=== PATIENT | male | born 1975 | race Hispanic/Latino ===

== ENCOUNTER 2017-05-29 08:41 | Inpatient (IN) | payer OTHER ==
[2017-05-29 08:52] VITALS: BMI 42.5
[2017-05-29 11:23] LABS: BASO # 0.1 K/uL (0.0-0.2); EOS # 0.1 K/uL (0.0-0.7); EOS % 1.5 % (0.0-4.0); HEMOGLOBIN 15.1 g/dL (12.0-18.0); LYMPH # 1.7 K/uL (1.0-4.3); LYMPH % 16.8 % (20.0-40.0); MEAN CELL VOLUME 88.8 fL (80.0-94.0); MEAN CORPUSCULAR HEMOGLOBIN 29.7 pg (27.0-31.0); MEAN CORPUSCULAR HGB CONC 33.5 g/dL (33.0-37.0); MEAN PLATELET VOLUME 8.3 fL (7.2-11.7); MONO # 0.6 K/uL (0.0-0.8); MONO % 6.2 % (0.0-10.0); NEUT # 7.5 K/uL (1.8-7.0); NEUT % 74.5 % (50.0-75.0); NRBC % 0.1 % (0.0-2.0); RBC 5.07 Mil/uL (4.40-5.90); RED CELL DISTRIBUTION WIDTH 14.4 % (11.5-14.5)
[2017-05-29 11:31] LABS: ALB/GLOB RATIO 0.8 (1.0-2.1); ALBUMIN 3.9 g/dL (3.5-5.0); ALT/SGPT 31 U/L (21-72); AST/SGOT 31 U/L (17-59); BLOOD UREA NITROGEN 14 mg/dL (9-20); CALCIUM 9.6 mg/dl (8.6-10.4); GFR AFRICAN-AMERICAN > 60; GFR NON-AFRICAN AMERICAN > 60
[2017-05-29 11:38] LABS: INR 1.2
[2017-05-29 11:40] LABS: PROTHROMBIN TIME 14.1 SECONDS (9.7-12.2)
[2017-05-29 11:41] LABS: SQUAMOUS EPITHIAL 3 /hpf (0-5); URINE BACTERIA OCC (<OCC); URINE BILIRUBIN NEGATIVE (NEGATIVE); URINE BLOOD 3+ (NEGATIVE); URINE CLARITY Hazy (Clear); URINE COLOR Yellow (YELLOW); URINE GLUCOSE (UA) NORMAL (Normal); URINE LEUKOCYTE ESTERASE 3+ Leu/uL (Negative); URINE PROTEIN 2+ mg/dL (NEGATIVE); URINE UROBILINOGEN NORMAL mg/dL (0.2-1.0)
--- NOTE | 2017-05-29 11:53 | C.PDOC ---
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 Rhett Sanchez for further evaluation on multiple kidney stones. Patient has has stone for more than 1 year with occasional hematuria. Patient is bedbound and denies fever, nausea, vomiting or any other physical complaints at this time. Chief Complaint (Nursing): Medical Clearance History Per: Patient History/Exam Limitations: no limitations Onset/Duration Of Symptoms: Days Current Symptoms Are (Timing): Still Present Past Medical History Reviewed: Historical Data, Nursing Documentation, Vital Signs Vital Signs: Last Vital Signs Temp 97.2 F L 05/29/17 14:30 Pulse 89 05/29/17 14:30 Resp 20 05/29/17 14:30 BP 130/84 05/29/17 14:30 Pulse Ox 99 05/29/17 14:30 - Medical History PMH: Back Problems, Gastritis, Kidney Stones Surgical History: Back Surgery Family History: States: No Known Family Hx - Social History Hx Alcohol Use: No Hx Substance Use: No - Immunization History Hx Tetanus Toxoid Vaccination: No Hx Influenza Vaccination: No Hx Pneumococcal Vaccination: No Review Of Systems Constitutional: Negative for: Fever, Chills Gastrointestinal: Negative for: Nausea, Vomiting Genitourinary: Positive for: Hematuria. Negative for: Dysuria Physical Exam - Physical Exam Appears: Non-toxic, Other (Morbidly obese) Skin: Warm, Dry, No Rash Head: Atraumatic, Normacephalic Eye(s): bilateral: Normal Inspection Oral Mucosa: Moist Neck: Normal ROM, Supple Cardiovascular: Rhythm Regular Respiratory: Normal Breath Sounds, No Rales, No Rhonchi, No Wheezing Gastrointestinal/Abdominal: Soft, No Tenderness, No Guarding, No Rebound Extremity: Normal ROM, Other (Right upper extremity Atrophy noted) Neurological/Psych: Oriented x3, Normal Speech, Normal Cognition ED Course And Treatment - Laboratory Results Result Diagrams: 05/29/17 11:15 05/29/17 11:15 ECG: Interpreted By Me, Viewed By Me ECG Rhythm: Sinus Rhythm Rate From EC (BPM) O2 Sat by Pulse Oximetry: 98 (RA) Pulse Ox Interpretation: Normal Progress Note: Spoke with Dr. Sanchez requested pre op labs and admission to medicine for procedure in hospital Disposition - Disposition Disposition: HOSPITALIZED Disposition Time: 11:00 Condition: STABLE - Clinical Impression Clinical Impression: Kidney stones, UTI (urinary tract infection) - Scribe Statement The provider has reviewed the documentation as recorded by the Andreibrhett Stephen All medical record entries made by the Andreibrhett were at my direction and personally dictated by me. I have reviewed the chart and agree that the record accurately reflects my personal performance of the history, physical exam, medical decision making, and the department course for this patient. I have also personally directed, reviewed, and agree with the discharge instructions and disposition.
--- NOTE | 2017-05-29 12:06 | CT ---
PROCEDURE: CT Abdomen and Pelvis without intravenous contrast HISTORY: flank pain h/o multiple kidney stones COMPARISON: None. TECHNIQUE: Helical CT of the abdomen and pelvis was performed without oral or intravenous contrast as per referring physician request. Contrast Dose: None Radiation dose: Total exam DLP = 1335.79 mGy-cm. This CT exam was performed using one or more of the following dose reduction techniques: Automated exposure control, adjustment of the mA and/or kV according to patient size, and/or use of iterative reconstruction technique. FINDINGS: LOWER THORAX: Mild cardiomegaly noted. There is a mild hiatal hernia. Limited bilateral basilar dependent atelectasis. No pleural or pericardial effusion. LIVER: Liver is diminished in attenuation diffusely compatible with hepatic steatosis. Hepatomegaly is also identified artifact from body habitus limits evaluation of hepatic detail as well as lack of intravenous contrast. No gross mass appreciable. GALLBLADDER AND BILE DUCTS: Unremarkable. PANCREAS: Unremarkable. No gross lesion or ductal dilatation. SPLEEN: Splenomegaly is identified to 15.5 cm also without definitive mass appreciable. ADRENALS: Unremarkable. No mass. KIDNEYS AND URETERS: Bilateral [id number] hydronephrosis is identified with numerous intrarenal calculi including at the bilateral renal pelves. Calculi are greater number at the left and right kidney. Mild proximal bilateral ureteral dilatation is identified with the mid and distal ureters normal in caliber. No radiodense urolithiasis identified in either ureter and the urinary bladder is unremarkable. Etiology bilateral hydronephrosis may be from bilateral renal pelvic calcifications including 1.7 cm calculus at the right and a 2.0 cm calculus at the left renal pelvis. A borderline left renal staghorn calcification appears to be developing. No definite perinephric fluid collection although limited parity nephric reaction seen bilaterally but greater the left than on the right. VASCULATURE: The abdominal aorta appears normal in caliber throughout. An infrarenal inferior vena cava filter identified in position. BOWEL: Unremarkable. No obstruction. No gross mural thickening. APPENDIX: Unremarkable. Normal appendix. PERITONEUM: Unremarkable. No free fluid. No free air. LYMPH NODES: Unremarkable. No enlarged lymph nodes. BLADDER: Unremarkable. REPRODUCTIVE: Unremarkable. BONES: Gross deformity of the right hip is appreciated with the greater and lesser trochanter exhibiting exostoses fusing with the inferomedial and superolateral acetabular margins. OTHER FINDINGS: None. IMPRESSION: Extensive intrarenal calculi identified bilaterally with [id number] bilateral hydronephrosis likely as a function of large intrapelvic calculi as described above. There is a near staghorn calculus in the left kidney with intrarenal calculi more numerous on the left and right pelvocaliceal systems. Limited perinephric changes seen the left greater than right kidney. Proximal ureters are mildly prominent with the mid and distal segments normal caliber overall. Etiology uncertain though loosing calculi or strictures are a possibility. No radiodense calculi are seen in either ureter. Urinary bladder appears unremarkable. Additional lesser findings as discussed above including hepatic splenomegaly an hepatic steatosis and others.
--- NOTE | 2017-05-29 13:18 | RAD ---
Chest x-ray single frontal view History: Infiltrate. Comparison: None available. Findings: Mild venous congestion. Mild patchy increased markings at the left lung base. Tortuous ectatic aorta. Mild cardiomegaly. Filter device projecting over the medial right felton thorax. Clinical correlation. Degenerative changes spine. Impression: Mild venous congestion. Mild patchy increased markings at the left lung base. Tortuous ectatic aorta. Mild cardiomegaly. Filter device projecting over the medial right felton thorax. Clinical correlation.
--- NOTE | 2017-05-29 15:11 | CP.PCM.PN ---
Subjective - Date & Time of Evaluation Date of Evaluation: 05/29/17 Time of Evaluation: 08:25 - Subjective Subjective: CC "Back pain, kidney stone" HPI - 42 year old male with a past medical history of Wilsons (diagnosed 4 years ago at [facility]), renal stones, gastritis presents today for renal colic secondary to renal stones occurring for the last year and a half. Pain is in the middle of his back sometimes radiating to the left about 5/10. Comes and goes and is worse with movement. Nothing helps the pain. He urinates about every 3 hours, denied hematuria or dysuria. Denies fever/chills. Dr. Sanchez was consulted and plans to do a cysto procedure this evening. Patient is bedbound and has a sacral ulcer. PMHX - Wilsons (diagnosied 4 years ago at [facility]), renal stones, gastritis Meds - Penicillamine 250mg PO Q6, Tramadol 50mg PO TID Allergies - NKDA Surg - L4/L5 back surgery, groin surgery Famhx - uncle at 42 of lung cancer Social - denies drugs/tobacco/alcohol. Lives with his stepfather in and apartment in [place] PMD - Dr. Russ Irwin ([place]) Objective - Vital Signs/Intake and Output Vital Signs (last 24 hours): Temp Pulse Resp BP Pulse Ox 97.9 F 90 18 131/77 96 05/29/17 12:54 05/29/17 12:54 05/29/17 12:54 05/29/17 12:54 05/29/17 12:54 - Medications Medications: Current Medications Ceftriaxone Sodium 1 gm/ (Sodium Chloride) 100 mls @ 100 mls/hr IVPB DAILY CAROL PRN Reason: Protocol Last Admin: 05/29/17 12:50 Dose: 100 mls/hr - Labs Labs: 05/29/17 11:15 05/29/17 11:15 PT 14.1 SECONDS (9.7-12.2) H 05/29/17 11:15 INR 1.2 05/29/17 11:15 APTT 28 SECONDS (21-34) 05/29/17 11:15 - Constitutional Appears: Non-toxic, No Acute Distress, Chronically Ill, Other (malodorus ) - Head Exam Head Exam: ATRAUMATIC, NORMAL INSPECTION - Eye Exam Eye Exam: Normal appearance Pupil Exam: NORMAL ACCOMODATION - ENT Exam ENT Exam: Mucous Membranes Moist - Respiratory Exam Respiratory Exam: Clear to Ausculation Bilateral, NORMAL BREATHING PATTERN. absent: Respiratory Distress - Cardiovascular Exam Cardiovascular Exam: REGULAR RHYTHM, +S1, +S2 Additional comments: surg scar - GI/Abdominal Exam GI & Abdominal Exam: Soft, Normal Bowel Sounds. absent: Distended, Firm, Guarding, Tenderness - Extremities Exam Extremities Exam: Normal Inspection - Back Exam Back Exam: NORMAL INSPECTION Additional comments: sacral ulcer - Neurological Exam Neurological Exam: Alert, Awake, Oriented x3 - Psychiatric Exam Psychiatric exam: Normal Affect, Normal Mood - Skin Skin Exam: Dry, Intact, Normal Color, Warm Assessment and Plan - Assessment and Plan (Free Text) Assessment: Nephrolithias Npo for cysto this evening Dr. Rhett Sanchez consulted, help appreciated 1 dose ceftriaxone given in the ED f/u Urine culture Tramadol prn pain Wilsons disease Penicillamine 250mg PO Q6 Back pain Tramadol prn Prophylaxis SCDs NO chemical anticoagulation due to prep op Pepcid 20mg PO bid Sacral Ulcer Wound care on board All management per Dr. Akbar.
[2017-05-29] MEDS ORDERED: Propofol 10 mg/ml Inj (20 ML) ONE (17:02)
[2017-05-29] MEDS ORDERED: Midazolam 2 MG/2 ML VIAL ONE (17:02)
--- NOTE | 2017-05-29 17:03 | PCM.URO ---
Urology Progress Note - Objective Lab Studies: Reviewed (full note dictated, operating room immediately and then further plans to follow) Lab Results Last 24 Hours: Laboratory Results - last 24 hr 05/29/17 05/29/17 05/29/17 11:15 11:15 11:15 WBC 10.0 RBC 5.07 Hgb 15.1 Hct 45.0 MCV 88.8 MCH 29.7 MCHC 33.5 RDW 14.4 Plt Count 272 MPV 8.3 Neut % (Auto) 74.5 Lymph % (Auto) 16.8 L [place] % (Auto) 6.2 Eos % (Auto) 1.5 Baso % (Auto) 1.0 Neut # (Auto) 7.5 H Lymph # (Auto) 1.7 [place] # (Auto) 0.6 Eos # (Auto) 0.1 Baso # (Auto) 0.1 PT 14.1 H INR 1.2 APTT 28 Sodium 141 Potassium 3.9 Chloride 102 Carbon Dioxide 24 Anion Gap 19 BUN 14 Creatinine 0.9 Est GFR ( Amer) > 60 Est GFR (Non-Af Amer) > 60 Random Glucose 127 H Calcium 9.6 Total Bilirubin 1.0 AST 31 ALT 31 Alkaline Phosphatase 58 Total Protein 9.1 H Albumin 3.9 Globulin 5.2 H Albumin/Globulin Ratio 0.8 L Urine Color Urine Clarity Urine pH Ur Specific [place] Urine Protein Urine Glucose (UA) Urine Ketones Urine Blood Urine Nitrate Urine Bilirubin Urine Urobilinogen Ur Leukocyte Esterase Urine WBC (Auto) Urine RBC (Auto) Ur Squamous Epith Cells Urine Bacteria 05/29/17 11:31 WBC RBC Hgb Hct MCV MCH MCHC RDW Plt Count MPV Neut % (Auto) Lymph % (Auto) [place] % (Auto) Eos % (Auto) Baso % (Auto) Neut # (Auto) Lymph # (Auto) [place] # (Auto) Eos # (Auto) Baso # (Auto) PT INR APTT Sodium Potassium Chloride Carbon Dioxide Anion Gap BUN Creatinine Est GFR ( Amer) Est GFR (Non-Af Amer) Random Glucose Calcium Total Bilirubin AST ALT Alkaline Phosphatase Total Protein Albumin Globulin Albumin/Globulin Ratio Urine Color Yellow Urine Clarity Hazy Urine pH 5.0 Ur Specific [place] 1.016 Urine Protein 2+ H Urine Glucose (UA) Normal Urine Ketones Negative Urine Blood 3+ H Urine Nitrate Positive H Urine Bilirubin Negative Urine Urobilinogen Normal Ur Leukocyte Esterase 3+ H Urine WBC (Auto) 1553 H Urine RBC (Auto) 567 H Ur Squamous Epith Cells 3 Urine Bacteria Occ H Intake & Output: Intake & Output 05/28/17 05/29/17 05/29/17 18:59 06:59 18:59 Weight 350 lb Vital Signs: Vital Signs - 24 hr 05/29/17 05/29/17 05/29/17 08:45 11:56 12:54 Temperature 98.8 F 97.9 F Pulse Rate 84 90 Respiratory 20 18 Rate Blood Pressure 128/74 131/77 O2 Sat by Pulse 98 98 96 Oximetry 05/29/17 14:30 Temperature 97.2 F L Pulse Rate 89 Respiratory 20 Rate Blood Pressure 130/84 O2 Sat by Pulse 99 Oximetry
[2017-05-29] MEDS ORDERED: Iohexol 240 (50 ml) ONE (17:08)
[2017-05-29] MEDS: Gentamicin 160 MG in Sodium Chloride 0.9% 100 ML IVPB ONE ×2 (17:20→17:37)
[2017-05-29] MEDS ORDERED: Bacitracin Ointment 30 GM TUBE ONE (17:23)
[2017-05-29] MEDS: PENICILLAMINE 250 MG PO SCH ×2 (19:53→23:48)
[2017-05-30] MEDS: PENICILLAMINE 250 MG PO SCH ×3 (06:18→18:21)
--- NOTE | 2017-05-30 06:47 | CON ---
DATE: 05/29/2017UROLOGY CONSULT REASON FOR CONSULTATION: Stone disease. HISTORY OF PRESENT ILLNESS: Mr. Boss, I am just meeting him. I spoke to him on the phone. He has been calling me and his mother has been calling almost nonstop with request to take care of his stone disease. By phone, I had gotten the sense of the patient's general medical condition. He actually lives in [place], [place]. He is in some kind of assisted program. I discussed and recommended that he go to an academic center. After discussing options, it seems like the patient is having a lot of difficulty finding a doctor. I offered that we can help him, but we have been trying to figure of out a way that really do this. In the mean time now, the patient actually came today to the emergency room and came in with just worsening pain, blood in the urine perhaps, and he is known to have stone disease. After discussing the options with the ER physician, the patient is being admitted now to Dr. Akbar's service. Putting me on consultation, I am going to take care of the stones as best possible, see below. . Past medical and surgical history as listed on the chart. There is significant finding as the patient has underlying Jabier's disease. 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 He is interested but he has not been able to get any assistance the way he describes. His mother lives in [place]. The parents are . He describes that he is looking for some assistance (he will leave this to the social workers who are in the hospital and perhaps also opted any other suggestions). From the Urology standpoint, we are going to focus on stone disease. PAST MEDICAL AND SURGICAL HISTORY: As listed in the chart, otherwise, unremarkable. REVIEW OF SYSTEMS: As listed. PHYSICAL EXAMINATION: GENERAL/VITAL SIGNS: A well-developed, well-nourished male, currently resting comfortably, in no obvious distress. Apparently, before he had some grimacing and pain. Of note, the patient is about 6 feet 4 inches, about 250 plus pounds. The exact weight is to be determined. His respiratory status, is in no apparent distress. LUNGS: Clear. HEART: Normal. ABDOMEN: Overall soft. : Otherwise unremarkable. LABORATORY DATA: See chart. Also CT scan, see chart. The patient has a tremendous amount of stone burden; on the left side, he has a definite staghorn; the right side is not clear, but he has got a lot of stone . DIAGNOSES: Urolithiasis hematuria, voiding dysfunction, nocturia, urgency, frequency. PLAN: As follows. We are going to take care of the stones as best as possible. We will do as much as we can safely and may be even do cystourethroscopy today. We will see how the patient does. The patient has bilateral stone disease. We will work on the left side and right side. We will make that determination. After discussion of all these, we will plan to proceed. We discussed options for care. Further plans will follow. In summary, the plan is as follows. 1. The patient to OR for treatments. 2. Medical assistance consultation. Mohamud Sanchez MD
--- NOTE | 2017-05-30 08:56 | RAD ---
HISTORY: JORGE KIDNEY STONES COMPARISON: CT abdomen and pelvis from 05/29/2017 FINDINGS: There are 3 large round calcifications overlying the right renal silhouette, the largest likely in the renal pelvis measures 1.6 cm. There are multiple large calcifications overlying the left renal silhouette, the largest in the interpolar region measures 1.8 cm. BOWEL: Normal. No obstruction. No free air. BONES: Normal. OTHER FINDINGS: An IVC filter overlies the right paravertebral region at L3. IMPRESSION: Bilateral large renal stones, the largest on the right measures 1.6 cm and the largest on the left measures 1.8 cm.
--- NOTE | 2017-05-30 10:26 | PCM.URO ---
Urology Progress Note - General General: No Complaints, Tolerating Diet - Subjective Abdominal Pain: No Flank Pain: No Nausea: No Vomiting: No Voiding Well: No (catheter in place) Hematuria: No Dsypnea: No Chest Pain: No Fever & Chills: No - Objective Lab Results Last 24 Hours: Laboratory Results - last 24 hr 05/29/17 05/29/17 05/29/17 11:15 11:15 11:15 WBC 10.0 RBC 5.07 Hgb 15.1 Hct 45.0 MCV 88.8 MCH 29.7 MCHC 33.5 RDW 14.4 Plt Count 272 MPV 8.3 Neut % (Auto) 74.5 Lymph % (Auto) 16.8 L [place] % (Auto) 6.2 Eos % (Auto) 1.5 Baso % (Auto) 1.0 Neut # (Auto) 7.5 H Lymph # (Auto) 1.7 [place] # (Auto) 0.6 Eos # (Auto) 0.1 Baso # (Auto) 0.1 PT 14.1 H INR 1.2 APTT 28 Sodium 141 Potassium 3.9 Chloride 102 Carbon Dioxide 24 Anion Gap 19 BUN 14 Creatinine 0.9 Est GFR ( Amer) > 60 Est GFR (Non-Af Amer) > 60 Random Glucose 127 H Calcium 9.6 Total Bilirubin 1.0 AST 31 ALT 31 Alkaline Phosphatase 58 Total Protein 9.1 H Albumin 3.9 Globulin 5.2 H Albumin/Globulin Ratio 0.8 L Urine Color Urine Clarity Urine pH Ur Specific [place] Urine Protein Urine Glucose (UA) Urine Ketones Urine Blood Urine Nitrate Urine Bilirubin Urine Urobilinogen Ur Leukocyte Esterase Urine WBC (Auto) Urine RBC (Auto) Ur Squamous Epith Cells Urine Bacteria 05/29/17 11:31 WBC RBC Hgb Hct MCV MCH MCHC RDW Plt Count MPV Neut % (Auto) Lymph % (Auto) [place] % (Auto) Eos % (Auto) Baso % (Auto) Neut # (Auto) Lymph # (Auto) [place] # (Auto) Eos # (Auto) Baso # (Auto) PT INR APTT Sodium Potassium Chloride Carbon Dioxide Anion Gap BUN Creatinine Est GFR ( Amer) Est GFR (Non-Af Amer) Random Glucose Calcium Total Bilirubin AST ALT Alkaline Phosphatase Total Protein Albumin Globulin Albumin/Globulin Ratio Urine Color Yellow Urine Clarity Hazy Urine pH 5.0 Ur Specific [place] 1.016 Urine Protein 2+ H Urine Glucose (UA) Normal Urine Ketones Negative Urine Blood 3+ H Urine Nitrate Positive H Urine Bilirubin Negative Urine Urobilinogen Normal Ur Leukocyte Esterase 3+ H Urine WBC (Auto) 1553 H Urine RBC (Auto) 567 H Ur Squamous Epith Cells 3 Urine Bacteria Occ H Intake & Output: Intake & Output 05/29/17 05/30/17 05/30/17 18:59 06:59 18:59 Intake Total 354 800 240 Output Total 750 Balance 354 50 240 Weight 350 lb Intake: IV 354 Intake, IV Amount 300 Left Hand 300 Oral 500 240 Output: Urine 750 Urethral (Sanchez) 750 Vital Signs: Vital Signs - 24 hr 05/29/17 05/29/17 05/29/17 12:54 14:30 17:56 Temperature 97.9 F 97.2 F L 99.6 F Pulse Rate 90 89 88 Respiratory 18 20 20 Rate Blood Pressure 131/77 130/84 140/77 O2 Sat by Pulse 96 99 97 Oximetry 05/29/17 05/29/17 05/29/17 18:15 18:19 18:30 Temperature Pulse Rate 86 84 Respiratory 20 18 Rate Blood Pressure 144/74 152/80 H O2 Sat by Pulse 98 98 99 Oximetry 05/29/17 05/29/17 05/29/17 18:45 19:00 19:30 Temperature 99.5 F 97.3 F L Pulse Rate 80 78 84 Respiratory 20 18 20 Rate Blood Pressure 142/69 142/69 113/71 O2 Sat by Pulse 97 97 97 Oximetry 05/29/17 05/30/17 05/30/17 23:55 06:39 08:10 Temperature 97.6 F 98.6 F 98.0 F Pulse Rate 95 H 86 82 Respiratory 20 20 Rate Blood Pressure 148/67 119/65 107/61 O2 Sat by Pulse 95 95 Oximetry - Physical Exam Abdominal Exam: Soft, Non-Tender, Non-Distended (obese) Back: No CVA Tenderness Genitalia: Without Inflammation Urinary Catheter Draining Well: Yes (folloower catheter taped in place) Urine Color: Clear, Yellow - Male Phallus: Normal - Plan Catheter Care: Yes Intake & Output: Yes Additional Information: Imp: urethral stricture. urolithiasis. stable p dialtion and catheterization, and attempted cysto - Date & Time of Note Date: 05/30/17 Time: 10:26
--- NOTE | 2017-05-30 17:43 | RAD ---
PROCEDURE: Intraoperative fluoroscopy HISTORY: JORGE KIDNEY STONE COMPARISON: Not available TECHNIQUE: Intraoperative fluoroscopy was provided for a retrograde cystogram. Total time of fluoroscopy was 19.7 seconds. FINDINGS: Multiple fluoroscopic spot films are submitted. Films are on file for review. IMPRESSION: Fluoroscopy provided.
--- NOTE | 2017-05-30 20:13 | CP.PCM.PN ---
Subjective - Date & Time of Evaluation Date of Evaluation: 05/30/17 Time of Evaluation: 12:00 - Subjective Subjective: PGY 2 Medicine Note- Dr. Akbar's service Patient seen and examined in no apparent acute distress. Patient s/p cysto procedure. Patient states that he has a history of having had kidney stones in the past. He states that family members have had as well. Patient denies acute complaints at this time. Objective - Vital Signs/Intake and Output Vital Signs (last 24 hours): Temp Pulse Resp BP Pulse Ox 97.8 F 80 20 129/69 95 05/30/17 15:20 05/30/17 15:20 05/30/17 15:20 05/30/17 15:20 05/30/17 15:20 Intake and Output: 05/30/17 05/31/17 18:59 06:59 Intake Total 690 Output Total 300 Balance 390 - Medications Medications: Current Medications Famotidine (Pepcid) 20 mg PO BID [facility] Last Admin: 05/30/17 18:22 Dose: 20 mg Home Med (Patient's Own Medication) 1 tab PO Q6H [facility] Last Admin: 05/30/17 18:21 Dose: 1 tab Ceftriaxone Sodium 1 gm/ (Sodium Chloride) 100 mls @ 100 mls/hr IVPB DAILY CAROL PRN Reason: Protocol Last Admin: 05/30/17 10:37 Dose: 100 mls/hr Tramadol HCl (Ultram) 50 mg PO TID PRN PRN Reason: Pain, severe (8-10) Last Admin: 05/30/17 19:19 Dose: 50 mg - Labs Labs: 05/29/17 11:15 05/29/17 11:15 PT 14.1 SECONDS (9.7-12.2) H 05/29/17 11:15 INR 1.2 05/29/17 11:15 APTT 28 SECONDS (21-34) 05/29/17 11:15 - Constitutional Appears: Non-toxic, No Acute Distress, Other (large body habitus) - Head Exam Head Exam: ATRAUMATIC - Eye Exam Eye Exam: EOMI Pupil Exam: NORMAL ACCOMODATION - ENT Exam ENT Exam: Mucous Membranes Moist - Respiratory Exam Respiratory Exam: NORMAL BREATHING PATTERN - Cardiovascular Exam Cardiovascular Exam: +S1, +S2 - GI/Abdominal Exam GI & Abdominal Exam: Soft, Normal Bowel Sounds - Neurological Exam Neurological Exam: Alert, Awake, Oriented x3 - Psychiatric Exam Psychiatric exam: Normal Affect, Normal Mood - Skin Skin Exam: Abrasion (left upper extremity), Dry, Normal Color, Warm Assessment and Plan - Assessment and Plan (Free Text) Assessment: Nephrolithiasis S/P Cystoscopy Dr. Rhett Sanchez consulted- F/U recommendations Ceftriaxone and Florastor on board Initial UC -multiple species noted. Could be contaminant. F/U repeat culture Tramadol prn pain Wilsons disease Penicillamine 250mg PO Q6 Back pain Tramadol prn Sacral Ulcer Wound care nursing on board F/U recommentations Prophylaxis SCDs Lovenox SC Pepcid 20mg PO bid All management per Dr. Akbar.
[2017-05-31] MEDS: PENICILLAMINE 250 MG PO SCH ×4 (00:28→18:01)
[2017-06-01] MEDS: PENICILLAMINE 250 MG PO SCH ×4 (00:12→17:47)
[2017-06-01] MEDS: Enoxaparin 40 mg Syringe SC SCH (10:29)
[2017-06-01] MEDS: Saccharomyces Boulardi 250 mg Cap PO SCH ×2 (10:29→17:47)
[2017-06-01] MEDS: cefTRIAXone IV 1 gm in Dextros 50 ML IVPB SCH (10:33)
--- NOTE | 2017-06-01 11:12 | CARD ---
APPROVED REPORT EKG Measurement Heart [id number] <Conclusion> Normal sinus rhythm Poor R wave progression may be normal variant. Borderline EKG
[2017-06-02] MEDS: PENICILLAMINE 250 MG PO SCH ×5 (00:54→23:55)
[2017-06-02 06:49] LABS: BASO # 0.1 K/uL (0.0-0.2); BASO % 1.1 % (0.0-2.0); EOS # 0.4 K/uL (0.0-0.7); EOS % 4.2 % (0.0-4.0); HEMOGLOBIN 13.2 g/dL (12.0-18.0); LYMPH # 1.9 K/uL (1.0-4.3); LYMPH % 18.9 % (20.0-40.0); MEAN CELL VOLUME 88.4 fL (80.0-94.0); MEAN CORPUSCULAR HEMOGLOBIN 30.2 pg (27.0-31.0); MEAN CORPUSCULAR HGB CONC 34.1 g/dL (33.0-37.0); MEAN PLATELET VOLUME 8.5 fL (7.2-11.7); MONO # 0.8 K/uL (0.0-0.8); MONO % 8.2 % (0.0-10.0); NEUT # 6.9 K/uL (1.8-7.0); NEUT % 67.6 % (50.0-75.0); RBC 4.38 Mil/uL (4.40-5.90); RED CELL DISTRIBUTION WIDTH 13.9 % (11.5-14.5); WHITE BLOOD COUNT 10.3 K/uL (4.8-10.8)
[2017-06-02 07:49] LABS: ALB/GLOB RATIO 0.8 (1.0-2.1); ALBUMIN 3.3 g/dL (3.5-5.0); ALT/SGPT 15 U/L (21-72); AST/SGOT 23 U/L (17-59); BLOOD UREA NITROGEN 11 mg/dL (9-20); CALCIUM 7.8 mg/dl (8.6-10.4); GFR AFRICAN-AMERICAN > 60; GFR NON-AFRICAN AMERICAN > 60
--- NOTE | 2017-06-02 08:19 | CP.PCM.PN ---
Subjective - Date & Time of Evaluation Date of Evaluation: 06/02/17 Time of Evaluation: 08:49 - Subjective Subjective: PGY 2 Medicine Note- Dr. Akbar's service Patient seen and examined in no apparent acute distress. 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 Patient would not elaborate more when questioned. Patient denies chest pain, urinary discomfort, abdominal pain, subjective fevers or chills at this time. Objective - Vital Signs/Intake and Output Vital Signs (last 24 hours): Temp Pulse Resp BP Pulse Ox 97.8 F 64 20 111/76 94 L 06/02/17 07:05 06/02/17 07:05 06/02/17 07:05 06/02/17 07:05 06/02/17 07:05 Intake and Output: 06/02/17 06/02/17 06:59 18:59 Output Total 1200 Balance -1200 - Medications Medications: Current Medications Enoxaparin Sodium (Lovenox) 40 mg SC DAILY [facility] Last Admin: 06/01/17 10:29 Dose: 40 mg Famotidine (Pepcid) 20 mg PO BID [facility] Last Admin: 06/01/17 17:46 Dose: 20 mg Home Med (Patient's Own Medication) 1 tab PO Q6H [facility] Last Admin: 06/02/17 06:14 Dose: 1 tab Ceftriaxone Sodium (Rocephin Iv 1 Gm Duplex) 50 mls @ 100 mls/hr IVPB DAILY [facility] PRN Reason: Protocol Last Admin: 06/01/17 10:33 Dose: 100 mls/hr Saccharomyces Boulardii (Florastor) 250 mg PO BID [facility] Last Admin: 06/01/17 17:47 Dose: 250 mg Tramadol HCl (Ultram) 50 mg PO TID PRN PRN Reason: Pain, severe (8-10) Last Admin: 05/30/17 19:19 Dose: 50 mg - Labs Labs: 06/02/17 06:38 06/02/17 06:38 PT 14.1 SECONDS (9.7-12.2) H 05/29/17 11:15 INR 1.2 05/29/17 11:15 APTT 28 SECONDS (21-34) 05/29/17 11:15 - Constitutional Appears: Non-toxic, No Acute Distress, Other (large body habitus) - Head Exam Head Exam: ATRAUMATIC - Eye Exam Eye Exam: EOMI, PERRL Pupil Exam: NORMAL ACCOMODATION - ENT Exam ENT Exam: Mucous Membranes Moist - Neck Exam Neck Exam: Full ROM - Respiratory Exam Respiratory Exam: NORMAL BREATHING PATTERN - Cardiovascular Exam Cardiovascular Exam: +S1, +S2 - GI/Abdominal Exam GI & Abdominal Exam: Soft - Extremities Exam Extremities Exam: Full ROM - Neurological Exam Neurological Exam: Alert, Awake - Psychiatric Exam Psychiatric exam: Normal Affect, Normal Mood - Skin Skin Exam: Dry, Rash (left upper extremity), Warm Assessment and Plan - Assessment and Plan (Free Text) Assessment: Nephrolithiasis S/P Cystoscopy Dr. Rhett Sanchez consulted. Patient for procedure tomorrow. Earlier procedure attempts halted 05/29. F/U recommendations Ceftriaxone and Florastor on board Initial UC -multiple species noted. Could be contaminant. F/U repeat culture. Original order was cancelled. Unclear reason. Reordered. 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 All management per Dr. Akbar.
[2017-06-02] MEDS ORDERED: Magnesium Sulfate 1 gm in D5W 1 GM/100 ML BAG IVPB ONE (08:30)
[2017-06-02] MEDS ORDERED: Potassium Phosphate 15 MMOLE in Sodium Chloride 0.9% 250 ML IVPB ONE (09:00)
[2017-06-02] MEDS: cefTRIAXone IV 1 gm in Dextros 50 ML IVPB SCH (09:20)
--- NOTE | 2017-06-02 09:37 | PN ---
DATE: 06/01/2017 The patient is on IV antibiotics, supportive care. Maria R Akbar MD
--- NOTE | 2017-06-02 09:37 | HP ---
HISTORY OF PRESENT ILLNESS: Mr. Boss is a 42-year-old male with history of chronic kidney disease, history of kidney stone, admitted to the hospital with chief complaint of flank pain and kidney stone. The patient was seen here on admission. PHYSICAL EXAMINATION GENERAL: The patient is awake, alert, and obese. VITAL SIGNS: Temperature 98, pulse 92. HEENT: Within normal limits. NECK: Supple. CHEST: Symmetrical. HEART: Regular. ABDOMEN: Soft. EXTREMITIES: No edema. IMPRESSION: Kidney stones, urinary tract infection. The patient needs bed rest. IV antibiotics. Urology consult. Maria R Akbar MD
[2017-06-02] MEDS: Saccharomyces Boulardi 250 mg Cap PO SCH ×2 (10:44→18:27)
[2017-06-02] MEDS: Enoxaparin 40 mg Syringe SC SCH (10:44)
--- NOTE | 2017-06-02 13:39 | PCM.URO ---
Urology Progress Note - Objective Lab Studies: Reviewed (dx: strictures, hematuria, urolithiasis, plans : cystoscopy 06/03) Lab Results Last 24 Hours: Laboratory Results - last 24 hr 06/02/17 06/02/17 06:38 06:38 WBC 10.3 RBC 4.38 L Hgb 13.2 Hct 38.7 MCV 88.4 MCH 30.2 MCHC 34.1 RDW 13.9 Plt Count 276 MPV 8.5 Neut % (Auto) 67.6 Lymph % (Auto) 18.9 L Charles % (Auto) 8.2 Eos % (Auto) 4.2 H Baso % (Auto) 1.1 Neut # (Auto) 6.9 Lymph # (Auto) 1.9 Charles # (Auto) 0.8 Eos # (Auto) 0.4 Baso # (Auto) 0.1 Sodium 140 Potassium 3.4 L Chloride 105 Carbon Dioxide 23 Anion Gap 15 BUN 11 Creatinine 1.2 Est GFR ( Amer) > 60 Est GFR (Non-Af Amer) > 60 Random Glucose 150 H Calcium 7.8 L Phosphorus 2.3 L Magnesium 1.4 L Total Bilirubin 0.7 AST 23 ALT 15 L D Alkaline Phosphatase 50 Total Protein 7.4 Albumin 3.3 L Globulin 4.1 H Albumin/Globulin Ratio 0.8 L Intake & Output: Intake & Output 06/01/17 06/02/17 06/02/17 18:59 06:59 18:59 Intake Total 350 Output Total 200 1200 Balance 150 -1200 Weight 365 lb Intake: Intake, IV Amount 50 Left Hand 50 Oral 300 Output: Urine 200 1200 Urethral (Sanchez) 200 1200 Vital Signs: Vital Signs - 24 hr 06/01/17 06/01/17 06/02/17 17:05 23:55 07:05 Temperature 98.2 F 97.6 F 97.8 F Pulse Rate 77 91 H 64 Respiratory 20 20 20 Rate Blood Pressure 125/82 126/69 111/76 O2 Sat by Pulse 98 97 94 L Oximetry
[2017-06-02] MEDS: Nystatin 100,000 Units/gm Topical Pow(15 gm) TOP SCH (21:34)
[2017-06-03] MEDS: PENICILLAMINE 250 MG PO SCH ×3 (06:19→18:46)
[2017-06-03] MEDS: Saccharomyces Boulardi 250 mg Cap PO SCH ×3 (08:27→18:45)
[2017-06-03 08:40] LABS: BASO # 0.1 K/uL (0.0-0.2); BASO % 0.8 % (0.0-2.0); EOS # 0.4 K/uL (0.0-0.7); EOS % 5.3 % (0.0-4.0); HEMOGLOBIN 13.8 g/dL (12.0-18.0); LYMPH # 1.8 K/uL (1.0-4.3); LYMPH % 21.9 % (20.0-40.0); MEAN CELL VOLUME 89.4 fL (80.0-94.0); MEAN CORPUSCULAR HEMOGLOBIN 29.8 pg (27.0-31.0); MEAN CORPUSCULAR HGB CONC 33.3 g/dL (33.0-37.0); MEAN PLATELET VOLUME 8.9 fL (7.2-11.7); MONO # 0.6 K/uL (0.0-0.8); MONO % 7.4 % (0.0-10.0); NEUT # 5.4 K/uL (1.8-7.0); NEUT % 64.6 % (50.0-75.0); NRBC % 0.1 % (0.0-2.0); RBC 4.65 Mil/uL (4.40-5.90); WHITE BLOOD COUNT 8.3 K/uL (4.8-10.8)
[2017-06-03 08:47] LABS: INR 1.3; PROTHROMBIN TIME 14.7 SECONDS (9.7-12.2)
[2017-06-03 08:54] LABS: ALB/GLOB RATIO 0.8 (1.0-2.1); ALBUMIN 3.4 g/dL (3.5-5.0); ALT/SGPT 19 U/L (21-72); AST/SGOT 24 U/L (17-59); BLOOD UREA NITROGEN 10 mg/dL (9-20); CALCIUM 7.9 mg/dl (8.6-10.4); GFR AFRICAN-AMERICAN > 60; GFR NON-AFRICAN AMERICAN > 60
--- NOTE | 2017-06-03 10:11 | CP.PCM.PN ---
Subjective - Date & Time of Evaluation Date of Evaluation: 06/03/17 Time of Evaluation: 07:45 - Subjective Subjective: PGY 2 Med Note- Dr. Akbar's service Patient seen and examined bedside. No acute events overnight per nursing. Patient denies complaints. Patient to OR today for cysto procedure. Objective - Vital Signs/Intake and Output Vital Signs (last 24 hours): Temp Pulse Resp BP Pulse Ox 97.8 F 71 20 121/77 95 06/03/17 08:00 06/03/17 08:00 06/03/17 08:00 06/03/17 08:00 06/03/17 08:00 Intake and Output: 06/03/17 06/03/17 06:59 18:59 Output Total 1100 Balance -1100 - Medications Medications: Current Medications Enoxaparin Sodium (Lovenox) 40 mg SC DAILY [facility] Last Admin: 06/02/17 10:44 Dose: 40 mg Famotidine (Pepcid) 20 mg PO BID [facility] Last Admin: 06/03/17 08:27 Dose: 20 mg Home Med (Patient's Own Medication) 1 tab PO Q6H [facility] Last Admin: 06/03/17 06:19 Dose: 1 tab Ceftriaxone Sodium (Rocephin Iv 1 Gm Duplex) 50 mls @ 100 mls/hr IVPB DAILY [facility] PRN Reason: Protocol Last Admin: 06/02/17 09:20 Dose: 100 mls/hr Nystatin (Nystop Topical Powder) 0 gm TOP TID [facility] Last Admin: 06/02/17 21:34 Dose: 1 applic Saccharomyces Boulardii (Florastor) 250 mg PO BID [facility] Last Admin: 06/03/17 08:27 Dose: 250 mg Tramadol HCl (Ultram) 50 mg PO TID PRN PRN Reason: Pain, severe (8-10) Last Admin: 06/03/17 03:05 Dose: 50 mg - Labs Labs: 06/03/17 08:27 06/03/17 08:27 PT 14.7 SECONDS (9.7-12.2) H 06/03/17 08:27 INR 1.3 06/03/17 08:27 APTT 29 SECONDS (21-34) 06/03/17 08:27 - Constitutional Appears: Non-toxic, No Acute Distress, Other (large body habitus) - Head Exam Head Exam: ATRAUMATIC, NORMAL INSPECTION - Eye Exam Eye Exam: EOMI, Normal appearance Pupil Exam: NORMAL ACCOMODATION - ENT Exam ENT Exam: Mucous Membranes Moist - Neck Exam Neck Exam: Full ROM - Respiratory Exam Respiratory Exam: NORMAL BREATHING PATTERN. absent: Wheezes - Cardiovascular Exam Cardiovascular Exam: +S1, +S2 - GI/Abdominal Exam GI & Abdominal Exam: Soft, Normal Bowel Sounds - Extremities Exam Extremities Exam: Full ROM - Back Exam Back Exam: Full ROM - Neurological Exam Neurological Exam: Alert, Awake, Oriented x3 - Psychiatric Exam Psychiatric exam: Normal Affect, Normal Mood - Skin Skin Exam: Dry, Normal Color, Warm Assessment and Plan - Assessment and Plan (Free Text) Assessment: Nephrolithiasis S/P Cystoscopy Dr. Rhett Sanchez consulted. Patient for procedure 06/03. Earlier procedure attempts halted 05/29. F/U recommendations Ceftriaxone and Florastor on board Initial UC -multiple species noted. Could be contaminant. F/U repeat culture. Original order was cancelled twice. Unclear reason. Reordered. Tramadol prn pain Jabier's disease Penicillamine 250mg PO Q6 Back pain Tramadol prn F/U PT recommendations Sacral Ulcer Wound care nursing on board F/U recommendations Prophylaxis SCDs Lovenox SC Pepcid 20mg PO bid Discussed with attending . All management per Dr. Akbar.
[2017-06-03] MEDS: Nystatin 100,000 Units/gm Topical Pow(15 gm) TOP SCH ×3 (10:29→18:45)
[2017-06-03] MEDS: cefTRIAXone IV 1 gm in Dextros 50 ML IVPB SCH (10:30)
[2017-06-03] MEDS ORDERED: Propofol 10 mg/ml Inj (20 ML) ONE (15:31)
[2017-06-03] MEDS ORDERED: Midazolam 2 MG/2 ML VIAL ONE (15:31)
[2017-06-03] MEDS ORDERED: Lidocaine 2% Jelly (Uro-Jet) ONE (15:42)
[2017-06-03] MEDS ORDERED: Iohexol 240 (50 ml) ONE (15:42)
--- NOTE | 2017-06-03 18:43 | RAD ---
HISTORY: JORGE KIDNEY STONES COMPARISON: 05/29/2017. FINDINGS: BOWEL: Normal. No obstruction. No free air. BONES: No significant interval change compared to the prior examination(s). OTHER FINDINGS: Staghorn calculi and calcific fragments on the right. Fewer and smaller calculi identified overlying the expected location of the left kidney. Sanchez catheter in the urinary bladder. IMPRESSION: No significant interval change compared to the prior examination(s).
--- NOTE | 2017-06-03 18:50 | RAD ---
PROCEDURE: Intraoperative Fluoroscopy. HISTORY: JORGE KIDNEY STONES FINDINGS: Fluoroscopic assistance was provided for cystogram. Please refer to the operative report from FREDA Uribe , MD [facility]. Total fluoroscopic time (continuous mode) utilized during the procedure 7.5 (seconds). Total exam DLP: (mGy) per meter squared 1.19
[2017-06-03 19:30] VITALS: RESP 20
[2017-06-04] MEDS: PENICILLAMINE 250 MG PO SCH ×4 (00:09→17:45)
--- NOTE | 2017-06-04 07:48 | CP.PCM.PN ---
Subjective - Date & Time of Evaluation Date of Evaluation: 06/04/17 Time of Evaluation: 08:00 - Subjective Subjective: PGY 2 Medicine Note- Dr. Akbar's service Patient seen and examined in no apparent acute distress. 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 Patient only admitted to some mild back pain where his ulcer is located. Patient denies chest pain, urinary discomfort, abdominal pain, subjective fevers or chills at this time. Objective - Vital Signs/Intake and Output Vital Signs (last 24 hours): Temp Pulse Resp BP Pulse Ox 98.2 F 75 20 114/68 95 06/04/17 04:35 06/04/17 04:35 06/04/17 04:35 06/04/17 04:35 06/04/17 04:35 Intake and Output: 06/04/17 06/04/17 06:59 18:59 Intake Total 110 Output Total 850 Balance -740 - Medications Medications: Current Medications Enoxaparin Sodium (Lovenox) 40 mg SC DAILY [facility] Last Admin: 06/02/17 10:44 Dose: 40 mg Famotidine (Pepcid) 20 mg PO BID [facility] Last Admin: 06/03/17 18:46 Dose: 20 mg Home Med (Patient's Own Medication) 1 tab PO Q6H [facility] Last Admin: 06/04/17 05:33 Dose: 1 tab Ceftriaxone Sodium (Rocephin Iv 1 Gm Duplex) 50 mls @ 100 mls/hr IVPB DAILY [facility] PRN Reason: Protocol Last Admin: 06/03/17 10:30 Dose: 100 mls/hr Gentamicin Sulfate 80 mg/ (Sodium Chloride) 102 mls @ 100 mls/hr IVPB Q24H [facility] PRN Reason: Protocol Last Admin: 06/03/17 17:15 Dose: 50 mls Nystatin (Nystop Topical Powder) 0 gm TOP TID [facility] Last Admin: 06/03/17 18:45 Dose: 1 applic Saccharomyces Boulardii (Florastor) 250 mg PO BID [facility] Last Admin: 06/03/17 18:45 Dose: 250 mg Tramadol HCl (Ultram) 50 mg PO TID PRN PRN Reason: Pain, severe (8-10) Last Admin: 06/04/17 00:09 Dose: 50 mg - Labs Labs: 06/03/17 08:27 06/03/17 08:27 PT 14.7 SECONDS (9.7-12.2) H 06/03/17 08:27 INR 1.3 06/03/17 08:27 APTT 29 SECONDS (21-34) 06/03/17 08:27 - Constitutional Appears: Non-toxic, No Acute Distress, Chronically Ill - Head Exam Head Exam: ATRAUMATIC, NORMAL INSPECTION - Eye Exam Eye Exam: EOMI - ENT Exam ENT Exam: Mucous Membranes Moist - Respiratory Exam Respiratory Exam: Clear to Ausculation Bilateral, NORMAL BREATHING PATTERN. absent: Respiratory Distress - Cardiovascular Exam Cardiovascular Exam: REGULAR RHYTHM, +S1, +S2 - GI/Abdominal Exam GI & Abdominal Exam: Soft, Normal Bowel Sounds. absent: Distended, Firm, Guarding, Tenderness - Extremities Exam Extremities Exam: Normal Inspection - Back Exam Additional comments: sacral ulcer - Neurological Exam Neurological Exam: Alert, Awake, Oriented x3 - Skin Additional comments: Rash (left upper extremity) Assessment and Plan - Assessment and Plan (Free Text) Assessment: Nephrolithiasis S/P Cystoscopy Dr. Rhett Sanchez consulted. Patient for procedure tomorrow. Earlier procedure attempts halted 05/29. Ceftriaxone and Florastor on board Initial UC -multiple species noted. Could be contaminant. F/U repeat culture. Original order was cancelled. Unclear reason. Reordered. Patient is stable for DC per Dr. 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 All management per Dr. Akbar. Patient is stable for discharge home. Patient is to follow up with his primary care doctor within one week of discharge. He is also to call Dr. Rhett Sanchez to discuss discharge instructions and to arrange follow up. Patient will be discharged with the collins catheter in place. He is to resume his home medications. Patient is to return to the emergency room if symptoms return. All instructions explained to the patient and he agrees.
[2017-06-04 08:09] LABS: BASO # 0.2 K/uL (0.0-0.2); BASO % 2.1 % (0.0-2.0); EOS # 0.4 K/uL (0.0-0.7); EOS % 4.6 % (0.0-4.0); HEMOGLOBIN 13.3 g/dL (12.0-18.0); LYMPH # 1.5 K/uL (1.0-4.3); LYMPH % 19.6 % (20.0-40.0); MEAN CELL VOLUME 89.2 fL (80.0-94.0); MEAN CORPUSCULAR HEMOGLOBIN 29.6 pg (27.0-31.0); MEAN CORPUSCULAR HGB CONC 33.2 g/dL (33.0-37.0); MEAN PLATELET VOLUME 8.7 fL (7.2-11.7); MONO # 0.6 K/uL (0.0-0.8); MONO % 7.6 % (0.0-10.0); NEUT # 5.2 K/uL (1.8-7.0); NEUT % 66.1 % (50.0-75.0); NRBC % 0.1 % (0.0-2.0); RBC 4.51 Mil/uL (4.40-5.90); RED CELL DISTRIBUTION WIDTH 14.1 % (11.5-14.5); WHITE BLOOD COUNT 7.9 K/uL (4.8-10.8)
[2017-06-04 08:22] LABS: ALB/GLOB RATIO 0.8 (1.0-2.1); ALBUMIN 3.2 g/dL (3.5-5.0); ALT/SGPT 18 U/L (21-72); AST/SGOT 25 U/L (17-59); BLOOD UREA NITROGEN 13 mg/dL (9-20); CALCIUM 7.9 mg/dl (8.6-10.4); GFR AFRICAN-AMERICAN > 60; GFR NON-AFRICAN AMERICAN > 60
[2017-06-04] MEDS: Saccharomyces Boulardi 250 mg Cap PO SCH ×2 (10:15→17:44)
[2017-06-04] MEDS: Nystatin 100,000 Units/gm Topical Pow(15 gm) TOP SCH ×2 (10:15→13:31)
[2017-06-04] MEDS: Enoxaparin 40 mg Syringe SC SCH (10:15)
[2017-06-04] MEDS: cefTRIAXone IV 1 gm in Dextros 50 ML IVPB SCH (10:16)
[2017-06-04 16:06] VITALS: BP 138/75; PULSE 76; TEMP 98; O2SAT 97
--- NOTE | 2017-07-09 06:46 | OP ---
PROCEDURE DATE: 05/29/2017 PREOPERATIVE DIAGNOSES: Gross hematuria, voiding dysfunction, bilateral stone disease. POSTOPERATIVE DIAGNOSES: Gross hematuria, voiding dysfunction, bilateral stone disease and urethral stricture disease. PROCEDURE: A 10-Indonesian cystoscope, the procedure has been attempted, IOU, but in the end it is a draining clear yellow urine, but there was no other further dilators and I just wanted to drain the bladder. FINDINGS: Basically are that of urinary retention with greater than 500 mL in the bladder. INDICATIONS: See history and physical for details. A very pleasant gentleman with urethral stricture, voiding dysfunction, bilateral stone disease, which may also be related with underlying and multiple medical issues, seeing other doctors besides me, is admitted now as an emergency and is getting worked up. DESCRIPTION OF PROCEDURE: The procedure is as follows. Procedure is a 10-Indonesian cystoscope, the patient was brought to the operating table. Routine monitor was placed. Time-out was called to confirm the patient and positioning. The patient was prepped and draped in sterile fashion. We tried to introduce the cystoscope by urethra, unsuccessfully. There was a tremendous amount of stricture. We now tried the urethra but we were unable to. The cystoscope . We used what is the best and available to opt. and we started with 8-Indonesian and then went up to a 12 to 14 Indonesian, getting that much higher cysto we attempted, but we were limited by what was available. So I left the ureteral catheter in place and secured it very tightly with tape and . Overall, the patient tolerated the procedure well without complications. ADDENDUM: We are going to ask the emergence care to observe the patient closely and to keep a drainage bag so we can monitor the Is and Os, in few days we will bring the patient back for further plan. I will bring him back to the OR and dilate further so will get a Sanchez catheter. Mohamud Sanchez MD
--- NOTE | 2017-07-09 07:14 | HP ---
Urology emergency admission. REASON FOR ADMISSION: Hematuria, voiding dysfunction, urolithiasis, stone disease, intermittent pain. HISTORY: Brett is a very pleasant gentleman who has a history of Jabier disease. I had previously just briefly spoken with the patient and his mother who was looking for requesting medical help for his stone disease. He has been treated for multiple medical issues. Apparently, he is not able to get any doctor's offer locally. He lives up in [place] or [facility] but reached out to me and discussed options with me. We have been trying to figure out emergency room with difficulty going both to the bathroom and also to manage with stones and will bring the patient as an emergency admission. See the history and physical, consultations, medical notes, etc. PAST MEDICAL AND SURGICAL: As mentioned. Socially, his mother lives in [place], she actually called from the [employer]. I have had multiple conversations with his mother as well and the treating physician as well. MEDICATIONS: See the chart. ALLERGIES: SEE THE CHART. REVIEW OF SYSTEMS: Listed above. He has not really been seen by urologist of late. He knows he has stone disease of fairly heavy burden bilaterally, see the plan as listed above. PHYSICAL EXAMINATION: GENERAL: A well-nourished male in no apparent distress. VITAL SIGNS: Noted. He above 300 pounds, above 6 feet tall. DIAGNOSES: Hematuria, voiding dysfunction, urolithiasis, heavy stone burden bilateral disease. PLAN: We will bring the patient as an emergency. I discussed with them the various options, I am thinking of plan for a cysto, stenting, work one side at a time, percutaneous treatments would be appropriate, we actually had decide this. Again, risks, benefits, and treatments were discussed, long-term plans were discussed. My real truest recommendation is to go after an [facility]. For whatever reasons, the patient is not enthusiastic for multiple reasons and he is hoping that we are going to do as much as we can. I discussed the breakdown of plan is initially to have surgical stent and then will do ureteroscopy, laser, all would be percutaneous treatment, more likely based on this report, will do percutaneous report. Mohamud Sanchez MD
--- NOTE | 2017-07-09 07:34 | PN ---
DATE: 06/02/2017 See the previously dictated operative note for history and physical. The catheter without any obvious report to , but the catheter is no longer in place. We look carefully the I's and O's. The patient has been voiding well for the last couple of days. The catheter is not in place. Check the I's and O's before. Just an interesting note. No other changes in the past medical and surgical as well as no change in medical and review of systems, etc. DIAGNOSIS: A dislodged urethral catheter. ASSESSMENT AND PLAN: In summary, explained to the patient at length there is no real sometimes they get dislodged. Refer the original plan. The plan is to return the patient to the OR. We are initially going to get some drainage but need much more than that require more work. The plan is as follows. We will bring the patient back to the OR. We are going to do an IOU. Now, we will make arrangement for it. We also mentioned to the patient eventually either with distal stents, percutaneous treatment, as needed. , we will bring back the patient to OR. Mohamud Sanchez MD
--- NOTE | 2017-07-10 06:45 | OP ---
PROCEDURE DATE: 06/03/2017 UROLOGY NOTE PREOPERATIVE DIAGNOSES: Voiding dysfunction, urinary retention, bilateral stone disease, gross hematuria, heavy stone burden, and urethral stricture disease. POSTOPERATIVE DIAGNOSES: Voiding dysfunction, urinary retention, bilateral stone disease, gross hematuria, heavy stone burden, and urethral stricture disease. PROCEDURE: Just a cystoscopy, an internal optical urethrotomy, and insertion of Sanchez catheter, and a cystogram. COMPLICATIONS: There were no complications. We were not able to even address the stone. 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 to follow and that is why we were able to get in. Please see my progress note well based on the patient's body habitus and the general care. The patient is ready for the above procedure. He still requires personal care regarding his stone disease that we were not even addressing as to how Sanchez to drain the bladder, stabilize the patient, and then treat the in the future. I have explained this and outlined this to the patient in great detail as well. PROCEDURE: Cystoscopy, internal optical urethrotomy, cystogram, insertion of Sanchez catheter. COMPLICATIONS: There were no complications. BLOOD LOSS: Less than 10 mL. DESCRIPTION OF PROCEDURE: After obtaining informed consent, the patient was placed on the table. Routine monitor was placed. Time-out was called to confirm the patient and positioning. We went straight to the internal optical urethrotomy set up with a cold knife. We put a wire into the kidney under extensive fluoroscopic imaging. We got it over the wire, we felt anteriorly at the 12 o'clock, it is about , relatively thick. We were able to cut down well. Then, we were able to do this with away down the urethra. Once we did this, we put a Sanchez [place]-tip catheter over the wire, once we did this we confirmed our positioning in the bladder. No clear abnormalities within the bladder. We left the Manchester-tip. We did a cystogram, it confirmed our positioning. The patient tolerated the procedure well without complications. ADDENDUM: We will discuss the timing for a retrograde treatment of the stone, whether retrograde stents, whether percutaneous treatment but either way for now, the goal is to keep the Sanchez catheter as the patient has a very tight, tight stricture. The other day, we were not able to get a all the way through. See that dictated note. That is a separately dictated note. The patient tolerated the procedure well without complications. Mohamud Sanchez MD
== END 2017-06-04 22:07 | disposition home or self-care (01) | DRG 569 ==
LOC: C.ER 08:41 → C.9E 12:29 → C.6T 13:31
PROVIDERS: ADMIT Internal Medicine Pulmonary Disease; ATTEND Internal Medicine Pulmonary Disease
PROC: 0TJB8ZZ Inspection of Bladder, Via Natural or Artificial Opening Endoscopic (ICD-10-PCS; 2017-05-29)
PROC: 0T7D8DZ Dilation of Urethra with Intraluminal Device, Via Natural or Artificial Opening Endoscopic (ICD-10-PCS; principal; 2017-06-03 10:15)
DX: N35.9 Urethral stricture, unspecified (principal); L89.153 Pressure ulcer of sacral region, stage 3; N39.0 Urinary tract infection, site not specified; N18.9 Chronic kidney disease, unspecified; N20.0 Calculus of kidney; E83.01 Wilson's disease; K29.70 Gastritis, unspecified, without bleeding; R31.0 Gross hematuria; Z87.442 Personal history of urinary calculi; Z80.1 Family history of malignant neoplasm of trachea, bronchus and lung; Z74.01 Bed confinement status

== ENCOUNTER 2017-07-24 10:38 | Inpatient (IN) | payer OTHER ==
[2017-07-22 12:16] VITALS: BMI 43.8
--- NOTE | 2017-07-24 22:43 | CP.PCM.CON ---
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[facility]) - HEENT Hx HEENT Problems: Yes (GLASSES) - RENAL Hx Chronic Kidney Disease: Yes Hx Kidney Stones: Yes - ENDOCRINE/METABOLIC Hx Endocrine Disorders: Yes Other/Comment: Cherie's Disease COPPER METABOLISM PROBLEM - HEMATOLOGICAL/ONCOLOGICAL Hx Blood Disorders: No - INTEGUMENTARY Hx Dermatological Problems: Yes (BEDBOUND HAS SKIN IRRITATIONS) - MUSCULOSKELETAL/RHEUMATOLOGICAL Hx Musculoskeletal Disorders: Yes Hx Back Pain: Yes Hx Falls: Yes Other/Comment: BED BOUND - GASTROINTESTINAL Hx Gastrointestinal Disorders: Yes Hx Gastritis: Yes Hx Ulcer: Yes - GENITOURINARY/GYNECOLOGICAL Hx Genitourinary Disorders: Yes Hx Hematuria: Yes - PSYCHIATRIC Hx Psychophysiologic Disorder: No Hx Substance Use: No - SURGICAL HISTORY Hx Surgeries: Yes Hx Orthopedic Surgery: Yes (L4 L5 ? PROCEDURE) Hx Vascular Surgery: Yes (IVC FILTER RT ARM) Other/Comment: back surgery 8 years ago. feeding tube - removed 4 years ago. right arm IVC filter placement CYSTO STENT - ANESTHESIA Hx Anesthesia: Yes Hx Anesthesia Reactions: No Hx Malignant Hyperthermia: No Has any member of the family had a problem w/ anesthesia?: No (UNKNOWN) Meds Allergies/Adverse Reactions: Allergies Allergy/AdvReac Type Severity Reaction Status Date / Time No Known Allergies Allergy Verified 05/29/17 08:51 - Medications Medications: Current Medications Famotidine (Pepcid) 40 mg PO DAILY [facility] Tramadol HCl (Ultram) 50 mg PO Q6H PRN PRN Reason: Pain, moderate (4-7) Last Admin: 07/24/17 19:43 Dose: 50 mg Results - Vital Signs Recent Vital Signs: Last Vital Signs Temp 97.4 F L 07/24/17 17:25 Pulse 92 H 07/24/17 17:25 Resp 20 07/24/17 17:25 BP 139/85 07/24/17 17:25 Pulse Ox 96 07/24/17 17:25
[2017-07-25 07:12] LABS: BASO # 0.1 K/uL (0.0-0.2); BASO % 1.4 % (0.0-2.0); EOS # 0.6 K/uL (0.0-0.7); EOS % 6.3 % (0.0-4.0); HEMOGLOBIN 13.5 g/dL (12.0-18.0); LYMPH # 2.1 K/uL (1.0-4.3); LYMPH % 22.5 % (20.0-40.0); MEAN CELL VOLUME 86.7 fL (80.0-94.0); MEAN CORPUSCULAR HEMOGLOBIN 29.3 pg (27.0-31.0); MEAN CORPUSCULAR HGB CONC 33.8 g/dL (33.0-37.0); MONO # 0.8 K/uL (0.0-0.8); MONO % 7.9 % (0.0-10.0); NEUT # 5.9 K/uL (1.8-7.0); NEUT % 61.9 % (50.0-75.0); NRBC % 0.1 % (0.0-2.0); RBC 4.62 Mil/uL (4.40-5.90); RED CELL DISTRIBUTION WIDTH 15.1 % (11.5-14.5); WHITE BLOOD COUNT 9.5 K/uL (4.8-10.8)
[2017-07-25 07:19] LABS: INR 1.4; PROTHROMBIN TIME 14.9 SECONDS (9.7-12.2)
[2017-07-25 07:28] LABS: ALB/GLOB RATIO 0.8 (1.0-2.1); ALBUMIN 3.4 g/dL (3.5-5.0); AST/SGOT 21 U/L (17-59); BLOOD UREA NITROGEN 10 mg/dL (9-20); CALCIUM 8.7 mg/dl (8.6-10.4); GFR AFRICAN-AMERICAN > 60; GFR NON-AFRICAN AMERICAN > 60
[2017-07-25 07:50] LABS: ALT/SGPT < 6 U/L (21-72)
[2017-07-25] MEDS ORDERED: Potassium Chloride 20 mEq ER Tab PO ONE (09:37)
--- NOTE | 2017-07-25 09:48 | CT ---
PROCEDURE: CT Abdomen and Pelvis without intravenous contrast HISTORY: Urolithiasis COMPARISON: 05/29/2017. TECHNIQUE: CT scan of the abdomen and pelvis was performed without administration of intravenous contrast. Oral contrast was not administered. Coronal and sagittal reformatted images were obtained. Radiation dose: Total exam DLP = 1472.80 mGy-cm. This CT exam was performed using one or more of the following dose reduction techniques: Automated exposure control, adjustment of the mA and/or kV according to patient size, and/or use of iterative reconstruction technique. FINDINGS: LOWER THORAX: There is minimal dependent atelectasis in the lung bases. LIVER: The liver is enlarged and measures 27 cm. There is diffuse fatty infiltration. No ductal dilatation GALLBLADDER AND BILE DUCTS: The gallbladder is contracted. An apparent linear hyperdensity in the neck of the gallbladder may represent a small gallstone. PANCREAS: Normal in size. No gross lesion or ductal dilatation. SPLEEN: The spleen is enlarged and measures 15 cm. ADRENALS: No discrete nodule. KIDNEYS AND URETERS: Both kidneys are normal in size. There is redemonstration of multiple nonobstructing stones in the lower pole of the right kidney. There is interval placement of a right ureteral stent which appears to terminate in the distal ureteral proximal to the UV junction. There is mild fullness in the right collecting system. There are larger multiple nonobstructing stones in the left kidney and left renal pelvis, the largest in the renal pelvis measures 2.0 cm. VASCULATURE: An infrarenal IVC filter remains in place. No aortic aneurysm. BOWEL: The small bowel loops are normal in caliber. The colon is decompressed. No bowel dilatation or obstruction. APPENDIX: Normal appendix. PERITONEUM: No free fluid. No free air. LYMPH NODES: No enlarged lymph nodes. BLADDER: Indwelling Sanchez catheter with subsequent decompression. REPRODUCTIVE: Unremarkable. BONES: No acute fracture. There is redemonstration of gross deformity in the right hip with extensive heterotopic ossification medial and lateral to the trochanter. OTHER FINDINGS: There is a large decubitus ulcer. No definite evidence for osteomyelitis. IMPRESSION: 1. Interval placement of right ureteral stent which appears to terminate in the distal ureteral above the UV junction. Mild fullness in the right collecting system. 2. Extensive bilateral nephrolithiasis which larger stones in the left kidney, the largest in the renal pelvis measures 2 cm. 3. Large decubitus ulcer. A preliminary report was provided by [facility] services.
[2017-07-25 10:16] LABS: HDL CHOLESTEROL 19 mg/dL (30-70)
[2017-07-25 10:27] LABS: LDL CHOLESTEROL 133 mg/dL (0-129)
[2017-07-25] MEDS ORDERED: PENICILLAMINE 250 MG PO SCH (12:00)
--- NOTE | 2017-07-25 13:05 | CP.PCM.PN ---
Subjective - Date & Time of Evaluation Date of Evaluation: 07/25/17 Time of Evaluation: 13:00 - Subjective Subjective: Progress note. Attending: Dr. Glaser Pt seen and examined at bedside. No acute distress. No events overnight. No fevers, chills, vomiting, diarrhea. No complaints currently. Objective - Vital Signs/Intake and Output Vital Signs (last 24 hours): Temp Pulse Resp BP Pulse Ox 97.8 F 88 20 128/82 95 07/25/17 08:00 07/25/17 08:00 07/25/17 08:00 07/25/17 08:00 07/25/17 08:00 Intake and Output: 07/25/17 07/25/17 06:59 18:59 Output Total 1150 Balance -1150 - Medications Medications: Current Medications Famotidine (Pepcid) 40 mg PO DAILY [facility] Last Admin: 07/25/17 10:17 Dose: 40 mg Home Med (Patient's Own Medication) 1 tab PO Q6 [facility] Tramadol HCl (Ultram) 50 mg PO Q6H PRN PRN Reason: Pain, moderate (4-7) Last Admin: 07/25/17 10:19 Dose: 50 mg - Labs Labs: 07/25/17 06:52 07/25/17 06:52 PT 14.9 SECONDS (9.7-12.2) H 07/25/17 06:52 INR 1.4 07/25/17 06:52 - Constitutional Appears: Non-toxic, No Acute Distress - Head Exam Head Exam: ATRAUMATIC, NORMAL INSPECTION, NORMOCEPHALIC - Eye Exam Eye Exam: EOMI - ENT Exam ENT Exam: Mucous Membranes Moist - Neck Exam Neck Exam: Full ROM, Normal Inspection. absent: Lymphadenopathy - Respiratory Exam Respiratory Exam: NORMAL BREATHING PATTERN. absent: Respiratory Distress - Cardiovascular Exam Cardiovascular Exam: +S1, +S2 - GI/Abdominal Exam GI & Abdominal Exam: Soft, Normal Bowel Sounds. absent: Tenderness - Extremities Exam Extremities Exam: Full ROM, Normal Inspection - Back Exam Back Exam: NORMAL INSPECTION - Neurological Exam Neurological Exam: Alert, Awake, Oriented x3 - Psychiatric Exam Psychiatric exam: Flat Affect - Skin Skin Exam: Abrasion Assessment and Plan - Assessment and Plan (Free Text) Assessment: This is a 42 yo male with 1. Hematuria -urology consult. Dr. Sanchez. recs appreciated -will get cardio Dr. Urbano for medical clearance. 2. 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 GI/DVT ppx -scds -protonix daily discussed with Dr. Glaser
[2017-07-25] MEDS: PENICILLAMINE 250 MG PO SCH (17:54)
--- NOTE | 2017-07-25 19:32 | CP.PCM.PN ---
Subjective - Date & Time of Evaluation Date of Evaluation: 07/25/17 Time of Evaluation: 08:40 - Subjective Subjective: clinically same Objective - Vital Signs/Intake and Output Vital Signs (last 24 hours): Temp Pulse Resp BP Pulse Ox 98.5 F 88 20 117/77 95 07/25/17 15:47 07/25/17 15:47 07/25/17 15:47 07/25/17 15:47 07/25/17 15:47 Intake and Output: 07/25/17 07/26/17 18:59 06:59 Intake Total 730 Output Total 500 Balance 230 - Medications Medications: Current Medications Famotidine (Pepcid) [address] [facility] Last Admin: 07/25/17 10:17 Dose: 40 mg Home Med (Patient's Own Medication) 1 tab PO Q6 [facility] Last Admin: 07/25/17 17:54 Dose: 1 tab Tramadol HCl (Ultram) 50 mg PO Q6H PRN PRN Reason: Pain, moderate (4-7) Last Admin: 07/25/17 17:56 Dose: 50 mg - Labs Labs: 07/25/17 06:52 07/25/17 06:52 PT 14.9 SECONDS (9.7-12.2) H 07/25/17 06:52 INR 1.4 07/25/17 06:52 - Constitutional Appears: Well - Head Exam Head Exam: ATRAUMATIC, NORMAL INSPECTION, NORMOCEPHALIC - Eye Exam Eye Exam: EOMI, Normal appearance, PERRL Pupil Exam: NORMAL ACCOMODATION, PERRL - ENT Exam ENT Exam: Mucous Membranes Moist, Normal Exam - Neck Exam Neck Exam: Full ROM, Normal Inspection. absent: Lymphadenopathy - Respiratory Exam Respiratory Exam: Decreased Breath Sounds - Cardiovascular Exam Cardiovascular Exam: REGULAR RHYTHM, +S1, +S2 - GI/Abdominal Exam GI & Abdominal Exam: Soft, Diminished Bowel Sounds - Rectal Exam Rectal Exam: Deferred
[2017-07-25] MEDS ORDERED: Potassium Chloride 20 mEq ER Tab PO STA (22:07)
[2017-07-26] MEDS: PENICILLAMINE 250 MG PO SCH ×4 (00:16→17:59)
[2017-07-26 08:51] LABS: BASO # 0.1 K/uL (0.0-0.2); BASO % 1.3 % (0.0-2.0); EOS # 0.5 K/uL (0.0-0.7); HEMOGLOBIN 12.9 g/dL (12.0-18.0); LYMPH # 2.2 K/uL (1.0-4.3); MEAN CORPUSCULAR HEMOGLOBIN 28.7 pg (27.0-31.0); MEAN CORPUSCULAR HGB CONC 32.9 g/dL (33.0-37.0); MEAN PLATELET VOLUME 9.2 fL (7.2-11.7); MONO # 0.8 K/uL (0.0-0.8); MONO % 8.4 % (0.0-10.0); NEUT # 5.4 K/uL (1.8-7.0); NEUT % 60.3 % (50.0-75.0); NRBC % 0.2 % (0.0-2.0); RBC 4.51 Mil/uL (4.40-5.90)
[2017-07-26 09:29] LABS: ALB/GLOB RATIO 0.8 (1.0-2.1); ALBUMIN 3.3 g/dL (3.5-5.0); AST/SGOT 25 U/L (17-59); BLOOD UREA NITROGEN 9 mg/dL (9-20); CALCIUM 8.7 mg/dl (8.6-10.4); GFR AFRICAN-AMERICAN > 60; GFR NON-AFRICAN AMERICAN > 60
[2017-07-26 10:19] LABS: ALT/SGPT 15 U/L (21-72)
--- NOTE | 2017-07-26 12:17 | CARD ---
APPROVED REPORT EKG Measurement Heart [id number] TX [id number] [id number] <Conclusion> Normal sinus rhythm Anterolateral infarct, age undetermined Abnormal ECG
--- NOTE | 2017-07-26 13:02 | CP.PCM.CON ---
History of Present Illness - History of Present Illness History of Present Illness: 42 y/o presented with hematuria: Urology on board and we are called for cardiac clearance. Medical Problems: 1. Hematuria 2. Hx of obesity 3. hx of Cherie's disease Cardiac HX; No cardiovascular procedures reported Non-smoker Non-diabetic + Mixed mild hyperlipidemia + Obesity Overall patient is obese and mildly active due to secondary effects from cherie' s disease. He participates in PT. There is no report of CP, CHF sx's, palpitation, syncope, dizziness. 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) - HEENT Hx HEENT Problems: Yes (GLASSES) - RENAL Hx Chronic Kidney Disease: Yes Hx Kidney Stones: Yes - ENDOCRINE/METABOLIC Hx Endocrine Disorders: Yes Other/Comment: Cherie's Disease COPPER METABOLISM PROBLEM - HEMATOLOGICAL/ONCOLOGICAL Hx Blood Disorders: No - INTEGUMENTARY Hx Dermatological Problems: Yes (BEDBOUND HAS SKIN IRRITATIONS) - MUSCULOSKELETAL/RHEUMATOLOGICAL Hx Musculoskeletal Disorders: Yes Hx Back Pain: Yes Hx Falls: Yes Other/Comment: BED BOUND - GASTROINTESTINAL Hx Gastrointestinal Disorders: Yes Hx Gastritis: Yes Hx Ulcer: Yes - GENITOURINARY/GYNECOLOGICAL Hx Genitourinary Disorders: Yes Hx Hematuria: Yes - PSYCHIATRIC Hx Psychophysiologic Disorder: No Hx Substance Use: No - SURGICAL HISTORY Hx Surgeries: Yes Hx Orthopedic Surgery: Yes (L4 L5 ? PROCEDURE) Hx Vascular Surgery: Yes (IVC FILTER RT ARM) Other/Comment: back surgery 8 years ago. feeding tube - removed 4 years ago. right arm IVC filter placement CYSTO STENT - ANESTHESIA Hx Anesthesia: Yes Hx Anesthesia Reactions: No Hx Malignant Hyperthermia: No Has any member of the family had a problem w/ anesthesia?: No (UNKNOWN) Meds Allergies/Adverse Reactions: Allergies Allergy/AdvReac Type Severity Reaction Status Date / Time No Known Allergies Allergy Verified 05/29/17 08:51 - Medications Medications: Current Medications Famotidine (Pepcid) 40 mg PO DAILY [facility] Last Admin: 07/26/17 10:28 Dose: 40 mg Home Med (Patient's Own Medication) 1 tab PO Q6 [facility] Last Admin: 07/26/17 06:02 Dose: 1 tab Tramadol HCl (Ultram) 50 mg PO Q6H PRN PRN Reason: Pain, moderate (4-7) Last Admin: 07/26/17 10:33 Dose: 50 mg Physical Exam - Constitutional Appears: No Acute Distress - Head Exam Head Exam: ATRAUMATIC, NORMAL INSPECTION, NORMOCEPHALIC - Eye Exam Eye Exam: EOMI, Normal appearance, PERRL - ENT Exam ENT Exam: Mucous Membranes Moist, Normal Oropharynx. absent: Normal Exam (poor dentition) - Neck Exam Neck exam: Positive for: Full Rom. Negative for: Tenderness - Respiratory Exam Respiratory Exam: Clear to Auscultation Bilateral, NORMAL BREATHING PATTERN. absent: Rhonchi, Wheezes - Cardiovascular Exam Cardiovascular Exam: REGULAR RHYTHM, +S1, +S2. absent: Gallop, Rubs, +S4, Systolic Murmur - GI/Abdominal Exam GI & Abdominal Exam: Normal Bowel Sounds, Soft. absent: Tenderness - Extremities Exam Extremities exam: Positive for: normal inspection, pedal pulses present. Negative for: calf tenderness, pedal edema - Neurological Exam Neurological exam: Alert, Oriented x3 - Psychiatric Exam Psychiatric exam: Normal Affect, Normal Mood - Skin Skin Exam: Normal Color, Warm Results - Vital Signs Recent Vital Signs: Last Vital Signs Temp 97.9 F 07/26/17 07:00 Pulse 80 07/26/17 07:00 Resp 20 07/26/17 07:00 BP 125/74 07/26/17 07:00 Pulse Ox 96 07/26/17 07:00 - Labs Result Diagrams: 07/26/17 08:31 07/26/17 08:31 Labs: Laboratory Results - last 24 hr 07/26/17 07/26/17 08:31 08:31 WBC 9.0 RBC 4.51 Hgb 12.9 Hct 39.2 MCV 87.0 MCH 28.7 MCHC 32.9 L RDW 15.0 H Plt Count 255 MPV 9.2 Neut % (Auto) 60.3 Lymph % (Auto) 24.0 [place] % (Auto) 8.4 Eos % (Auto) 6.0 H Baso % (Auto) 1.3 Neut # (Auto) 5.4 Lymph # (Auto) 2.2 [place] # (Auto) 0.8 Eos # (Auto) 0.5 Baso # (Auto) 0.1 Sodium 141 Potassium 3.3 L Chloride 106 Carbon Dioxide 21 L Anion Gap 17 BUN 9 Creatinine 0.9 Est GFR ( Amer) > 60 Est GFR (Non-Af Amer) > 60 Random Glucose 108 Calcium 8.7 Total Bilirubin 0.5 AST 25 ALT 15 L D Alkaline Phosphatase 63 Total Protein 7.6 Albumin 3.3 L Globulin 4.3 H Albumin/Globulin Ratio 0.8 L - EKG Data EKG Interpreted by: Myself EKG shows normal: Sinus rhythm Rate: Normal Assessment & Plan - Assessment and Plan (Free Text) Assessment: 42 y/o with hx of nephrolithiasis, prior uretral stent and hematuria: pending urology work-up > EKG : NSR, no acute ischemic changes > EXAM: No pathologic murmurs or signs of CHF or PAD > Vitals: BP and HR controlled without RX > labs: Mild lipids, low K+, normal creat and BDLN sugars. Based on the absence of any sx's or signs of significant CAD or CHF and absencence of any volume overload....Patient is acceptable risk to proceed with urology procedure from a cardiac standpoint. Given obesity, suggest pulmonary supportive care, DVT prophylaxis. Correct lytes: hypokalemia Call if furter questions.
--- NOTE | 2017-07-26 13:34 | CP.PCM.PN ---
Subjective - Date & Time of Evaluation Date of Evaluation: 07/26/17 Time of Evaluation: 08:40 - Subjective Subjective: clinically same Objective - Vital Signs/Intake and Output Vital Signs (last 24 hours): Temp Pulse Resp BP Pulse Ox 97.9 F 80 20 125/74 96 07/26/17 07:00 07/26/17 07:00 07/26/17 07:00 07/26/17 07:00 07/26/17 07:00 Intake and Output: 07/26/17 07/26/17 06:59 18:59 Intake Total 240 Output Total 1175 Balance -935 - Medications Medications: Current Medications Famotidine (Pepcid) 40 mg PO DAILY [facility] Last Admin: 07/26/17 10:28 Dose: 40 mg Home Med (Patient's Own Medication) 1 tab PO Q6 [facility] Last Admin: 07/26/17 06:02 Dose: 1 tab Tramadol HCl (Ultram) 50 mg PO Q6H PRN PRN Reason: Pain, moderate (4-7) Last Admin: 07/26/17 10:33 Dose: 50 mg - Labs Labs: 07/26/17 08:31 07/26/17 08:31 PT 14.9 SECONDS (9.7-12.2) H 07/25/17 06:52 INR 1.4 07/25/17 06:52 - Constitutional Appears: Well - Head Exam Head Exam: ATRAUMATIC, NORMAL INSPECTION, NORMOCEPHALIC - Eye Exam Eye Exam: EOMI, Normal appearance, PERRL Pupil Exam: NORMAL ACCOMODATION, PERRL - ENT Exam ENT Exam: Mucous Membranes Moist, Normal Exam - Neck Exam Neck Exam: Full ROM, Normal Inspection. absent: Lymphadenopathy - Respiratory Exam Respiratory Exam: Decreased Breath Sounds - Cardiovascular Exam Cardiovascular Exam: REGULAR RHYTHM, +S1, +S2 - GI/Abdominal Exam GI & Abdominal Exam: Soft, Diminished Bowel Sounds - Rectal Exam Rectal Exam: Deferred
[2017-07-26] MEDS ORDERED: Potassium Chloride 20 mEq ER Tab PO ONE (16:00)
[2017-07-26] MEDS ORDERED: Potassium Chloride 10 mEq ER Tab PO STA (19:36)
[2017-07-27] MEDS: PENICILLAMINE 250 MG PO SCH ×4 (00:33→17:35)
--- NOTE | 2017-07-27 16:07 | CP.PCM.PN ---
Subjective - Date & Time of Evaluation Date of Evaluation: 07/27/17 Time of Evaluation: 09:00 - Subjective Subjective: clinically same Objective - Vital Signs/Intake and Output Vital Signs (last 24 hours): Temp Pulse Resp BP Pulse Ox 98.0 F 88 20 130/77 96 07/27/17 08:30 07/27/17 08:30 07/27/17 08:30 07/27/17 08:30 07/27/17 08:30 Intake and Output: 07/27/17 07/27/17 06:59 18:59 Output Total 1100 Balance -1100 - Medications Medications: Current Medications Famotidine (Pepcid) 40 mg PO DAILY [facility] Last Admin: 07/27/17 10:34 Dose: 40 mg Home Med (Patient's Own Medication) 1 tab PO Q6 [facility] Last Admin: 07/27/17 12:45 Dose: 1 tab Tramadol HCl (Ultram) 50 mg PO Q6H PRN PRN Reason: Pain, moderate (4-7) Last Admin: 07/27/17 06:53 Dose: 50 mg - Labs Labs: 07/26/17 08:31 07/26/17 08:31 PT 14.9 SECONDS (9.7-12.2) H 07/25/17 06:52 INR 1.4 07/25/17 06:52 - Constitutional Appears: Well - Head Exam Head Exam: ATRAUMATIC, NORMAL INSPECTION, NORMOCEPHALIC - Eye Exam Eye Exam: EOMI, Normal appearance, PERRL Pupil Exam: NORMAL ACCOMODATION, PERRL - ENT Exam ENT Exam: Mucous Membranes Moist, Normal Exam - Neck Exam Neck Exam: Full ROM, Normal Inspection. absent: Lymphadenopathy - Respiratory Exam Respiratory Exam: Decreased Breath Sounds - Cardiovascular Exam Cardiovascular Exam: REGULAR RHYTHM, +S1, +S2 - GI/Abdominal Exam GI & Abdominal Exam: Soft, Diminished Bowel Sounds - Rectal Exam Rectal Exam: Deferred
[2017-07-28] MEDS: PENICILLAMINE 250 MG PO SCH ×4 (00:35→17:06)
--- NOTE | 2017-07-28 07:41 | HP ---
UROLOGY ADMISSION HISTORY AND PHYSICAL REASON FOR ADMISSION: For treatment of kidney stones. HISTORY OF PRESENT ILLNESS: Mr. Boss is a very pleasant gentleman who is 42 years old. He had multiple medial issues, and specifically, he has Jabier's disease as well and multiple other issues. He has obesity, he is bed bound. He is not walking. This follows a couple of years back already. From a urology standpoint, he has kidney stones. He has heavy stone burden, in fact to the point, that I have recommended to the patient to have treatment at [facility]. He is having trouble finding any doctor. Therefore after discussing options, we admitted the patient now. He came in for the same day surgery, but the anesthesiologists are not clearing him. He does have a baseline medical doctor, but he did not work in this institution. Since the initial time when I met him, I actually found the urethral stricture. See the previously dictated notes. I found the urethral stricture on the patient, and at that time what we did for the patient was we had recommended further treatment. We left the Sanchez catheter, but he asked for it to be taken out. So subsequently, we did take it out, but after we took it out, he had stricture recur. Once this happened, the patient now says that he is going to the bathroom better, but it was difficult to evaluate. He is coming in today. He is coming in for a cystoscopy and also for a possible IOU and also possible treatment of stones, stent insertion, urethrostomy . Actually, the patient had a stent inserted by another doctor in [place] at [facility], he told me. But now, he is being admitted by me today because meanwhile he still has the stent and has had not good followup. Today, the anesthesiologist wanted to get medical clearance, so we are admitting him to the hospital. PAST MEDICAL AND SURGICAL HISTORY: As listed on the chart, otherwise, unremarkable. See the plan as listed above. We are going to get internal medicine consult here. REVIEW OF SYSTEMS: As listed above. MEDICATIONS: See chart. SOCIAL HISTORY: mentioned, I spoke with his mother several times, he again is bed bound. He apparently lives at home and has somebody care for him. PHYSICAL EXAMINATION: VITAL SIGNS: Body habitus as noted. His weight, height all noted on the chart. GENERAL: He is in no apparent distress currently. HEENT: Normocephalic and atraumatic. LUNGS: Clear. HEART: Normal S1 and S2. ABDOMEN: Overall soft. Nontender. GENITOURINARY: He has a normal phallus discharge, meatus looks relatively normal. No testicular mass is appreciated. RECTAL: Previous rectal exam within normal limits. DIAGNOSES: Heavy stone burden, urolithiasis, hematuria, urethral stricture disease, voiding dysfunction, urinary retention, and bilateral heavy stone disease. PLAN: The plan is as follows. We discussed the options. I offered the patient to go home, and go and get medical clearance, but it is very difficult for him. He does not get out of bed well. He is bed bound. So at this point, it is mostly social oriented ____ gentleman with bilateral heavy stone disease who has voiding dysfunction. He has a stent hospital. I have spoken to the patient several times since his last admission another doctor. The doctor told him that he should find another urologist apparently. I did not speak with that doctor directly, but I did speak to the patient very carefully. In my recommendation, it is actually that he consider going to an academic place. From a urology standpoint, he has very heavy stone burden, will take multiple procedures, but the issue is now he has a stent in place. In addition, he had urethral stricture disease. Although, he says he is voiding better than previously, I am concerned that it would recur. So the plan is as follows: 1. We are going to admit him to my service. 2. We are going to try to get him ready as rapidly as possible. 3. We are going to obtain a medical consult in this hospital. 4. Perhaps, we will also reach out his other doctor as appropriate and see what other test he has been done. 5. Jabier's disease. We will have to see the current status and see if there is any appropriate GI consult as required. Further plans will follow, and then we will try to treat the stones as quickly as best as possible. Mohamud Laura, MD
[2017-07-28 08:17] LABS: BASO # 0.1 K/uL (0.0-0.2); BASO % 1.2 % (0.0-2.0); EOS # 0.6 K/uL (0.0-0.7); EOS % 6.1 % (0.0-4.0); HEMOGLOBIN 13.1 g/dL (12.0-18.0); LYMPH # 1.4 K/uL (1.0-4.3); LYMPH % 15.3 % (20.0-40.0); MEAN CELL VOLUME 87.2 fL (80.0-94.0); MEAN CORPUSCULAR HEMOGLOBIN 28.3 pg (27.0-31.0); MEAN CORPUSCULAR HGB CONC 32.5 g/dL (33.0-37.0); MEAN PLATELET VOLUME 9.2 fL (7.2-11.7); MONO # 0.7 K/uL (0.0-0.8); MONO % 7.8 % (0.0-10.0); NEUT # 6.6 K/uL (1.8-7.0); NEUT % 69.6 % (50.0-75.0); NRBC % 0.2 % (0.0-2.0); RBC 4.63 Mil/uL (4.40-5.90); RED CELL DISTRIBUTION WIDTH 14.8 % (11.5-14.5); WHITE BLOOD COUNT 9.4 K/uL (4.8-10.8)
[2017-07-28 08:42] LABS: ALB/GLOB RATIO 0.7 (1.0-2.1); ALBUMIN 3.2 g/dL (3.5-5.0); ALT/SGPT 15 U/L (21-72); AST/SGOT 22 U/L (17-59); BLOOD UREA NITROGEN 13 mg/dL (9-20); CALCIUM 8.7 mg/dl (8.6-10.4); GFR AFRICAN-AMERICAN > 60; GFR NON-AFRICAN AMERICAN > 60
--- NOTE | 2017-07-28 18:59 | CP.PCM.PN ---
Subjective - Date & Time of Evaluation Date of Evaluation: 07/28/17 Time of Evaluation: 08:20 - Subjective Subjective: clinically same Objective - Vital Signs/Intake and Output Vital Signs (last 24 hours): Temp Pulse Resp BP Pulse Ox 98.2 F 81 20 133/87 97 07/28/17 15:03 07/28/17 15:03 07/28/17 15:03 07/28/17 15:03 07/28/17 15:03 Intake and Output: 07/28/17 07/28/17 06:59 18:59 Intake Total 800 Output Total 2250 Balance -1450 - Medications Medications: Current Medications Famotidine (Pepcid) 40 mg PO DAILY [facility] Last Admin: 07/28/17 13:11 Dose: Not Given Home Med (Patient's Own Medication) 1 tab PO Q6 [facility] Last Admin: 07/28/17 17:06 Dose: 1 tab Tramadol HCl (Ultram) 50 mg PO Q6H PRN PRN Reason: Pain, moderate (4-7) Last Admin: 07/28/17 16:59 Dose: 50 mg - Labs Labs: 07/28/17 08:02 07/28/17 08:02 PT 14.9 SECONDS (9.7-12.2) H 07/25/17 06:52 INR 1.4 07/25/17 06:52 - Constitutional Appears: Well - Head Exam Head Exam: ATRAUMATIC, NORMAL INSPECTION, NORMOCEPHALIC - Eye Exam Eye Exam: EOMI, Normal appearance, PERRL Pupil Exam: NORMAL ACCOMODATION, PERRL - ENT Exam ENT Exam: Mucous Membranes Moist, Normal Exam - Neck Exam Neck Exam: Full ROM, Normal Inspection. absent: Lymphadenopathy - Respiratory Exam Respiratory Exam: Decreased Breath Sounds - Cardiovascular Exam Cardiovascular Exam: REGULAR RHYTHM, +S1, +S2 - GI/Abdominal Exam GI & Abdominal Exam: Soft, Diminished Bowel Sounds - Rectal Exam Rectal Exam: Deferred Assessment and Plan - Assessment and Plan (Free Text) Plan: For the surgery today patient is cleared by cardiology Followed by Dr. Astorga Medicine as ordered Potassium supplementation DVT GI and DVT prophylaxis
[2017-07-28] MEDS ORDERED: Potassium Chloride 20 mEq ER Tab PO STA (22:07)
--- NOTE | 2017-07-28 23:16 | PCM.URO ---
Urology Progress Note - Objective Lab Results Last 24 Hours: Laboratory Results - last 24 hr 07/28/17 07/28/17 08:02 08:02 WBC 9.4 RBC 4.63 Hgb 13.1 Hct 40.3 MCV 87.2 MCH 28.3 MCHC 32.5 L RDW 14.8 H Plt Count 231 MPV 9.2 Neut % (Auto) 69.6 Lymph % (Auto) 15.3 L [place] % (Auto) 7.8 Eos % (Auto) 6.1 H Baso % (Auto) 1.2 Neut # (Auto) 6.6 Lymph # (Auto) 1.4 [place] # (Auto) 0.7 Eos # (Auto) 0.6 Baso # (Auto) 0.1 Sodium 139 Potassium 3.5 L Chloride 105 Carbon Dioxide 22 Anion Gap 15 BUN 13 Creatinine 1.0 Est GFR ( Amer) > 60 Est GFR (Non-Af Amer) > 60 Random Glucose 131 H Calcium 8.7 Total Bilirubin 0.8 AST 22 ALT 15 L Alkaline Phosphatase 63 Total Protein 7.5 Albumin 3.2 L Globulin 4.4 H Albumin/Globulin Ratio 0.7 L Intake & Output: Intake & Output 07/28/17 07/28/17 07/29/17 06:59 18:59 06:59 Intake Total 800 450 Output Total 2250 400 Balance -1450 50 Intake: Oral 800 450 Output: Urine 2250 400 Urethral (Sanchez) 2250 400 Other: # Bowel Movements 0 Vital Signs: Vital Signs - 24 hr 07/27/17 07/28/17 07/28/17 23:25 07:20 15:03 Temperature 98.1 F 97.7 F 98.2 F Pulse Rate 81 81 81 Respiratory 20 20 20 Rate Blood Pressure 123/76 129/82 133/87 O2 Sat by Pulse 95 95 97 Oximetry
[2017-07-29] MEDS: PENICILLAMINE 250 MG PO SCH ×4 (00:08→17:53)
--- NOTE | 2017-07-29 07:11 | CP.PCM.PN ---
Subjective - Date & Time of Evaluation Date of Evaluation: 07/29/17 Time of Evaluation: 09:00 - Subjective Subjective: clinically same Objective - Vital Signs/Intake and Output Vital Signs (last 24 hours): Temp Pulse Resp BP Pulse Ox 98.6 F 101 H 20 119/74 95 07/28/17 23:30 07/28/17 23:30 07/28/17 23:30 07/28/17 23:30 07/28/17 23:30 Intake and Output: 07/29/17 07/29/17 06:59 18:59 Intake Total 450 Output Total 1950 Balance -1500 - Medications Medications: Current Medications Famotidine (Pepcid) 40 mg PO DAILY [facility] Last Admin: 07/28/17 13:11 Dose: Not Given Home Med (Patient's Own Medication) 1 tab PO Q6 [facility] Last Admin: 07/29/17 06:23 Dose: Not Given Tramadol HCl (Ultram) 50 mg PO Q6H PRN PRN Reason: Pain, moderate (4-7) Last Admin: 07/29/17 00:07 Dose: 50 mg - Labs Labs: 07/28/17 08:02 07/28/17 08:02 PT 14.9 SECONDS (9.7-12.2) H 07/25/17 06:52 INR 1.4 07/25/17 06:52 - Constitutional Appears: Well - Head Exam Head Exam: ATRAUMATIC, NORMAL INSPECTION, NORMOCEPHALIC - Eye Exam Eye Exam: EOMI, Normal appearance, PERRL Pupil Exam: NORMAL ACCOMODATION, PERRL - ENT Exam ENT Exam: Mucous Membranes Moist, Normal Exam - Neck Exam Neck Exam: Full ROM, Normal Inspection. absent: Lymphadenopathy - Respiratory Exam Respiratory Exam: Decreased Breath Sounds - Cardiovascular Exam Cardiovascular Exam: REGULAR RHYTHM, +S1, +S2 - GI/Abdominal Exam GI & Abdominal Exam: Soft, Diminished Bowel Sounds - Rectal Exam Rectal Exam: Deferred Assessment and Plan - Assessment and Plan (Free Text) Plan: Continue penicillamine Continue Ultram for pain Status post cardiology By urology workup Discharge only if cleared by the urology This is a 42 yo male with 1. Hematuria -urology consult. Dr. Sanchez. recs appreciated -will get cardio Dr. Urbano for medical clearance. -was deemed accepable risk for sx -pt going for procedure with Dr. Sanchez 2. 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 GI/DVT ppx -scds -protonix daily
--- NOTE | 2017-07-29 11:36 | CP.PCM.PN ---
<Nicholas Nieves - Last Filed: 07/29/17 16:18> Subjective - Date & Time of Evaluation Date of Evaluation: 07/29/17 Time of Evaluation: 11:30 - Subjective Subjective: Progress note. Attending: Dr. Glaser. Pt seen and examined at bedside. No acute distress. No complaints. No fevers, chills, vomiting, diarrhea. Objective - Vital Signs/Intake and Output Vital Signs (last 24 hours): Temp Pulse Resp BP Pulse Ox 98.2 F 80 20 126/82 96 07/29/17 07:00 07/29/17 07:00 07/29/17 07:00 07/29/17 07:00 07/29/17 07:00 Intake and Output: 07/29/17 07/29/17 06:59 18:59 Intake Total 450 Output Total 1950 Balance -1500 - Medications Medications: Current Medications Famotidine (Pepcid) 40 mg PO DAILY [facility] Last Admin: 07/29/17 10:47 Dose: 40 mg Home Med (Patient's Own Medication) 1 tab PO Q6 [facility] Last Admin: 07/29/17 11:14 Dose: 1 tab Tramadol HCl (Ultram) 50 mg PO Q6H PRN PRN Reason: Pain, moderate (4-7) Last Admin: 07/29/17 11:14 Dose: 50 mg - Labs Labs: 07/28/17 08:02 07/28/17 08:02 PT 14.9 SECONDS (9.7-12.2) H 07/25/17 06:52 INR 1.4 07/25/17 06:52 - Constitutional Appears: Non-toxic, No Acute Distress, Chronically Ill - Head Exam Head Exam: ATRAUMATIC, NORMAL INSPECTION, NORMOCEPHALIC - Eye Exam Eye Exam: EOMI - ENT Exam ENT Exam: Mucous Membranes Moist - Neck Exam Neck Exam: Full ROM, Normal Inspection - Respiratory Exam Respiratory Exam: NORMAL BREATHING PATTERN. absent: Respiratory Distress - Cardiovascular Exam Cardiovascular Exam: +S1, +S2 - GI/Abdominal Exam GI & Abdominal Exam: Soft, Normal Bowel Sounds. absent: Tenderness - Extremities Exam Extremities Exam: Full ROM, Normal Inspection - Back Exam Back Exam: NORMAL INSPECTION - Neurological Exam Neurological Exam: Alert, Awake, Oriented x3 - Psychiatric Exam Psychiatric exam: Normal Affect, Normal Mood - Skin Skin Exam: Dry, Intact, Normal Color, Warm Assessment and Plan - Assessment and Plan (Free Text) Assessment: This is a 42 yo male with 1. Hematuria -urology consult. Dr. Sanchez. recs appreciated -will get cardio Dr. Urbano for medical clearance. -was deemed accepable risk for sx -pt going for procedure with Dr. Sanchez 2. 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 GI/DVT ppx -scds -protonix daily discussed with Dr. Glaser <Raymundo Glaser S - Last Filed: 07/31/17 08:59> Objective - Vital Signs/Intake and Output Vital Signs (last 24 hours): Temp Pulse Resp BP Pulse Ox 98.2 F 94 H 20 128/85 96 07/31/17 07:00 07/31/17 07:00 07/31/17 07:00 07/31/17 07:00 07/31/17 07:00 Intake and Output: 07/31/17 07/31/17 06:59 18:59 Intake Total 800 Output Total 1700 Balance -900 - Medications Medications: Current Medications Famotidine (Pepcid) 40 mg PO DAILY [facility] Last Admin: 07/30/17 10:11 Dose: 40 mg Home Med (Patient's Own Medication) 1 tab PO Q6 [facility] Last Admin: 07/31/17 06:25 Dose: 1 tab Tramadol HCl (Ultram) 50 mg PO Q6H PRN PRN Reason: Pain, moderate (4-7) Last Admin: 07/31/17 06:25 Dose: 50 mg - Labs Labs: 07/31/17 08:15 07/30/17 08:27 PT 14.9 SECONDS (9.7-12.2) H 07/25/17 06:52 INR 1.4 07/25/17 06:52 Attending/Attestation - Attestation I have personally seen and examined this patient.: Yes I have fully participated in the care of the patient.: Yes I have reviewed all pertinent clinical information, including history, physical exam and plan: Yes Notes (Text): case seen and d.w staff and resident, concurred with finding and management..
[2017-07-29 12:05] LABS: BASO # 0.1 K/uL (0.0-0.2); EOS # 0.6 K/uL (0.0-0.7); EOS % 6.2 % (0.0-4.0); HEMOGLOBIN 13.6 g/dL (12.0-18.0); LYMPH # 1.9 K/uL (1.0-4.3); MEAN CELL VOLUME 87.4 fL (80.0-94.0); MEAN CORPUSCULAR HEMOGLOBIN 29.1 pg (27.0-31.0); MEAN CORPUSCULAR HGB CONC 33.3 g/dL (33.0-37.0); MONO # 0.7 K/uL (0.0-0.8); MONO % 8.2 % (0.0-10.0); NEUT # 5.6 K/uL (1.8-7.0); NEUT % 63.6 % (50.0-75.0); NRBC % 0.1 % (0.0-2.0); RBC 4.67 Mil/uL (4.40-5.90); WHITE BLOOD COUNT 8.9 K/uL (4.8-10.8)
[2017-07-29 12:08] LABS: ALB/GLOB RATIO 0.9 (1.0-2.1); ALBUMIN 3.7 g/dL (3.5-5.0); ALT/SGPT 12 U/L (21-72); AST/SGOT 20 U/L (17-59); BLOOD UREA NITROGEN 12 mg/dL (9-20); CALCIUM 8.8 mg/dl (8.6-10.4); GFR AFRICAN-AMERICAN > 60; GFR NON-AFRICAN AMERICAN > 60
[2017-07-29] MEDS ORDERED: Midazolam 2 MG/2 ML VIAL ONE (14:09)
[2017-07-29] MEDS ORDERED: Propofol 10 mg/ml Inj (20 ML) ONE (14:09)
[2017-07-29] MEDS ORDERED: Iohexol 240 (50 ml) ONE (14:28)
[2017-07-29] MEDS ORDERED: cefTRIAXone IV 1 gm in Dextros 50 ML IVPB ONE (14:28)
[2017-07-29] MEDS ORDERED: Lidocaine 2% Jelly (Uro-Jet) ONE (14:28)
[2017-07-29] MEDS ORDERED: HYDROmorphone 0.5 mg/0.5 ml ISec IVP PRN (15:53)
--- NOTE | 2017-07-29 16:02 | RAD ---
PROCEDURE: Intraoperative Fluoroscopy. HISTORY: JORGE URETERAL STONES, URINARY RETENTION FINDINGS: Fluoroscopic assistance was provided. Fluoroscopy time = 6.9 seconds. Radiation dose = 4.37 mGy - cm. Please refer to the operative report from FREDA Uribe, , MD [facility].
--- NOTE | 2017-07-29 17:16 | RAD ---
HISTORY: JORGE UERETERAL STONES,URINARY RETENTION COMPARISON: 06/03/2017 FINDINGS: BOWEL: No bowel obstruction. BONES: Gross deformity of the right hip -unchanged OTHER FINDINGS: IVC filter appears grossly intact as before. Extensive bilateral large coalescent renal calculi some extension into the intrarenal and extrarenal pelvis ease possible -overall appearance similar to before. Interval right double-J ureteral stent in place -the proximal coil projects over upper pole of the right kidney the distal is not old as the proximal and is and projects in the superior right hemipelvis. Correlation with the positioning is recommended root particular regarding the distal right ureteral stent placement No distal right ureteral or pelvic calcifications noted however the densities over the pelvis obscure optimal detail for any potential pelvic calculi is confounding stool here during this area IMPRESSION: Interval right ureteral stent insertion and as referenced above Bilateral extensive renal calculus burden -similar Other findings -as above.
[2017-07-30] MEDS: PENICILLAMINE 250 MG PO SCH ×4 (00:10→17:06)
--- NOTE | 2017-07-30 03:28 | OP ---
PROCEDURE DATE: 07/29/2017 PREOPERATIVE DIAGNOSES: 1. Bilateral stone disease. 2. Hematuria. 3. Hydronephrosis on the right side with non-obstructing stones. POSTOPERATIVE DIAGNOSES: 1. Bilateral stone disease. 2. Hematuria. 3. Hydronephrosis on the right side with non-obstructing stones. 4. Right double-J stent is more proximal in the right distal ureter, that is the stent appears to be above the UO (thus consistent with the CT scan, see below, indications of this procedure). 5. The patient still has urethral stricture disease despite having an indwelling Sanchez catheter. He has a strictured urethra. We can get through with a 22 scope, but it is definitely difficult. I took multiple pictures. It is now wide open as one would expect after having a Sanchez catheter. PROCEDURES: Cystoscopy, a right retrograde pyelogram, insertion of a right double-J stent, repositioning of the right double-J stent that was originally in. SURGEON: Mohamud Sanchez MD BLOOD LOSS: Less than 10 mL. COMPLICATIONS: No complications, but tremendously difficult case. FINDINGS: Very significant ( see below). INDICATIONS: A very pleasant gentleman here. See the history and physical for further details. Basically, he has a very difficult social scenario where nobody is willing to take care of the patient. According to his history, he cannot find somebody. I have discussed with him going to an center and that is my best recommendation. He has Jabier disease, a rare condition and he has very difficult management for the stones. There is a tremendous stone burden and he has multiple medical issues and he has morbid obesity. In fact, after today's procedure, I am going to discuss with him, it is a very challenging to do it here. Today, at the termination of today's procedure, we were able to get 2 double-J stents in place in good location. THE UROLOGY OPERATIVE FINDINGS: The meatus is normal. He has a tremendous amount of smegma around his penis. He does not have foreskin, but there is just extra skin there and tremendous amount of skin, it took about 2-3 minutes of just cleaning that to prep the patient despite having an indwelling Sanchez. He has an indwelling Sanchez catheter, it is a 16-S[place]. We removed it. He still had some scar tissue in the anterior urethra. It is not wide open, it is not pinpoint anymore, but it is not wide open. The verumontanum is minimally visually occlusive. The ureteral orifice identified. I took multiple pictures just to demonstrate, there is no stent there at that point. At the termination of the procedure, there is also a lot of stones within the ureter and we were able to put a double-J stent in with some difficulty to get the old double-J down. DESCRIPTION OF PROCEDURE: After obtaining informed consent, the patient was placed on the table. Routine monitor was placed. Time-out was called to confirm the patient and positioning. Cystoscope via urethra: Again, we removed the old Sanchez. Prior to doing anything, we reprepped the patient, we scrubbed the patient, the genitalia, perineum etc. We removed the old Sanchez catheter, 16-Saudi Arabian. We introduced 22-Saudi Arabian, it is tight, but we were able to go through it without any further dilation. We identified the ureteral orifice, took pictures on the right side. We did not touch the left side today. There are multiple stones there on the KUB. On the supervisor audit clerks film, it is consistent with the CAT scan, the stent is a little bit more migrated proximally. We did a retrograde pyelogram, contrast goes straight up to the kidney. Then we put a wire up through, we had some difficulty getting the wire, but with a little manipulation and twisting, we were able to get the wire up to the kidney. it did not affect the position of the double-J stent. We now introduced the ureteroscope adjacent to the wire. We identified the stent and then with great difficulty, but we were able to get a grasp on it and pulled down, it had definitely crossed it, I do want to mention there were a couple of stones within the ureter before that between the distal and the distal ureter. These just washed out pretty easily. Now, we used a grasper, we pulled it down into the orifice. I did not want to do further at this point, it took a long time and effort and I was concerned about sepsis and other factors. We were using the long rigid ureteroscope in the distal ureter, that was the one available. Everything we did was with the camera with good visualization, we had perfect vision, but it is definitely a challenging situation. At this point, we put the Sanchez catheter back in. Overall, we confirmed everything with both ways, by fluoroscopic imaging and also with direct vision. The patient tolerated the procedure without complications. ADDENDUM We are going to the discuss the options with the patient. It is a real challenging situation, very pleasant gentleman about the whole thing, but it is difficult for it to be done here in this center. I will discuss this with the patient. Mohamud Sanchez MD
[2017-07-30 08:45] LABS: BASO # 0.2 K/uL (0.0-0.2); BASO % 1.3 % (0.0-2.0); EOS # 0.1 K/uL (0.0-0.7); EOS % 0.7 % (0.0-4.0); HEMOGLOBIN 13.8 g/dL (12.0-18.0); LYMPH # 1.5 K/uL (1.0-4.3); LYMPH % 10.4 % (20.0-40.0); MEAN CELL VOLUME 86.6 fL (80.0-94.0); MEAN CORPUSCULAR HGB CONC 33.4 g/dL (33.0-37.0); MEAN PLATELET VOLUME 9.2 fL (7.2-11.7); MONO # 1.2 K/uL (0.0-0.8); MONO % 8.4 % (0.0-10.0); NEUT # 11.3 K/uL (1.8-7.0); NEUT % 79.2 % (50.0-75.0); RBC 4.77 Mil/uL (4.40-5.90); WHITE BLOOD COUNT 14.3 K/uL (4.8-10.8)
--- NOTE | 2017-07-30 08:55 | CP.PCM.PN ---
<Mena Contreras - Last Filed: 07/30/17 14:24> Subjective - Date & Time of Evaluation Date of Evaluation: 07/30/17 Time of Evaluation: 08:53 - Subjective Subjective: PGY2 progress note for Dr. Glaser Pt seen and examined at bedside. Resting comfotably. Denies having any CP, SOB , abd pain, N/V/D/C, F/C. Patient is tolerating diet. In fact, pt has 2 L soda bottle at bedside with a bag of Starbursts. Objective - Vital Signs/Intake and Output Vital Signs (last 24 hours): Temp Pulse Resp BP Pulse Ox 98.9 F 104 H 20 122/81 96 07/30/17 07:00 07/30/17 07:00 07/30/17 07:00 07/30/17 07:00 07/30/17 07:00 Intake and Output: 07/30/17 07/30/17 06:59 18:59 Intake Total 300 Output Total 1750 Balance -1450 - Medications Medications: Current Medications Famotidine (Pepcid) 40 mg PO DAILY [facility] Last Admin: 07/29/17 10:47 Dose: 40 mg Home Med (Patient's Own Medication) 1 tab PO Q6 [facility] Last Admin: 07/30/17 06:01 Dose: 1 tab Tramadol HCl (Ultram) 50 mg PO Q6H PRN PRN Reason: Pain, moderate (4-7) Last Admin: 07/30/17 06:01 Dose: 50 mg - Labs Labs: 07/30/17 08:27 07/29/17 11:37 PT 14.9 SECONDS (9.7-12.2) H 07/25/17 06:52 INR 1.4 07/25/17 06:52 - Constitutional Appears: Non-toxic, No Acute Distress - Head Exam Head Exam: ATRAUMATIC, NORMOCEPHALIC - ENT Exam ENT Exam: Mucous Membranes Moist - Respiratory Exam Respiratory Exam: Clear to Ausculation Bilateral. absent: Accessory Muscle Use , Rales, Rhonchi, Wheezes, Respiratory Distress - Cardiovascular Exam Cardiovascular Exam: REGULAR RHYTHM, +S1, +S2. absent: Gallop, Rubs, Murmur - GI/Abdominal Exam GI & Abdominal Exam: Soft, Normal Bowel Sounds. absent: Distended, Firm, Guarding, Rigid, Tenderness, Organomegaly - Extremities Exam Extremities Exam: absent: Pedal Edema, Tenderness - Neurological Exam Neurological Exam: Alert, Awake, Oriented x3 - Psychiatric Exam Psychiatric exam: Normal Affect, Normal Mood - Skin Skin Exam: absent: Dry, Normal Color, Warm Additional comments: stage III Sacral base wound Assessment and Plan - Assessment and Plan (Free Text) Assessment: This is a 42 yo male with past medical history of nephrolithiasis, morbid obesity, 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 CT of abd/ pelvis showed multiple kidney stones. 1. Urolithiasis - s/p cysto right pyelogram, repositioning of old right stent and insertion of right ureteral stent. - urology consult. Dr. Sanchez. 2. 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 Leukocytosis - Likely 2/2 procedure done yesterday 5. Stage III sacral pressure ulcer - Wound culture ordered 6. GI/DVT ppx - scds - protonix daily - Will consider starting pt on lovenox now that pt has completed the procedure All orders and management per Dr. Glaser <Raymundo Glaser S - Last Filed: 07/31/17 08:58> Objective - Vital Signs/Intake and Output Vital Signs (last 24 hours): Temp Pulse Resp BP Pulse Ox 98.2 F 94 H 20 128/85 96 07/31/17 07:00 07/31/17 07:00 07/31/17 07:00 07/31/17 07:00 07/31/17 07:00 Intake and Output: 07/31/17 07/31/17 06:59 18:59 Intake Total 800 Output Total 1700 Balance -900 - Medications Medications: Current Medications Famotidine (Pepcid) 40 mg PO DAILY [facility] Last Admin: 07/30/17 10:11 Dose: 40 mg Home Med (Patient's Own Medication) 1 tab PO Q6 [facility] Last Admin: 07/31/17 06:25 Dose: 1 tab Tramadol HCl (Ultram) 50 mg PO Q6H PRN PRN Reason: Pain, moderate (4-7) Last Admin: 07/31/17 06:25 Dose: 50 mg - Labs Labs: 07/31/17 08:15 07/30/17 08:27 PT 14.9 SECONDS (9.7-12.2) H 07/25/17 06:52 INR 1.4 07/25/17 06:52 Attending/Attestation - Attestation I have personally seen and examined this patient.: Yes I have fully participated in the care of the patient.: Yes I have reviewed all pertinent clinical information, including history, physical exam and plan: Yes Notes (Text): 07/31/17 08:58 case seen and d.w staff and resident, concurred with finding and management..
[2017-07-30 09:03] LABS: ALB/GLOB RATIO 0.9 (1.0-2.1); ALBUMIN 3.8 g/dL (3.5-5.0); ALT/SGPT 19 U/L (21-72); AST/SGOT 24 U/L (17-59); BLOOD UREA NITROGEN 10 mg/dL (9-20); CALCIUM 9.1 mg/dl (8.6-10.4); GFR AFRICAN-AMERICAN > 60; GFR NON-AFRICAN AMERICAN > 60
--- NOTE | 2017-07-30 16:02 | CP.PCM.PN ---
Subjective - Date & Time of Evaluation Date of Evaluation: 07/30/17 Time of Evaluation: 07:20 - Subjective Subjective: clinically same Objective - Vital Signs/Intake and Output Vital Signs (last 24 hours): Temp Pulse Resp BP Pulse Ox 97.9 F 101 H 20 126/88 96 07/30/17 15:53 07/30/17 15:53 07/30/17 15:53 07/30/17 15:53 07/30/17 15:53 Intake and Output: 07/30/17 07/30/17 06:59 18:59 Intake Total 300 Output Total 1750 1000 Balance -1450 -1000 - Medications Medications: Current Medications Famotidine (Pepcid) 40 mg PO DAILY [facility] Last Admin: 07/30/17 10:11 Dose: 40 mg Home Med (Patient's Own Medication) 1 tab PO Q6 [facility] Last Admin: 07/30/17 11:35 Dose: 1 tab Tramadol HCl (Ultram) 50 mg PO Q6H PRN PRN Reason: Pain, moderate (4-7) Last Admin: 07/30/17 12:41 Dose: 50 mg - Labs Labs: 07/30/17 08:27 07/30/17 08:27 PT 14.9 SECONDS (9.7-12.2) H 07/25/17 06:52 INR 1.4 07/25/17 06:52 - Constitutional Appears: Well - Head Exam Head Exam: ATRAUMATIC, NORMAL INSPECTION, NORMOCEPHALIC - Eye Exam Eye Exam: EOMI, Normal appearance, PERRL Pupil Exam: NORMAL ACCOMODATION, PERRL - ENT Exam ENT Exam: Mucous Membranes Moist, Normal Exam - Neck Exam Neck Exam: Full ROM, Normal Inspection. 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 CT of abd/pelvis showed multiple kidney stones. 1. Urolithiasis - s/p cysto right pyelogram, repositioning of old right stent and insertion of right ureteral stent. - urology consult. Dr. Sanchez. 2. 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 Leukocytosis - Likely 2/2 procedure done yesterday 5. Stage III sacral pressure ulcer - Wound culture ordered 6. GI/DVT ppx - scds - protonix daily - Will consider starting pt on lovenox now that pt has completed the procedure
[2017-07-31] MEDS: PENICILLAMINE 250 MG PO SCH ×5 (00:46→23:57)
[2017-07-31 08:48] LABS: BASO # 0.1 K/uL (0.0-0.2); EOS # 0.3 K/uL (0.0-0.7); EOS % 2.6 % (0.0-4.0); HEMOGLOBIN 13.6 g/dL (12.0-18.0); LYMPH # 1.3 K/uL (1.0-4.3); LYMPH % 10.8 % (20.0-40.0); MEAN CELL VOLUME 87.1 fL (80.0-94.0); MEAN CORPUSCULAR HEMOGLOBIN 29.2 pg (27.0-31.0); MEAN CORPUSCULAR HGB CONC 33.5 g/dL (33.0-37.0); MONO # 1.2 K/uL (0.0-0.8); MONO % 10.2 % (0.0-10.0); NEUT # 8.9 K/uL (1.8-7.0); NEUT % 75.4 % (50.0-75.0); NRBC % 0.1 % (0.0-2.0); RBC 4.67 Mil/uL (4.40-5.90); RED CELL DISTRIBUTION WIDTH 15.1 % (11.5-14.5); WHITE BLOOD COUNT 11.7 K/uL (4.8-10.8)
[2017-07-31 09:11] LABS: ALB/GLOB RATIO 0.8 (1.0-2.1); ALBUMIN 3.6 g/dL (3.5-5.0); ALT/SGPT 16 U/L (21-72); AST/SGOT 15 U/L (17-59); BLOOD UREA NITROGEN 11 mg/dL (9-20); CALCIUM 9.1 mg/dl (8.6-10.4); GFR AFRICAN-AMERICAN > 60; GFR NON-AFRICAN AMERICAN > 60
--- NOTE | 2017-07-31 09:28 | CP.PCM.PN ---
<Mena Contreras - Last Filed: 07/31/17 16:44> Subjective - Date & Time of Evaluation Date of Evaluation: 07/31/17 Time of Evaluation: 09:25 - Subjective Subjective: PGy2 progress note for Dr. Glaser Pt seen and examined at bedside. No acute events overnight. Pt is laying in bed and states that he comfortable. Denies having any abd pain, N/V/d/C, F/C. Pt has collins in place draining dark yellow urine. Objective - Vital Signs/Intake and Output Vital Signs (last 24 hours): Temp Pulse Resp BP Pulse Ox 98.2 F 94 H 20 128/85 96 07/31/17 07:00 07/31/17 07:00 07/31/17 07:00 07/31/17 07:00 07/31/17 07:00 Intake and Output: 07/31/17 07/31/17 06:59 18:59 Intake Total 800 Output Total 1700 Balance -900 - Medications Medications: Current Medications Famotidine (Pepcid) 40 mg PO DAILY [facility] Last Admin: 07/30/17 10:11 Dose: 40 mg Home Med (Patient's Own Medication) 1 tab PO Q6 [facility] Last Admin: 07/31/17 06:25 Dose: 1 tab Tramadol HCl (Ultram) 50 mg PO Q6H PRN PRN Reason: Pain, moderate (4-7) Last Admin: 07/31/17 06:25 Dose: 50 mg - Labs Labs: 07/31/17 08:15 07/31/17 08:15 PT 14.9 SECONDS (9.7-12.2) H 07/25/17 06:52 INR 1.4 07/25/17 06:52 - Constitutional Appears: Non-toxic, No Acute Distress - Head Exam Head Exam: ATRAUMATIC, NORMOCEPHALIC - ENT Exam ENT Exam: Mucous Membranes Moist - Respiratory Exam Respiratory Exam: Clear to Ausculation Bilateral, NORMAL BREATHING PATTERN. absent: Rales, Rhonchi, Wheezes - Cardiovascular Exam Cardiovascular Exam: REGULAR RHYTHM, RRR, +S1, +S2. absent: Rubs, Murmur - GI/Abdominal Exam GI & Abdominal Exam: Soft, Normal Bowel Sounds. absent: Distended, Firm, Guarding, Rigid, Organomegaly - Neurological Exam Neurological Exam: Alert, Awake, Oriented x3 - Psychiatric Exam Psychiatric exam: Normal Affect, Normal Mood - Skin Skin Exam: Dry, Intact, Normal Color, Warm Assessment and Plan - Assessment and Plan (Free Text) Assessment: This is a 42 yo male with past medical history of nephrolithiasis, morbid obesity, 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 CT of abd/ pelvis showed multiple kidney stones. 1. Urolithiasis - s/p cysto right pyelogram, repositioning of old right stent and insertion of right ureteral stent. - urology consult. Dr. Sanchez. 2. 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 Leukocytosis - Trending down - Likely 2/2 procedure done yesterday 5. Stage III sacral pressure ulcer - Wound cultures showed gram + and gram =. 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 PICC line planned for tomorrow - Patient is adamant about not going to [facility]. Patient will go home with retirement. - ID, Dr. Burgos is consulted 6. GI/DVT ppx - scds - protonix daily - Will consider starting pt on lovenox now that pt has completed the procedure All orders and management per Dr. Glaser <Raymundo Glaser S - Last Filed: 07/31/17 21:56> Objective - Vital Signs/Intake and Output Vital Signs (last 24 hours): Temp Pulse Resp BP Pulse Ox 97.4 F L 89 20 121/76 95 07/31/17 15:39 07/31/17 15:39 07/31/17 15:39 07/31/17 15:39 07/31/17 15:39 Intake and Output: 07/31/17 08/01/17 18:59 06:59 Intake Total 100 Balance 100 - Medications Medications: Current Medications Famotidine (Pepcid) 40 mg PO DAILY [facility] Last Admin: 07/31/17 10:20 Dose: 40 mg Home Med (Patient's Own Medication) 1 tab PO Q6 [facility] Last Admin: 07/31/17 17:15 Dose: 1 tab Gentamicin Sulfate 80 mg/ (Sodium Chloride) 102 mls @ 100 mls/hr IVPB Q24H [facility] PRN Reason: Protocol Last Admin: 07/31/17 16:38 Dose: 100 mls/hr Piperacillin Sod/Tazobactam Sod (Zosyn 3.375 Gm Iv Premix) 3.375 gm in 50 mls @ 100 mls/hr IVPB Q8H [facility] PRN Reason: Protocol Last Admin: 07/31/17 20:34 Dose: 100 mls/hr Morphine Sulfate (Morphine) 2 mg IVP Q4H PRN PRN Reason: Pain, severe (8-10) Last Admin: 07/31/17 18:53 Dose: 2 mg Ondansetron HCl (Zofran Inj) 4 mg IVP DAILY@ONCE PRN PRN Reason: nausea Last Admin: 07/31/17 18:53 Dose: 4 mg Tramadol HCl (Ultram) 50 mg PO Q6H PRN PRN Reason: Pain, moderate (4-7) Last Admin: 07/31/17 16:37 Dose: 50 mg - Labs Labs: 07/31/17 08:15 07/31/17 08:15 PT 14.9 SECONDS (9.7-12.2) H 07/25/17 06:52 INR 1.4 07/25/17 06:52 Attending/Attestation - Attestation I have personally seen and examined this patient.: Yes I have fully participated in the care of the patient.: Yes I have reviewed all pertinent clinical information, including history, physical exam and plan: Yes Notes (Text): case seen and d.w staff and resident, concurred with finding and management..
[2017-07-31] MEDS ORDERED: Potassium Chloride 20 mEq ER Tab PO STA (09:56)
[2017-07-31] MEDS ORDERED: Lidocaine 2% Jelly (Uro-Jet) ONE (11:24)
[2017-07-31] MEDS ORDERED: cefTRIAXone IV 1 gm in Dextros 100 ML IVPB ONE (11:24)
[2017-07-31] MEDS ORDERED: Iohexol 240 (50 ml) ONE (11:24)
[2017-07-31] MEDS ORDERED: Midazolam 2 MG/2 ML VIAL ONE (11:35)
[2017-07-31] MEDS ORDERED: Propofol 10 mg/ml Inj (20 ML) ONE ×2 (11:35→11:39)
[2017-07-31] MEDS ORDERED: Succinylcholine Chloride 20 mg/ml Syr (5 ml) IV ONE (11:39)
[2017-07-31] MEDS ORDERED: HYDROmorphone 0.5 mg/0.5 ml ISec IVP PRN (12:55)
--- NOTE | 2017-07-31 14:03 | RAD ---
PROCEDURE: Intraoperative Fluoroscopy. HISTORY: UROLITHIASIS/ URINARY RETENTION FINDINGS: Fluoroscopic assistance was provided for right ureteroscopy. Please refer to the operative report from FREDA Uribe, , MD [facility]. Total fluoroscopic time (continuous mode) utilized during the procedure (seconds) 30.2.
--- NOTE | 2017-07-31 14:06 | RAD ---
HISTORY: UROLITHIASIS AND URINARY RETENTION COMPARISON: 07/29/2017 FINDINGS: BOWEL: Normal. No obstruction. No free air. BONES: Normal. OTHER FINDINGS: Double-J stent catheters identified on the right. Incomplete visualization of bilateral nephrolithiasis. IVC filter noted IMPRESSION: New double-J stent catheter identified on the right.
--- NOTE | 2017-07-31 19:16 | CP.PCM.CON ---
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 CT of abd/ pelvis showed multiple kidney stones. Referred for ID eval of Stage III sacral pressure ulcer - started on IV antibiotics wound care in progress PMH hx of Cherie's disease Urolithiasis s/p cysto right pyelogram, repositioning of old right stent and insertion of right ureteral stent. 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) - HEENT Hx HEENT Problems: Yes (GLASSES) - RENAL Hx Chronic Kidney Disease: Yes Hx Kidney Stones: Yes - ENDOCRINE/METABOLIC Hx Endocrine Disorders: Yes Other/Comment: Cherie's Disease COPPER METABOLISM PROBLEM - INTEGUMENTARY Hx Dermatological Problems: Yes (BEDBOUND HAS SKIN IRRITATIONS) - MUSCULOSKELETAL/RHEUMATOLOGICAL Hx Musculoskeletal Disorders: Yes Hx Back Pain: Yes Hx Falls: Yes Other/Comment: BED BOUND - GASTROINTESTINAL Hx Gastrointestinal Disorders: Yes Hx Gastritis: Yes Hx Ulcer: Yes - GENITOURINARY/GYNECOLOGICAL Hx Genitourinary Disorders: Yes Hx Hematuria: Yes - PSYCHIATRIC Hx Psychophysiologic Disorder: No Hx Substance Use: No - SURGICAL HISTORY Hx Surgeries: Yes Hx Orthopedic Surgery: Yes (L4 L5 ? PROCEDURE) Hx Vascular Surgery: Yes (IVC FILTER RT ARM) Other/Comment: back surgery 8 years ago. feeding tube - removed 4 years ago. right arm IVC filter placement CYSTO STENT - ANESTHESIA Hx Anesthesia: Yes Hx Anesthesia Reactions: No Hx Malignant Hyperthermia: No Has any member of the family had a problem w/ anesthesia?: No (UNKNOWN) Meds Allergies/Adverse Reactions: Allergies Allergy/AdvReac Type Severity Reaction Status Date / Time No Known Allergies Allergy Verified 05/29/17 08:51 - Medications Medications: Current Medications Famotidine (Pepcid) 40 mg PO DAILY [facility] Last Admin: 07/31/17 10:20 Dose: 40 mg Home Med (Patient's Own Medication) 1 tab PO Q6 [facility] Last Admin: 07/31/17 17:15 Dose: 1 tab Gentamicin Sulfate 80 mg/ (Sodium Chloride) 102 mls @ 100 mls/hr IVPB Q24H CAROL PRN Reason: Protocol Last Admin: 07/31/17 16:38 Dose: 100 mls/hr Potassium Chloride (Potassium Chloride 20 Meq/100 Ml) 20 meq in 100 mls @ 50 mls/hr IVPB ONCE ONE Stop: 07/31/17 19:46 Last Admin: 07/31/17 18:10 Dose: Not Given Morphine Sulfate (Morphine) 2 mg IVP Q4H PRN PRN Reason: Pain, severe (8-10) Last Admin: 07/31/17 18:53 Dose: 2 mg Ondansetron HCl (Zofran Inj) 4 mg IVP DAILY@ONCE PRN PRN Reason: nausea Last Admin: 07/31/17 18:53 Dose: 4 mg Tramadol HCl (Ultram) 50 mg PO Q6H PRN PRN Reason: Pain, moderate (4-7) Last Admin: 07/31/17 16:37 Dose: 50 mg Physical Exam - Constitutional Appears: Chronically Ill - Head Exam Head Exam: ATRAUMATIC, NORMOCEPHALIC - Eye Exam Eye Exam: PERRL. absent: Scleral icterus - ENT Exam ENT Exam: Mucous Membranes Dry, Normal External Ear Exam - Neck Exam Neck exam: Negative for: Lymphadenopathy - Respiratory Exam Respiratory Exam: Decreased Breath Sounds - Cardiovascular Exam Cardiovascular Exam: REGULAR RHYTHM - GI/Abdominal Exam GI & Abdominal Exam: Diminished Bowel Sounds, Soft - Rectal Exam Rectal Exam: Deferred - Exam Exam: NORMAL INSPECTION - Extremities Exam Extremities exam: Negative for: pedal edema - Back Exam Back exam: absent: CVA tenderness (L), CVA tenderness (R) - Neurological Exam Neurological exam: Alert, CN II-XII Intact, Oriented x3 - Psychiatric Exam Psychiatric exam: Depressed - Skin Skin Exam: Dry Results - Vital Signs Recent Vital Signs: Last Vital Signs Temp 97.4 F L 07/31/17 15:39 Pulse 89 07/31/17 15:39 Resp 20 07/31/17 15:39 BP 121/76 07/31/17 15:39 Pulse Ox 95 07/31/17 15:39 - Labs Result Diagrams: 07/31/17 08:15 07/31/17 08:15 Labs: Laboratory Results - last 24 hr 07/31/17 07/31/17 08:15 08:15 WBC 11.7 H RBC 4.67 Hgb 13.6 Hct 40.7 MCV 87.1 MCH 29.2 MCHC 33.5 RDW 15.1 H Plt Count 257 MPV 9.0 Neut % (Auto) 75.4 H Lymph % (Auto) 10.8 L [place] % (Auto) 10.2 H Eos % (Auto) 2.6 Baso % (Auto) 1.0 Neut # (Auto) 8.9 H Lymph # (Auto) 1.3 [place] # (Auto) 1.2 H Eos # (Auto) 0.3 Baso # (Auto) 0.1 Sodium 139 Potassium 3.5 L Chloride 102 Carbon Dioxide 22 Anion Gap 18 BUN 11 Creatinine 1.2 Est GFR ( Amer) > 60 Est GFR (Non-Af Amer) > 60 Random Glucose 129 H Calcium 9.1 Total Bilirubin 1.6 H AST 15 L D ALT 16 L Alkaline Phosphatase 67 Total Protein 8.1 Albumin 3.6 Globulin 4.4 H Albumin/Globulin Ratio 0.8 L Assessment & Plan (1) Kidney stones Status: Acute (2) UTI (urinary tract infection) Status: Acute - Assessment and Plan (Free Text) Assessment: infected decubiti- cultures pending cont wound care and IV antibiotics
[2017-07-31] MEDS: Piperacill/Tazo 3.375gm in Dex 3.375 GM/50 ML BAG IVPB SCH (20:34)
--- NOTE | 2017-07-31 21:59 | CP.PCM.PN ---
Subjective - Date & Time of Evaluation Date of Evaluation: 07/31/17 Time of Evaluation: 19:00 - Subjective Subjective: pt seen and examined at bedside clinically same Objective - Vital Signs/Intake and Output Vital Signs (last 24 hours): Temp Pulse Resp BP Pulse Ox 97.4 F L 89 20 121/76 95 07/31/17 15:39 07/31/17 15:39 07/31/17 15:39 07/31/17 15:39 07/31/17 15:39 Intake and Output: 07/31/17 08/01/17 18:59 06:59 Intake Total 100 Balance 100 - Medications Medications: Current Medications Famotidine (Pepcid) 40 mg PO DAILY [facility] Last Admin: 07/31/17 10:20 Dose: 40 mg Home Med (Patient's Own Medication) 1 tab PO Q6 [facility] Last Admin: 07/31/17 17:15 Dose: 1 tab Gentamicin Sulfate 80 mg/ (Sodium Chloride) 102 mls @ 100 mls/hr IVPB Q24H CAROL PRN Reason: Protocol Last Admin: 07/31/17 16:38 Dose: 100 mls/hr Piperacillin Sod/Tazobactam Sod (Zosyn 3.375 Gm Iv Premix) 3.375 gm in 50 mls @ 100 mls/hr IVPB Q8H CAROL PRN Reason: Protocol Last Admin: 07/31/17 20:34 Dose: 100 mls/hr Morphine Sulfate (Morphine) 2 mg IVP Q4H PRN PRN Reason: Pain, severe (8-10) Last Admin: 07/31/17 18:53 Dose: 2 mg Ondansetron HCl (Zofran Inj) 4 mg IVP DAILY@ONCE PRN PRN Reason: nausea Last Admin: 07/31/17 18:53 Dose: 4 mg Tramadol HCl (Ultram) 50 mg PO Q6H PRN PRN Reason: Pain, moderate (4-7) Last Admin: 07/31/17 16:37 Dose: 50 mg - Labs Labs: 07/31/17 08:15 07/31/17 08:15 PT 14.9 SECONDS (9.7-12.2) H 07/25/17 06:52 INR 1.4 07/25/17 06:52 - Constitutional Appears: No Acute Distress - Head Exam Head Exam: ATRAUMATIC, NORMAL INSPECTION, NORMOCEPHALIC - Eye Exam Eye Exam: EOMI, Normal appearance, PERRL Pupil Exam: NORMAL ACCOMODATION, PERRL - ENT Exam ENT Exam: Mucous Membranes Moist - Neck Exam Neck Exam: Full ROM - Respiratory Exam Respiratory Exam: Decreased Breath Sounds - Cardiovascular Exam Cardiovascular Exam: REGULAR RHYTHM, +S1, +S2 - GI/Abdominal Exam GI & Abdominal Exam: Soft, Diminished Bowel Sounds - Rectal Exam Rectal Exam: Deferred - Neurological Exam 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 Urolithiasis - s/p cysto right pyelogram, repositioning of old right stent and insertion of right ureteral stent. - urology consult. Dr. Sanchez. 2. 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 Leukocytosis - Trending down - Likely 2/2 procedure done yesterday 5. Stage III sacral pressure ulcer - Wound cultures showed gram + and gram =. Awaiting sensitivity - Pt will require prison Abx. PICC line planned for tomorrow - Patient is adamant about not going to [facility]. Patient will go home with longterm. - ID, Dr. Burgos is consulted 6. GI/DVT ppx - scds - protonix daily - Will consider starting pt on lovenox now that pt has completed the procedure case d/w staff yvonne meds as ordered
[2017-08-01] MEDS: PENICILLAMINE 250 MG PO SCH ×4 (05:20→23:43)
[2017-08-01] MEDS: Piperacill/Tazo 3.375gm in Dex 3.375 GM/50 ML BAG IVPB SCH ×3 (05:21→21:44)
--- NOTE | 2017-08-01 11:27 | RAD ---
HISTORY: verify right PICC COMPARISON: 05/29/2017. FINDINGS: The right PICC line terminates in the SVC. There is stable position of the SVC filter. LUNGS: There are low lung volumes. There is moderate pulmonary venous congestion. There is multifocal subsegmental atelectasis in the lungs. PLEURA: No significant pleural effusion identified, no pneumothorax apparent. CARDIOVASCULAR: There is mild cardiomegaly. OSSEOUS STRUCTURES: No significant abnormalities. VISUALIZED UPPER ABDOMEN: Normal. OTHER FINDINGS: None. IMPRESSION: Right PICC line terminates in the SVC. No pneumothorax. Mild cardiomegaly and moderate venous congestion.
[2017-08-01 13:59] LABS: BASO # 0.1 K/uL (0.0-0.2); EOS # 0.2 K/uL (0.0-0.7); EOS % 2.9 % (0.0-4.0); HEMOGLOBIN 12.4 g/dL (12.0-18.0); LYMPH # 0.9 K/uL (1.0-4.3); LYMPH % 10.8 % (20.0-40.0); MEAN CELL VOLUME 87.4 fL (80.0-94.0); MEAN CORPUSCULAR HEMOGLOBIN 28.3 pg (27.0-31.0); MEAN CORPUSCULAR HGB CONC 32.4 g/dL (33.0-37.0); MEAN PLATELET VOLUME 9.1 fL (7.2-11.7); MONO # 0.8 K/uL (0.0-0.8); MONO % 9.7 % (0.0-10.0); NEUT # 5.9 K/uL (1.8-7.0); NEUT % 75.6 % (50.0-75.0); NRBC % 0.1 % (0.0-2.0); RBC 4.37 Mil/uL (4.40-5.90); RED CELL DISTRIBUTION WIDTH 15.2 % (11.5-14.5); WHITE BLOOD COUNT 7.8 K/uL (4.8-10.8)
[2017-08-01 14:08] LABS: ALB/GLOB RATIO 0.9 (1.0-2.1); ALBUMIN 3.6 g/dL (3.5-5.0); ALT/SGPT 12 U/L (21-72); AST/SGOT 15 U/L (17-59); BLOOD UREA NITROGEN 12 mg/dL (9-20); CALCIUM 8.8 mg/dl (8.6-10.4); GFR AFRICAN-AMERICAN > 60; GFR NON-AFRICAN AMERICAN > 60
[2017-08-01] MEDS ORDERED: Potassium Chloride 20 mEq ER Tab PO ONE (14:30)
--- NOTE | 2017-08-01 18:11 | PCM.URO ---
Urology Progress Note - Objective Lab Studies: Reviewed (plans as above full notes dictated) Lab Results Last 24 Hours: Laboratory Results - last 24 hr 08/01/17 08/01/17 08/01/17 13:50 13:50 13:50 WBC 7.8 RBC 4.37 L Hgb 12.4 Hct 38.2 MCV 87.4 MCH 28.3 MCHC 32.4 L RDW 15.2 H Plt Count 223 MPV 9.1 Neut % (Auto) 75.6 H Lymph % (Auto) 10.8 L [place] % (Auto) 9.7 Eos % (Auto) 2.9 Baso % (Auto) 1.0 Neut # (Auto) 5.9 Lymph # (Auto) 0.9 L [place] # (Auto) 0.8 Eos # (Auto) 0.2 Baso # (Auto) 0.1 Sodium 134 Potassium 3.5 L Chloride 99 Carbon Dioxide 24 Anion Gap 14 BUN 12 Creatinine 1.3 Est GFR ( Amer) > 60 Est GFR (Non-Af Amer) > 60 Random Glucose 109 Calcium 8.8 Total Bilirubin 1.3 AST 15 L ALT 12 L D Alkaline Phosphatase 65 Total Protein 7.6 Albumin 3.6 Globulin 4.0 H Albumin/Globulin Ratio 0.9 L Gentamicin Trough < 0.1 Intake & Output: Intake & Output 07/31/17 08/01/17 08/01/17 18:59 06:59 18:59 Intake Total 100 960 Output Total 600 1000 Balance 100 -600 -40 Intake: IV 100 Oral 960 Output: Urine 600 1000 Urethral (Sanchez) 600 1000 Other: # Bowel Movements 0 Vital Signs: Vital Signs - 24 hr 07/31/17 08/01/17 08/01/17 23:20 07:40 15:35 Temperature 98.5 F 98.2 F 98.2 F Pulse Rate 86 95 H 84 Respiratory 20 20 20 Rate Blood Pressure 128/81 114/73 115/69 O2 Sat by Pulse 96 94 L 95 Oximetry
--- NOTE | 2017-08-01 18:37 | CP.PCM.PN ---
Subjective - Date & Time of Evaluation Date of Evaluation: 08/01/17 Time of Evaluation: 10:00 - Subjective Subjective: awake alert nad iv rx in progress Objective - Vital Signs/Intake and Output Vital Signs (last 24 hours): Temp Pulse Resp BP Pulse Ox 98.2 F 84 20 115/69 95 08/01/17 15:35 08/01/17 15:35 08/01/17 15:35 08/01/17 15:35 08/01/17 15:35 Intake and Output: 08/01/17 08/01/17 06:59 18:59 Intake Total 960 Output Total 600 1000 Balance -600 -40 - Medications Medications: Current Medications Famotidine (Pepcid) 40 mg PO DAILY [facility] Last Admin: 08/01/17 11:03 Dose: 40 mg Home Med (Patient's Own Medication) 1 tab PO Q6 [facility] Last Admin: 08/01/17 17:38 Dose: Not Given Gentamicin Sulfate 80 mg/ (Sodium Chloride) 102 mls @ 100 mls/hr IVPB Q24H CAROL PRN Reason: Protocol Last Admin: 08/01/17 17:37 Dose: 100 mls/hr Piperacillin Sod/Tazobactam Sod (Zosyn 3.375 Gm Iv Premix) 3.375 gm in 50 mls @ 100 mls/hr IVPB Q8H CAROL PRN Reason: Protocol Last Admin: 08/01/17 12:34 Dose: 100 mls/hr Morphine Sulfate (Morphine) 2 mg IVP Q4H PRN PRN Reason: Pain, severe (8-10) Last Admin: 08/01/17 18:18 Dose: 2 mg Ondansetron HCl (Zofran Inj) 4 mg IVP DAILY@ONCE PRN PRN Reason: nausea Last Admin: 08/01/17 12:33 Dose: 4 mg Tramadol HCl (Ultram) 50 mg PO Q6H PRN PRN Reason: Pain, moderate (4-7) Last Admin: 07/31/17 22:33 Dose: 50 mg - Labs Labs: 08/01/17 13:50 08/01/17 13:50 PT 14.9 SECONDS (9.7-12.2) H 07/25/17 06:52 INR 1.4 07/25/17 06:52 - Constitutional Appears: Non-toxic, Chronically Ill - Head Exam Head Exam: NORMOCEPHALIC - Eye Exam Eye Exam: PERRL - ENT Exam ENT Exam: Mucous Membranes Dry - Neck Exam Neck Exam: absent: Lymphadenopathy - Respiratory Exam Respiratory Exam: Decreased Breath Sounds - Cardiovascular Exam Cardiovascular Exam: REGULAR RHYTHM - GI/Abdominal Exam GI & Abdominal Exam: Distended, Soft - Rectal Exam Rectal Exam: Deferred - Exam Exam: NORMAL INSPECTION - Extremities Exam Extremities Exam: absent: Pedal Edema - Back Exam Back Exam: absent: CVA tenderness (L), CVA tenderness (R) Assessment and Plan (1) Kidney stones Status: Acute (2) UTI (urinary tract infection) Status: Acute - Assessment and Plan (Free Text) Assessment: cultures noted cont iv zosyn for now wound care and IV rx
--- NOTE | 2017-08-01 20:30 | CP.PCM.PN ---
Subjective - Date & Time of Evaluation Date of Evaluation: 08/01/17 Time of Evaluation: 08:00 - Subjective Subjective: clinically same Objective - Vital Signs/Intake and Output Vital Signs (last 24 hours): Temp Pulse Resp BP Pulse Ox 98.2 F 84 20 115/69 95 08/01/17 15:35 08/01/17 15:35 08/01/17 15:35 08/01/17 15:35 08/01/17 15:35 Intake and Output: 08/01/17 08/02/17 18:59 06:59 Intake Total 960 Output Total 1000 Balance -40 - Medications Medications: Current Medications Famotidine (Pepcid) 40 mg PO DAILY [facility] Last Admin: 08/01/17 11:03 Dose: 40 mg Home Med (Patient's Own Medication) 1 tab PO Q6 [facility] Last Admin: 08/01/17 17:38 Dose: Not Given Gentamicin Sulfate 80 mg/ (Sodium Chloride) 102 mls @ 100 mls/hr IVPB Q24H CAROL PRN Reason: Protocol Last Admin: 08/01/17 17:37 Dose: 100 mls/hr Piperacillin Sod/Tazobactam Sod (Zosyn 3.375 Gm Iv Premix) 3.375 gm in 50 mls @ 100 mls/hr IVPB Q8H [facility] PRN Reason: Protocol Last Admin: 08/01/17 12:34 Dose: 100 mls/hr Morphine Sulfate (Morphine) 2 mg IVP Q4H PRN PRN Reason: Pain, severe (8-10) Last Admin: 08/01/17 18:18 Dose: 2 mg Ondansetron HCl (Zofran Inj) 4 mg IVP DAILY@ONCE PRN PRN Reason: nausea Last Admin: 08/01/17 12:33 Dose: 4 mg Tramadol HCl (Ultram) 50 mg PO Q6H PRN PRN Reason: Pain, moderate (4-7) Last Admin: 07/31/17 22:33 Dose: 50 mg - Labs Labs: 08/01/17 13:50 08/01/17 13:50 PT 14.9 SECONDS (9.7-12.2) H 07/25/17 06:52 INR 1.4 07/25/17 06:52 - Constitutional Appears: Well - Head Exam Head Exam: ATRAUMATIC, NORMAL INSPECTION, NORMOCEPHALIC - Eye Exam Eye Exam: EOMI, Normal appearance, PERRL Pupil Exam: NORMAL ACCOMODATION, PERRL - ENT Exam ENT Exam: Mucous Membranes Moist, Normal Exam - Neck Exam Neck Exam: Full ROM, Normal Inspection. absent: Lymphadenopathy - Respiratory Exam Respiratory Exam: Decreased Breath Sounds - Cardiovascular Exam Cardiovascular Exam: REGULAR RHYTHM, +S1, +S2 - GI/Abdominal Exam GI & Abdominal Exam: Soft, Diminished Bowel Sounds - Rectal Exam Rectal Exam: Deferred Assessment and Plan (1) Kidney stones Status: Acute (2) UTI (urinary tract infection) Status: Acute
[2017-08-02] MEDS: Piperacill/Tazo 3.375gm in Dex 3.375 GM/50 ML BAG IVPB SCH ×3 (04:11→21:19)
[2017-08-02] MEDS: PENICILLAMINE 250 MG PO SCH ×3 (05:12→21:19)
--- NOTE | 2017-08-02 12:41 | CP.PCM.PN ---
Subjective - Date & Time of Evaluation Date of Evaluation: 08/02/17 Time of Evaluation: 08:00 - Subjective Subjective: clinically same Objective - Vital Signs/Intake and Output Vital Signs (last 24 hours): Temp Pulse Resp BP Pulse Ox 97.8 F 82 20 115/74 97 08/02/17 07:00 08/02/17 07:00 08/02/17 07:00 08/02/17 07:00 08/02/17 07:00 Intake and Output: 08/02/17 08/02/17 06:59 18:59 Intake Total 800 Output Total 1700 Balance -900 - Medications Medications: Current Medications Famotidine (Pepcid) 40 mg PO DAILY [facility] Last Admin: 08/02/17 09:20 Dose: 40 mg Home Med (Patient's Own Medication) 1 tab PO Q6 [facility] Last Admin: 08/02/17 05:12 Dose: 1 tab Gentamicin Sulfate 80 mg/ (Sodium Chloride) 102 mls @ 100 mls/hr IVPB Q24H [facility] PRN Reason: Protocol Last Admin: 08/01/17 17:37 Dose: 100 mls/hr Piperacillin Sod/Tazobactam Sod (Zosyn 3.375 Gm Iv Premix) 3.375 gm in 50 mls @ 100 mls/hr IVPB Q8H CAR[facility] PRN Reason: Protocol Last Admin: 08/02/17 04:11 Dose: 100 mls/hr Morphine Sulfate (Morphine) 2 mg IVP Q4H PRN PRN Reason: Pain, severe (8-10) Last Admin: 08/02/17 09:20 Dose: 2 mg Ondansetron HCl (Zofran Inj) 4 mg IVP DAILY@ONCE PRN PRN Reason: nausea Last Admin: 08/01/17 12:33 Dose: 4 mg Tramadol HCl (Ultram) 50 mg PO Q6H PRN PRN Reason: Pain, moderate (4-7) Last Admin: 07/31/17 22:33 Dose: 50 mg - Labs Labs: 08/01/17 13:50 08/01/17 13:50 PT 14.9 SECONDS (9.7-12.2) H 07/25/17 06:52 INR 1.4 07/25/17 06:52 - Constitutional Appears: Well - Head Exam Head Exam: ATRAUMATIC, NORMAL INSPECTION, NORMOCEPHALIC - Eye Exam Eye Exam: EOMI, Normal appearance, PERRL Pupil Exam: NORMAL ACCOMODATION, PERRL - ENT Exam ENT Exam: Mucous Membranes Moist, Normal Exam - Neck Exam Neck Exam: Full ROM, Normal Inspection. absent: Lymphadenopathy - Respiratory Exam Respiratory Exam: Decreased Breath Sounds - Cardiovascular Exam Cardiovascular Exam: REGULAR RHYTHM, +S1, +S2 - GI/Abdominal Exam GI & Abdominal Exam: Soft, Diminished Bowel Sounds - Rectal Exam Rectal Exam: Deferred Assessment and Plan (1) Kidney stones Status: Acute (2) UTI (urinary tract infection) Status: Acute
[2017-08-02 19:45] LABS: BASO # 0.1 K/uL (0.0-0.2); BASO % 1.1 % (0.0-2.0); EOS # 0.5 K/uL (0.0-0.7); EOS % 5.6 % (0.0-4.0); HEMOGLOBIN 12.4 g/dL (12.0-18.0); LYMPH # 1.4 K/uL (1.0-4.3); MEAN CELL VOLUME 86.6 fL (80.0-94.0); MEAN CORPUSCULAR HEMOGLOBIN 28.4 pg (27.0-31.0); MEAN CORPUSCULAR HGB CONC 32.8 g/dL (33.0-37.0); MONO % 10.3 % (0.0-10.0); NEUT # 6.5 K/uL (1.8-7.0); RBC 4.38 Mil/uL (4.40-5.90); RED CELL DISTRIBUTION WIDTH 14.8 % (11.5-14.5); WHITE BLOOD COUNT 9.6 K/uL (4.8-10.8)
[2017-08-02 20:07] LABS: ALB/GLOB RATIO 0.9 (1.0-2.1); ALBUMIN 3.5 g/dL (3.5-5.0); ALT/SGPT 19 U/L (21-72); AST/SGOT 15 U/L (17-59); BLOOD UREA NITROGEN 11 mg/dL (9-20); CALCIUM 8.6 mg/dl (8.6-10.4); GFR AFRICAN-AMERICAN > 60; GFR NON-AFRICAN AMERICAN > 60
[2017-08-03] MEDS: PENICILLAMINE 250 MG PO SCH ×4 (00:09→17:38)
[2017-08-03] MEDS: Piperacill/Tazo 3.375gm in Dex 3.375 GM/50 ML BAG IVPB SCH ×3 (04:36→19:40)
--- NOTE | 2017-08-03 14:28 | CP.PCM.PN ---
Subjective - Date & Time of Evaluation Date of Evaluation: 08/03/17 Time of Evaluation: 08:20 - Subjective Subjective: clinically same Objective - Vital Signs/Intake and Output Vital Signs (last 24 hours): Temp Pulse Resp BP Pulse Ox 97.5 F L 73 20 125/84 96 08/03/17 07:28 08/03/17 07:28 08/03/17 07:28 08/03/17 07:28 08/03/17 07:28 Intake and Output: 08/03/17 08/03/17 06:59 18:59 Intake Total 950 Output Total 1300 Balance -350 - Medications Medications: Current Medications Famotidine (Pepcid) 40 mg PO DAILY [facility] Last Admin: 08/03/17 09:09 Dose: 40 mg Home Med (Patient's Own Medication) 1 tab PO Q6 [facility] Last Admin: 08/03/17 11:16 Dose: 1 tab Gentamicin Sulfate 80 mg/ (Sodium Chloride) 102 mls @ 100 mls/hr IVPB Q24H CAROL PRN Reason: Protocol Last Admin: 08/02/17 17:52 Dose: 100 mls/hr Piperacillin Sod/Tazobactam Sod (Zosyn 3.375 Gm Iv Premix) 3.375 gm in 50 mls @ 100 mls/hr IVPB Q8H [facility] PRN Reason: Protocol Last Admin: 08/03/17 11:14 Dose: 100 mls/hr Morphine Sulfate (Morphine) 2 mg IVP Q4H PRN PRN Reason: Pain, severe (8-10) Last Admin: 08/03/17 11:50 Dose: 2 mg Ondansetron HCl (Zofran Inj) 4 mg IVP DAILY@ONCE PRN PRN Reason: nausea Last Admin: 08/02/17 19:03 Dose: 4 mg Tramadol HCl (Ultram) 50 mg PO Q6H PRN PRN Reason: Pain, moderate (4-7) Last Admin: 07/31/17 22:33 Dose: 50 mg - Labs Labs: 08/02/17 19:40 08/02/17 19:40 PT 14.9 SECONDS (9.7-12.2) H 07/25/17 06:52 INR 1.4 07/25/17 06:52 - Constitutional Appears: Well - Head Exam Head Exam: ATRAUMATIC, NORMAL INSPECTION, NORMOCEPHALIC - Eye Exam Eye Exam: EOMI, Normal appearance, PERRL Pupil Exam: NORMAL ACCOMODATION, PERRL - ENT Exam ENT Exam: Mucous Membranes Moist, Normal Exam - Neck Exam Neck Exam: Full ROM, Normal Inspection. absent: Lymphadenopathy - Respiratory Exam Respiratory Exam: Decreased Breath Sounds - Cardiovascular Exam Cardiovascular Exam: REGULAR RHYTHM, +S1, +S2 - GI/Abdominal Exam GI & Abdominal Exam: Soft, Diminished Bowel Sounds - Rectal Exam Rectal Exam: Deferred Assessment and Plan (1) Kidney stones Status: Acute (2) UTI (urinary tract infection) Status: Acute - Assessment and Plan (Free Text) Plan: IV gentamicin IV Zosyn Discharge planning Wound care Status post surgery by urologist As ordered
--- NOTE | 2017-08-03 14:53 | CP.PCM.PN ---
Subjective - Date & Time of Evaluation Date of Evaluation: 08/03/17 Time of Evaluation: 07:00 - Subjective Subjective: afeb on zosyn iv rx in progress Objective - Vital Signs/Intake and Output Vital Signs (last 24 hours): Temp Pulse Resp BP Pulse Ox 97.5 F L 73 20 125/84 96 08/03/17 07:28 08/03/17 07:28 08/03/17 07:28 08/03/17 07:28 08/03/17 07:28 Intake and Output: 08/03/17 08/03/17 06:59 18:59 Intake Total 950 350 Output Total 1300 900 Balance -350 -550 - Medications Medications: Current Medications Famotidine (Pepcid) [address] [facility] Last Admin: 08/03/17 09:09 Dose: 40 mg Home Med (Patient's Own Medication) [address] [facility] Last Admin: 08/03/17 11:16 Dose: 1 tab Gentamicin Sulfate 80 mg/ (Sodium Chloride) 102 mls @ 100 mls/hr IVPB Q24H [facility] PRN Reason: Protocol Last Admin: 08/02/17 17:52 Dose: 100 mls/hr Piperacillin Sod/Tazobactam Sod (Zosyn 3.375 Gm Iv Premix) 3.375 gm in 50 mls @ 100 mls/hr IVPB Q8H [facility] PRN Reason: Protocol Last Admin: 08/03/17 11:14 Dose: 100 mls/hr Morphine Sulfate (Morphine) 2 mg IVP Q4H PRN PRN Reason: Pain, severe (8-10) Last Admin: 08/03/17 11:50 Dose: 2 mg Ondansetron HCl (Zofran Inj) 4 mg IVP DAILY@ONCE PRN PRN Reason: nausea Last Admin: 08/02/17 19:03 Dose: 4 mg Tramadol HCl (Ultram) 50 mg PO Q6H PRN PRN Reason: Pain, moderate (4-7) Last Admin: 07/31/17 22:33 Dose: 50 mg - Labs Labs: 08/02/17 19:40 08/02/17 19:40 PT 14.9 SECONDS (9.7-12.2) H 07/25/17 06:52 INR 1.4 07/25/17 06:52 Assessment and Plan (1) Kidney stones Status: Acute (2) UTI (urinary tract infection) Status: Acute
[2017-08-04] MEDS: PENICILLAMINE 250 MG PO SCH ×4 (00:14→17:19)
[2017-08-04] MEDS: Piperacill/Tazo 3.375gm in Dex 3.375 GM/50 ML BAG IVPB SCH ×3 (04:00→19:13)
--- NOTE | 2017-08-04 09:41 | CP.PCM.PN ---
Addendum entered and electronically signed by Rossy Fuchs DO 08/04/17 13:42: Per Dr. Burgos will need abx for 7 more days. Original Note: <Rossy Fuchs - Last Filed: 08/04/17 10:29> Subjective - Date & Time of Evaluation Date of Evaluation: 08/04/17 Time of Evaluation: 08:00 - Subjective Subjective: PGy2 progress note for Dr. Glaser: Pt seen and examined at bedside. No acute events overnight. Pt is laying in bed and states that he comfortable. Denies having any abd pain, N/V/d/C, F/C. Objective - Vital Signs/Intake and Output Vital Signs (last 24 hours): Temp Pulse Resp BP Pulse Ox 98.0 F 79 20 115/71 97 08/04/17 08:05 08/04/17 08:05 08/04/17 08:05 08/04/17 08:05 08/04/17 08:05 Intake and Output: 08/04/17 08/04/17 06:59 18:59 Intake Total 350 Output Total 700 650 Balance -350 -650 - Medications Medications: Current Medications Famotidine (Pepcid) 40 mg PO DAILY [facility] Last Admin: 08/04/17 09:06 Dose: 40 mg Home Med (Patient's Own Medication) 1 tab PO Q6 [facility] Last Admin: 08/04/17 06:16 Dose: 1 tab Gentamicin Sulfate 80 mg/ (Sodium Chloride) 102 mls @ 100 mls/hr IVPB Q24H [facility] PRN Reason: Protocol Last Admin: 08/03/17 15:33 Dose: 100 mls/hr Piperacillin Sod/Tazobactam Sod (Zosyn 3.375 Gm Iv Premix) 3.375 gm in 50 mls @ 100 mls/hr IVPB Q8H [facility] PRN Reason: Protocol Last Admin: 08/04/17 04:00 Dose: 100 mls/hr Morphine Sulfate (Morphine) 2 mg IVP Q4H PRN PRN Reason: Pain, severe (8-10) Last Admin: 08/04/17 02:31 Dose: 2 mg Ondansetron HCl (Zofran Inj) 4 mg IVP DAILY@ONCE PRN PRN Reason: nausea Last Admin: 08/02/17 19:03 Dose: 4 mg Tramadol HCl (Ultram) 50 mg PO Q6H PRN PRN Reason: Pain, moderate (4-7) Last Admin: 07/31/17 22:33 Dose: 50 mg - Labs Labs: 08/02/17 19:40 08/02/17 19:40 PT 14.9 SECONDS (9.7-12.2) H 07/25/17 06:52 INR 1.4 07/25/17 06:52 - Constitutional Appears: Non-toxic, No Acute Distress - Head Exam Head Exam: ATRAUMATIC, NORMAL INSPECTION - Eye Exam Eye Exam: EOMI - Respiratory Exam Respiratory Exam: Clear to Ausculation Bilateral, NORMAL BREATHING PATTERN - Cardiovascular Exam Cardiovascular Exam: REGULAR RHYTHM, +S1, +S2 - GI/Abdominal Exam GI & Abdominal Exam: Soft, Normal Bowel Sounds. 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 CT of abd/ pelvis showed multiple kidney stones. 1. Urolithiasis - s/p cysto right pyelogram, repositioning of old right stent and insertion of right ureteral stent. - Dr. Sanchez is primary on the case - Ultram prn pain 2. 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 Leukocytosis -Resolved 5. Stage III sacral pressure ulcer - Wound cultures shows Proteus and Enterococcus - Pt will require termite control service representative Abx. PICC placed. - Zosyn 3.375 gm IVPB Q8 hours - Gentamicin 80mg IVPB Qdaily - Patient is adamant about not going to [facility]. Patient will go home with skilled nursinr for abx infusions - ID, Dr. Burgos is consulted 6. GI/DVT ppx - scds - Pepcid 40mg PO daily - Zofran prn - lovenox on hold in case of procedure All orders and management per Dr. Glaser <Raymundo Glaser S - Last Filed: 08/04/17 23:34> Objective - Vital Signs/Intake and Output Vital Signs (last 24 hours): Temp Pulse Resp BP Pulse Ox 97.7 F 76 20 112/72 98 08/04/17 15:00 08/04/17 15:00 08/04/17 15:00 08/04/17 15:00 08/04/17 15:00 Intake and Output: 08/04/17 08/05/17 18:59 06:59 Intake Total 150 50 Output Total 1250 Balance -1100 50 - Medications Medications: Current Medications Famotidine (Pepcid) 40 mg PO DAILY [facility] Last Admin: 08/04/17 09:06 Dose: 40 mg Home Med (Patient's Own Medication) 1 tab PO Q6 [facility] Last Admin: 08/04/17 17:19 Dose: 1 tab Piperacillin Sod/Tazobactam Sod (Zosyn 3.375 Gm Iv Premix) 3.375 gm in 50 mls @ 100 mls/hr IVPB Q8H [facility] PRN Reason: Protocol Last Admin: 08/04/17 19:13 Dose: 100 mls/hr Morphine Sulfate (Morphine) 2 mg IVP Q4H PRN PRN Reason: Pain, severe (8-10) Last Admin: 08/04/17 19:15 Dose: 2 mg Ondansetron HCl (Zofran Inj) 4 mg IVP DAILY@ONCE PRN PRN Reason: nausea Last Admin: 08/02/17 19:03 Dose: 4 mg Tramadol HCl (Ultram) 50 mg PO Q6H PRN PRN Reason: Pain, moderate (4-7) Last Admin: 07/31/17 22:33 Dose: 50 mg - Labs Labs: 08/04/17 09:49 08/04/17 09:49 PT 14.9 SECONDS (9.7-12.2) H 07/25/17 06:52 INR 1.4 07/25/17 06:52 Assessment and Plan (1) Kidney stones Status: Acute (2) UTI (urinary tract infection) Status: Acute Attending/Attestation - Attestation I have personally seen and examined this patient.: Yes I have fully participated in the care of the patient.: Yes I have reviewed all pertinent clinical information, including history, physical exam and plan: Yes Notes (Text): 08/04/17 23:33 case seen and dCarliew staff and resident, concurred with finding and management..
[2017-08-04 09:52] LABS: BASO % 0.3 % (0.0-2.0); EOS # 0.6 K/uL (0.0-0.7); EOS % 6.6 % (0.0-4.0); HEMOGLOBIN 12.3 g/dL (12.0-18.0); LYMPH # 1.9 K/uL (1.0-4.3); LYMPH % 21.1 % (20.0-40.0); MEAN CELL VOLUME 86.7 fL (80.0-94.0); MEAN CORPUSCULAR HEMOGLOBIN 28.9 pg (27.0-31.0); MEAN CORPUSCULAR HGB CONC 33.4 g/dL (33.0-37.0); MEAN PLATELET VOLUME 8.8 fL (7.2-11.7); MONO # 0.7 K/uL (0.0-0.8); MONO % 7.9 % (0.0-10.0); NEUT # 5.7 K/uL (1.8-7.0); NEUT % 64.1 % (50.0-75.0); NRBC % 0.1 % (0.0-2.0); RBC 4.25 Mil/uL (4.40-5.90); RED CELL DISTRIBUTION WIDTH 14.8 % (11.5-14.5); WHITE BLOOD COUNT 8.9 K/uL (4.8-10.8)
[2017-08-04 10:08] LABS: ALB/GLOB RATIO 0.9 (1.0-2.1); ALBUMIN 3.6 g/dL (3.5-5.0); ALT/SGPT 18 U/L (21-72); AST/SGOT 16 U/L (17-59); BLOOD UREA NITROGEN 13 mg/dL (9-20); CALCIUM 8.7 mg/dl (8.6-10.4); GFR AFRICAN-AMERICAN > 60; GFR NON-AFRICAN AMERICAN > 60
--- NOTE | 2017-08-04 11:20 | PCM.URO ---
Urology Progress Note - General General: Tolerating Diet - Subjective Abdominal Pain: No Flank Pain: No Voiding Well: No (catheter in place) Hematuria: No Chest Pain: No Fever & Chills: No - Objective Lab Results Last 24 Hours: Laboratory Results - last 24 hr 08/04/17 08/04/17 09:49 09:49 WBC 8.9 RBC 4.25 L Hgb 12.3 Hct 36.9 MCV 86.7 MCH 28.9 MCHC 33.4 RDW 14.8 H Plt Count 270 MPV 8.8 Neut % (Auto) 64.1 Lymph % (Auto) 21.1 Pacific % (Auto) 7.9 Eos % (Auto) 6.6 H Baso % (Auto) 0.3 Neut # (Auto) 5.7 Lymph # (Auto) 1.9 [place] # (Auto) 0.7 Eos # (Auto) 0.6 Baso # (Auto) 0.0 Sodium 139 Potassium 3.3 L Chloride 104 Carbon Dioxide 25 Anion Gap 14 BUN 13 Creatinine 1.3 Est GFR ( Amer) > 60 Est GFR (Non-Af Amer) > 60 Random Glucose 121 H Calcium 8.7 Magnesium 1.6 Total Bilirubin 0.9 AST 16 L ALT 18 L Alkaline Phosphatase 58 Total Protein 7.6 Albumin 3.6 Globulin 4.1 H Albumin/Globulin Ratio 0.9 L Intake & Output: Intake & Output 08/03/17 08/04/17 08/04/17 18:59 06:59 18:59 Intake Total 450 350 Output Total 900 700 650 Balance -450 -350 -650 Intake: Intake, IV Amount 150 50 Right Upper arm 150 50 Oral 300 300 Output: Urine 900 700 650 Urethral (Sanchez) 900 700 650 Other: # Bowel Movements 1 1 Vital Signs: Vital Signs - 24 hr 08/03/17 08/03/17 08/03/17 15:08 18:00 22:00 Temperature 98.0 F Pulse Rate 82 82 82 Respiratory 20 16 Rate Blood Pressure 127/80 123/80 120/70 O2 Sat by Pulse 95 Oximetry 08/04/17 08/04/17 00:00 08:05 Temperature 97.7 F 98.0 F Pulse Rate 89 79 Respiratory 20 20 Rate Blood Pressure 124/79 115/71 O2 Sat by Pulse 95 97 Oximetry - Physical Exam Abdominal Exam: Soft, Non-Tender, Non-Distended (obese) Bowel Sounds: Normal Back: No CVA Tenderness Genitalia: Without Inflammation Urinary Catheter Draining Well: Yes Urine Color: Clear, Yellow - Plan Catheter Care: Yes Intake & Output: Yes Additional Information: Imp: urologically stable. urolithiasis. Stent in place - Date & Time of Note Date: 08/04/17 Time: 09:40
[2017-08-04] MEDS ORDERED: Magnesium Sulfate 1 gm in D5W 1 GM/100 ML BAG IVPB SCH (13:15)
[2017-08-04] MEDS ORDERED: Potassium Chloride 20 mEq ER Tab PO ONE (13:15)
--- NOTE | 2017-08-04 17:56 | CP.PCM.PN ---
Subjective - Date & Time of Evaluation Date of Evaluation: 08/04/17 Time of Evaluation: 08:20 - Subjective Subjective: clinically same Objective - Vital Signs/Intake and Output Vital Signs (last 24 hours): Temp Pulse Resp BP Pulse Ox 97.7 F 76 20 112/72 98 08/04/17 15:00 08/04/17 15:00 08/04/17 15:00 08/04/17 15:00 08/04/17 15:00 Intake and Output: 08/04/17 08/04/17 06:59 18:59 Intake Total 350 150 Output Total 700 1250 Balance -350 -1100 - Medications Medications: Current Medications Famotidine (Pepcid) 40 mg PO DAILY [facility] Last Admin: 08/04/17 09:06 Dose: 40 mg Home Med (Patient's Own Medication) 1 tab PO Q6 [facility] Last Admin: 08/04/17 17:19 Dose: 1 tab Piperacillin Sod/Tazobactam Sod (Zosyn 3.375 Gm Iv Premix) 3.375 gm in 50 mls @ 100 mls/hr IVPB Q8H [facility] PRN Reason: Protocol Last Admin: 08/04/17 12:38 Dose: 100 mls/hr Morphine Sulfate (Morphine) 2 mg IVP Q4H PRN PRN Reason: Pain, severe (8-10) Last Admin: 08/04/17 13:19 Dose: 2 mg Ondansetron HCl (Zofran Inj) 4 mg IVP DAILY@ONCE PRN PRN Reason: nausea Last Admin: 08/02/17 19:03 Dose: 4 mg Tramadol HCl (Ultram) 50 mg PO Q6H PRN PRN Reason: Pain, moderate (4-7) Last Admin: 07/31/17 22:33 Dose: 50 mg - Labs Labs: 08/04/17 09:49 08/04/17 09:49 PT 14.9 SECONDS (9.7-12.2) H 07/25/17 06:52 INR 1.4 07/25/17 06:52 - Constitutional Appears: Well - Head Exam Head Exam: ATRAUMATIC, NORMAL INSPECTION, NORMOCEPHALIC - Eye Exam Eye Exam: EOMI, Normal appearance, PERRL Pupil Exam: NORMAL ACCOMODATION, PERRL - ENT Exam ENT Exam: Mucous Membranes Moist, Normal Exam - Neck Exam Neck Exam: Full ROM, Normal Inspection. absent: Lymphadenopathy - Respiratory Exam Respiratory Exam: Decreased Breath Sounds - Cardiovascular Exam Cardiovascular Exam: REGULAR RHYTHM, +S1, +S2 - GI/Abdominal Exam GI & Abdominal Exam: Soft, Diminished Bowel Sounds - Rectal Exam Rectal Exam: Deferred Assessment and Plan (1) Kidney stones Status: Acute (2) UTI (urinary tract infection) Status: Acute - Assessment and Plan (Free Text) Plan: IV antibiotic Wound [facility] follow-up Medicine as ordered Patient advised to walk around as patient does not have much nausea patient claims he can walk around but does not walk around because of the nausea patient knows about the ulcer that patient has This is a 42 yo male with past medical history of nephrolithiasis, morbid obesity, 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 CT of abd/ pelvis showed multiple kidney stones. 1. Urolithiasis - s/p cysto right pyelogram, repositioning of old right stent and insertion of right ureteral stent. - Dr. Sanchez is primary on the case - Ultram prn pain 2. 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 Leukocytosis -Resolved 5. Stage III sacral pressure ulcer - Wound cultures shows Proteus and Enterococcus - Pt will require termite technician Abx. PICC placed. - Zosyn 3.375 gm IVPB Q8 hours - Gentamicin 80mg IVPB Qdaily - Patient is adamant about not going to [facility]. Patient will go home with skilled nursinr for abx infusions - ID, Dr. Burgos is consulted 6. GI/DVT ppx - scds - Pepcid 40mg PO daily - Zofran prn - lovenox on hold in case of procedure
[2017-08-05] MEDS: PENICILLAMINE 250 MG PO SCH ×4 (00:30→22:32)
[2017-08-05] MEDS: Piperacill/Tazo 3.375gm in Dex 3.375 GM/50 ML BAG IVPB SCH ×3 (03:02→19:18)
[2017-08-05 07:21] LABS: BASO % 0.2 % (0.0-2.0); EOS # 0.6 K/uL (0.0-0.7); EOS % 5.8 % (0.0-4.0); HEMOGLOBIN 12.7 g/dL (12.0-18.0); LYMPH # 2.2 K/uL (1.0-4.3); LYMPH % 21.5 % (20.0-40.0); MEAN CELL VOLUME 87.1 fL (80.0-94.0); MEAN CORPUSCULAR HEMOGLOBIN 28.2 pg (27.0-31.0); MEAN CORPUSCULAR HGB CONC 32.4 g/dL (33.0-37.0); MEAN PLATELET VOLUME 8.9 fL (7.2-11.7); MONO # 0.8 K/uL (0.0-0.8); MONO % 7.2 % (0.0-10.0); NEUT # 6.8 K/uL (1.8-7.0); NEUT % 65.3 % (50.0-75.0); RBC 4.49 Mil/uL (4.40-5.90); RED CELL DISTRIBUTION WIDTH 14.8 % (11.5-14.5); WHITE BLOOD COUNT 10.4 K/uL (4.8-10.8)
[2017-08-05 07:41] LABS: ALB/GLOB RATIO 0.9 (1.0-2.1); ALBUMIN 3.7 g/dL (3.5-5.0); ALT/SGPT 16 U/L (21-72); AST/SGOT 19 U/L (17-59); BLOOD UREA NITROGEN 10 mg/dL (9-20); CALCIUM 8.7 mg/dl (8.6-10.4); GFR AFRICAN-AMERICAN > 60; GFR NON-AFRICAN AMERICAN > 60
[2017-08-05 09:42] VITALS: RESP 20
--- NOTE | 2017-08-05 09:48 | CP.PCM.PN ---
Subjective - Date & Time of Evaluation Date of Evaluation: 08/05/17 Time of Evaluation: 07:15 - Subjective Subjective: PGY3 progress note for Dr. Glaser: Pt seen and examined at bedside. No acute events overnight. Pt is lying in bed comfortably. Pain is well managed s/p procedure. Denies fevers, chills, chest pain, SOB, abdominal pain, n/v, d/c, or any additional complaints. He is asking to go home. --- Patient is stable for discharge per Dr. Rhett Sanchez and Dr. Lester Glaser. Patient should resume all medications as outlined in this document. Additionally, patient should take the new medications listed below (scripts provided). 1. Please make an appointment and follow up with your Primary Doctor within one week of discharge. 2. Please make an appointment and follow up with Dr. Tristen Sanchez within one week of discharge. 3. You have a sacral ulcer. We are recommending home care by detention. Clean with normal saline. Recommending medihoney to cover base of ulcer, then pack with bulky dressing to be done daily. Cover with gauze and tape. Patient should return to ED immediately if symptoms return or worsen. Instructions discussed with patient who understood and agreed. New Medication: Zosyn 3.375Gm IVPB Q8H PICC in place. Continue IV Abx for 7 days. Pepcid 20mg PO BID #60 Objective - Vital Signs/Intake and Output Vital Signs (last 24 hours): Temp Pulse Resp BP Pulse Ox 97.8 F 80 20 119/70 95 08/05/17 08:00 08/05/17 08:00 08/05/17 08:00 08/05/17 08:00 08/05/17 08:00 Intake and Output: 08/05/17 08/05/17 06:59 18:59 Intake Total 50 Output Total 1375 Balance -1325 - Medications Medications: Current Medications Famotidine (Pepcid) 40 mg PO DAILY [facility] Last Admin: 08/04/17 09:06 Dose: 40 mg Home Med (Patient's Own Medication) 1 tab PO Q6 [facility] Last Admin: 08/05/17 05:24 Dose: 1 tab Piperacillin Sod/Tazobactam Sod (Zosyn 3.375 Gm Iv Premix) 3.375 gm in 50 mls @ 100 mls/hr IVPB Q8H [facility] PRN Reason: Protocol Last Admin: 08/05/17 03:02 Dose: 100 mls/hr Morphine Sulfate (Morphine) 2 mg IVP Q4H PRN PRN Reason: Pain, severe (8-10) Last Admin: 08/05/17 07:11 Dose: 2 mg Ondansetron HCl (Zofran Inj) 4 mg IVP DAILY@ONCE PRN PRN Reason: nausea Last Admin: 08/02/17 19:03 Dose: 4 mg Tramadol HCl (Ultram) 50 mg PO Q6H PRN PRN Reason: Pain, moderate (4-7) Last Admin: 07/31/17 22:33 Dose: 50 mg - Labs Labs: 08/05/17 07:07 08/05/17 07:07 PT 14.9 SECONDS (9.7-12.2) H 07/25/17 06:52 INR 1.4 07/25/17 06:52 - Additional Findings Additional findings: - Constitutional Appears: Non-toxic, No Acute Distress - Head Exam Head Exam: ATRAUMATIC, NORMAL INSPECTION - Eye Exam Eye Exam: EOMI - Respiratory Exam Respiratory Exam: Clear to Ausculation Bilateral, NORMAL BREATHING PATTERN - Cardiovascular Exam Cardiovascular Exam: REGULAR RHYTHM, +S1, +S2 - GI/Abdominal Exam GI & Abdominal Exam: Soft, Normal Bowel Sounds. 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 CT of abd/ pelvis showed multiple kidney stones. 1. Urolithiasis - s/p cysto right pyelogram, repositioning of old right stent and insertion of right ureteral stent. - Dr. Sanchez is primary on the case - Ultram prn pain 2. 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 Leukocytosis -Resolved 5. Stage III sacral pressure ulcer - Wound cultures shows Proteus and Enterococcus - Pt will require termite control service representative Abx. PICC placed. - Zosyn 3.375 gm IVPB Q8 hours - Gentamicin 80mg IVPB Qdaily - Patient is adamant about not going to [facility]. Patient will go home with skilled nursinr for abx infusions - ID, Dr. Burgos is consulted 6. GI/DVT ppx - scds - Pepcid 40mg PO daily - Zofran prn - lovenox on hold in case of procedure All orders and management per Dr. Glaser
[2017-08-05] MEDS ORDERED: Potassium Chloride 20 mEq ER Tab PO ONE (10:00)
[2017-08-05 16:03] VITALS: BP 116/73; PULSE 88; TEMP 97.9; O2SAT 96
--- NOTE | 2017-08-05 17:07 | CP.PCM.PN ---
Subjective - Date & Time of Evaluation Date of Evaluation: 08/05/17 Time of Evaluation: 08:00 - Subjective Subjective: clinically same Objective - Vital Signs/Intake and Output Vital Signs (last 24 hours): Temp Pulse Resp BP Pulse Ox 97.9 F 88 20 116/73 96 08/05/17 16:00 08/05/17 16:00 08/05/17 16:00 08/05/17 16:00 08/05/17 16:00 Intake and Output: 08/05/17 08/05/17 06:59 18:59 Intake Total 50 400 Output Total 1375 600 Balance -1325 -200 - Medications Medications: Current Medications Famotidine (Pepcid) 40 mg PO DAILY [facility] Last Admin: 08/05/17 10:44 Dose: 40 mg Home Med (Patient's Own Medication) 1 tab PO Q6 [facility] Last Admin: 08/05/17 11:51 Dose: 1 tab Piperacillin Sod/Tazobactam Sod (Zosyn 3.375 Gm Iv Premix) 3.375 gm in 50 mls @ 100 mls/hr IVPB Q8H [facility] PRN Reason: Protocol Last Admin: 08/05/17 11:51 Dose: 100 mls/hr Morphine Sulfate (Morphine) 2 mg IVP Q4H PRN PRN Reason: Pain, severe (8-10) Last Admin: 08/05/17 16:48 Dose: 2 mg Ondansetron HCl (Zofran Inj) 4 mg IVP DAILY@ONCE PRN PRN Reason: nausea Last Admin: 08/02/17 19:03 Dose: 4 mg Tramadol HCl (Ultram) 50 mg PO Q6H PRN PRN Reason: Pain, moderate (4-7) Last Admin: 07/31/17 22:33 Dose: 50 mg - Labs Labs: 08/05/17 07:07 08/05/17 07:07 PT 14.9 SECONDS (9.7-12.2) H 07/25/17 06:52 INR 1.4 07/25/17 06:52 - Constitutional Appears: Well - Head Exam Head Exam: ATRAUMATIC, NORMAL INSPECTION, NORMOCEPHALIC - Eye Exam Eye Exam: EOMI, Normal appearance, PERRL Pupil Exam: NORMAL ACCOMODATION, PERRL - ENT Exam ENT Exam: Mucous Membranes Moist, Normal Exam - Neck Exam Neck Exam: Full ROM, Normal Inspection. absent: Lymphadenopathy - Respiratory Exam Respiratory Exam: Decreased Breath Sounds - Cardiovascular Exam Cardiovascular Exam: REGULAR RHYTHM, +S1, +S2 - GI/Abdominal Exam GI & Abdominal Exam: Soft, Diminished Bowel Sounds - Rectal Exam Rectal Exam: Deferred Assessment and Plan (1) Kidney stones Status: Acute (2) UTI (urinary tract infection) Status: Acute
== END 2017-08-06 00:05 | disposition home or self-care (01) | DRG 567 ==
LOC: C.SDS 10:38 → C.9E 15:01 → C.5S 17:17
PROVIDERS: ADMIT Urology; ATTEND Urology
PROC: 0T768DZ Dilation of Right Ureter with Intraluminal Device, Via Natural or Artificial Opening Endoscopic (ICD-10-PCS; 2017-07-29)
PROC: BT1DZZZ Fluoroscopy of Right Kidney, Ureter and Bladder (ICD-10-PCS; 2017-07-29)
PROC: 0TP98DZ Removal of Intraluminal Device from Ureter, Via Natural or Artificial Opening Endoscopic (ICD-10-PCS; principal; 2017-07-29 14:00)
PROC: 02HV33Z Insertion of Infusion Device into Superior Vena Cava, Percutaneous Approach (ICD-10-PCS; 2017-08-01)
DX: N20.0 Calculus of kidney (principal); L89.153 Pressure ulcer of sacral region, stage 3; N13.30 Unspecified hydronephrosis; N39.0 Urinary tract infection, site not specified; N20.1 Calculus of ureter; R31.9 Hematuria, unspecified; E66.01 Morbid (severe) obesity due to excess calories; Z68.41 Body mass index [BMI] 40.0-44.9, adult; R33.9 Retention of urine, unspecified; N35.9 Urethral stricture, unspecified; E83.01 Wilson's disease; E78.5 Hyperlipidemia, unspecified; Z74.01 Bed confinement status

== ENCOUNTER 2017-08-14 09:04 | Day surgery (SDC) | payer OTHER ==
[2017-08-14 09:44] VITALS: BMI 44.4
[2017-08-14] MEDS ORDERED: cefTRIAXone IV 1 gm in Dextros 50 ML IVPB ONE (10:20)
[2017-08-14] MEDS ORDERED: Iohexol 240 (50 ml) ONE (10:21)
[2017-08-14] MEDS ORDERED: Lidocaine 2% Jelly (Uro-Jet) ONE (10:21)
[2017-08-14] MEDS ORDERED: Midazolam 2 MG/2 ML VIAL ONE (10:28)
[2017-08-14] MEDS ORDERED: Propofol 10 mg/ml Inj (20 ML) ONE (10:28)
[2017-08-14] MEDS ORDERED: Oxycodone/Acetaminophen 5/325 mg Tab PO PRN (11:48)
[2017-08-14 12:42] VITALS: BP 125/66; PULSE 83; RESP 16; TEMP 97.3; O2SAT 97
--- NOTE | 2017-08-14 16:37 | RAD ---
HISTORY: BILAT UROLITHIASIS COMPARISON: 07/31/2017 FINDINGS: BOWEL: Mild right stool retention Double-J right ureteral stent. Interval removal of 1 of the prior right 2 ureteral double-J stents. IVC filter at L 2 3 level as before. The large coalescent left renal staghorn type calculus burden is renoted the prior right renal calculi not seen as such in the most upper pole right kidney not visually included on this exam. Distal core old right hemipelvis at inferred bladder level no interval ureteral calculi along this single indwelling double-J right ureteral stent noted. BONES: The gross deformity of the right hip is as before OTHER FINDINGS: None. IMPRESSION: Interval changes in double-J right ureteral stent status. One stent removed. . Right sided calculus burden less than before. Full extent of right upper renal pole not visually included on this exam. Similar large left renal calculus burden
--- NOTE | 2017-08-14 16:38 | RAD ---
PROCEDURE: HISTORY: As above COMPARISON: None TECHNIQUE: Total fluoroscopic time utilized during the procedure: 14.0 seconds ; 0.94678 mGy cm 2 FINDINGS: Submitted images from the current procedure: 10 Please refer to the physician's notes performing the procedure. IMPRESSION: Less than 1 hour fluoroscopic time utilized during performance of the procedure
--- NOTE | 2017-08-15 00:35 | OP ---
PROCEDURE DATE: 08/14/2017 PREOPERATIVE DIAGNOSES: Bilateral heavy stone burden, hematuria, intermittent pain. POSTOPERATIVE DIAGNOSES: Bilateral heavy stone burden, hematuria, intermittent pain. PROCEDURES: Removal of Sanchez catheter, cystoscopy, removal of right double-J stent, right ureteroscopy, right renoscopy, right retrograde pyelogram. COMPLICATIONS: There were no complications. BLOOD LOSS: Less than 10 mL. FINDINGS: 1. The urethra looks much better. There are still abnormalities, but it is able to accommodate a 22 scope easily. 2. The right ureter looks good. 3. Right kidney, I am able by fluoroscopic criteria to go into almost every calyx. I do not see any big stones. There are some little tiniest 1 mm or less debris. See the KUB. The patient tolerated it without complications. The procedure is as follows. INDICATIONS: See history and physical. In brief, very pleasant gentleman here for the above procedure. We are wrapping up the right side, and eventually we plan to do the left. DESCRIPTION OF PROCEDURE: After obtaining informed consent, the patient was placed on the table. Routine monitors were placed. Time-out was called to confirm the patient and positioning. The patient was prepped in the usual sterile fashion. Time-out was called to confirm the patient and positioning. I take a lot of help moving up to get the patient in proper position. The patient was given anesthesia. Time-out was called to confirm the patient and antibiotic prophylaxis. Extra dose was given. We removed the old Sanchez catheter. We did the cystoscope under direct vision. See the pictures. I see little strands essentially pictures on page 1. Pictures 1 and 2, we could see the urethra looks nicely open. It is still little narrowed, but not pinpointed at all. We are able to get the scope in easily. (As well as in for the future, the patient does not want a catheter and does not want to do CIC. We will see how he does). The verumontanum is minimally occlusive that is on next to last picture on page 1. We identified the stent. We removed it and put a wire up to the kidney without difficulty. We put the ureteroscope up to the kidney without difficulty. All of these were confirmed fluoroscopically. I then injected little contrast just like an outline in the calices. Then with the flexible scope in place, I went to each calyx and took a couple of pictures. There is a little tiny debris that is demonstrated on page 2 and four pictures from four different calices. Basically nothing on 4 pictures on page 2 with some debris from some of the different calices. But nothing significant. The bladder was emptied. The patient tolerated the procedure without complications. 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 I have discussed further plans with the patient in terms of getting the second opinion both of the stones and the stricture and further plans to follow, but in the meantime, we definitely so far eliminate the patient's stone on the right side. No definite big visible stones. Mohamud Sanchez MD
--- NOTE | 2017-08-15 00:50 | HP ---
UROLOGY ADMISSION REASON FOR ADMISSION: Treatment of the kidney stones. Today is probably the last treatment for the right kidney stone for a while. See many previously dictated notes. HISTORY OF PRESENT ILLNESS: Mr. Boss is a very pleasant gentleman who is 42 years old. 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 He has multiple medical issues. From a urology standpoint, he came in with bilateral severe heavy stone burden. We discussed the options for percutaneous treatments as well we discussed ureteroscopy and laser lithotripsy. After all the options were discussed together, we decided to proceed with ureteroscopy and laser lithotripsy. He had multiple treatments before. There is a tremendous stone burden and done everything slowly cautiously safely. First of all, the patient had a severe urethral stricture disease and retention, which we did an IOU. In between, he has one visit. A stent was placed in another hospital on the right side. With severe renal colic and passing of the stone, but they apparently did not take the insurance there. So, he then came back to me for followup. See many previously dictated notes, but at this point, he is here for ureteroscopy and hopefully today is the last treatment on the right side. Then we are going to work on the left side in the future. We will discuss this. I have discussed with the patient various options including second opinions and trying to see if somebody will do it percutaneously. He has not been enthusiastic for this. PAST MEDICAL HISTORY: As listed. PAST SURGICAL HISTORY: As listed. REVIEW OF SYSTEMS: There are no other changes. SOCIAL HISTORY: He lives alone. 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 I also spoke to his mother several times with his permission. PHYSICAL EXAMINATION: GENERAL: No apparent distress. VITAL SIGNS: As noted in the chart. LUNGS: Clear. HEART: Normal heart sounds. ABDOMEN: Soft. GENITOURINARY: He has normal male phallus. He has a lot of smegma and an indwelling Sanchez catheter. DIAGNOSES: 1. Urethral stricture disease. 2. Urinary retention. 3. Bilateral stone disease. 4. Hematuria, hydronephrosis. PLAN: Today, we are working on the right side. The patient also has catheter. I explained to the patient that he is likely to have recurrence of the stricture, but I am happy to take it out. I did discuss with him the idea of CIC, but he says he cannot do that as well. So, we discussed the options regarding the stricture and maybe there is somebody who will repair it. I explained there are people who repair urethral stricture. We will have to just discuss that. Some of the difficulty is with the patient's ambulation. His medical doctor, . Regarding the stones, we are finishing up the right side today. We will discuss the left side in the future. Provide giving his body a break and then come back. In the interim, I am going to continue the plans as follows: 1. Today, give antibiotic prophylaxis, although he is on Zosyn already. 2. We are going to give the patient an extra dose of antibiotics. We are going to plan to remove the stent. We will do ureteroscopy, and if there are any stones left over, we are going to fragment them. ADDENDUM The procedure went well. The patient's urethra looks much better. I took multiple pictures. I am giving them to the patient directly. We were able to view the scope and go into every calyx. There was a little tiny debris that should all pass by themselves. See the operative note, but I safely took everything out. The patient tolerated the procedure well without complications. Mohamud Sanchez MD
== END 2017-08-14 14:15 | disposition home or self-care (01) ==
LOC: C.SDS 09:04
PROVIDERS: ATTEND Urology
DX: N20.0 Calculus of kidney (principal); E83.01 Wilson's disease; R31.9 Hematuria, unspecified
CPT/HCPCS: 52005; 74018; C1758; C1769; J0696; Q9966

== ENCOUNTER 2017-11-24 11:23 | Observation (INO) | payer OTHER ==
--- NOTE | 2017-11-24 11:51 | C.PDOC ---
History Of Present Illness 42 y/o male with history of Kidney Stones presents to ED sent by Dr. Sanchez for left sided Kidney stone. Patient states he has had stones for 2 years but for 2 weeks back pain is worse non relieved with Percocet. Patient reports last percocet taken was last night and denies dysuria, hematuria, fever, chills or any other associated symptoms at this time. NPO since 6pm yesterday Time Seen by Provider: 11/24/17 11:51 Chief Complaint (Nursing): Male Genitourinary History Per: Patient History/Exam Limitations: no limitations Onset/Duration Of Symptoms: Days Current Symptoms Are (Timing): Still Present Past Medical History Reviewed: Historical Data, Nursing Documentation, Vital Signs Vital Signs: Last Vital Signs Temp 98.3 F 11/24/17 11:27 Pulse 86 11/24/17 11:27 Resp 18 11/24/17 11:27 BP 108/75 11/24/17 11:27 Pulse Ox 99 11/24/17 11:27 - Medical History PMH: Back Problems, Gastritis, Kidney Stones, Chronic Kidney Disease Surgical History: Back Surgery - [facility] Procedures DILATION OF RIGHT URETER WITH INTRALUMINAL DEVICE, ENDO (07/24/17) DILATION OF URETHRA WITH INTRALUMINAL DEVICE, ENDO (05/29/17) FLUOROSCOPY OF RIGHT KIDNEY, URETER AND BLADDER (07/24/17) INSERTION OF INFUSION DEV INTO SUP VENA CAVA, PERC APPROACH (07/24/17) INSPECTION OF BLADDER, ENDO (05/29/17) Family History: States: No Known Family Hx - Social History Hx Alcohol Use: No - Immunization History Hx Tetanus Toxoid Vaccination: No Hx Influenza Vaccination: No Hx Pneumococcal Vaccination: No Review Of Systems Constitutional: Negative for: Fever, Chills Gastrointestinal: Negative for: Nausea, Vomiting, Abdominal Pain Genitourinary: Negative for: Dysuria, Hematuria Musculoskeletal: Positive for: Back Pain Skin: Negative for: Rash Physical Exam - Physical Exam Appears: Non-toxic, Other (In moderate distress) Skin: Warm, Dry, No Rash Head: Atraumatic, Normacephalic Eye(s): bilateral: Normal Inspection Oral Mucosa: Moist Neck: Normal ROM, Supple Cardiovascular: Rhythm Regular Respiratory: Normal Breath Sounds, No Rales, No Rhonchi, No Wheezing Gastrointestinal/Abdominal: Soft, No Tenderness, No Guarding, No Rebound, Other (Obese abdomen) Back: No CVA Tenderness Neurological/Psych: Oriented x3, Normal Speech, Normal Cognition ED Course And Treatment - Laboratory Results Result Diagrams: 11/25/17 14:14 11/25/17 14:14 ECG: Interpreted By Me, Viewed By Me ECG Rhythm: Sinus Rhythm Rate From EC (BPM) O2 Sat by Pulse Oximetry: 99 (RA) Pulse Ox Interpretation: Normal Progress - Re-Evaluation Re-evaluation Note: 11/24/17 13:23 D/W DR Rhett SANCHEZ PT RECENT DC FROM [facility] S/P SEPTIC URETERAL STONE D/W DR YUMIKO MENJIVAR [employer] WILL ADMIT Disposition - Disposition Disposition: HOSPITALIZED Disposition Time: 13:23 Condition: STABLE - Clinical Impression Clinical Impression: Ureteral calculus - Scribe Statement The provider has reviewed the documentation as recorded by the Scribrhett Stephen All medical record entries made by the Scribe were at my direction and personally dictated by me. I have reviewed the chart and agree that the record accurately reflects my personal performance of the history, physical exam, medical decision making, and the department course for this patient. I have also personally directed, reviewed, and agree with the discharge instructions and disposition.
[2017-11-24 13:59] LABS: BASO # 0.1 K/uL (0.0-0.2); BASO % 1.3 % (0.0-2.0); EOS # 0.3 K/uL (0.0-0.7); EOS % 2.9 % (0.0-4.0); HEMOGLOBIN 14.5 g/dL (12.0-18.0); LYMPH # 1.8 K/uL (1.0-4.3); LYMPH % 15.7 % (20.0-40.0); MEAN CORPUSCULAR HEMOGLOBIN 30.2 pg (27.0-31.0); MEAN CORPUSCULAR HGB CONC 32.9 g/dL (33.0-37.0); MEAN PLATELET VOLUME 8.3 fL (7.2-11.7); MONO # 0.8 K/uL (0.0-0.8); MONO % 7.5 % (0.0-10.0); NEUT # 8.2 K/uL (1.8-7.0); NEUT % 72.6 % (50.0-75.0); RBC 4.81 Mil/uL (4.40-5.90); RED CELL DISTRIBUTION WIDTH 14.4 % (11.5-14.5); WHITE BLOOD COUNT 11.3 K/uL (4.8-10.8)
[2017-11-24 14:02] LABS: MEAN CELL VOLUME 91.9 fL (80.0-94.0)
[2017-11-24 14:12] LABS: BLOOD UREA NITROGEN 12 mg/dL (9-20); CALCIUM 9.1 mg/dl (8.6-10.4); GFR NON-AFRICAN AMERICAN > 60
[2017-11-24 14:46] LABS: SQUAMOUS EPITHIAL 3 /hpf (0-5); URINE BILIRUBIN NEGATIVE (NEGATIVE); URINE BLOOD 2+ (NEGATIVE); URINE CLARITY Hazy (Clear); URINE COLOR Yellow (YELLOW); URINE GLUCOSE (UA) NORMAL (Normal); URINE LEUKOCYTE ESTERASE 3+ Leu/uL (Negative); URINE PROTEIN 1+ mg/dL (NEGATIVE); URINE UROBILINOGEN NORMAL mg/dL (0.2-1.0)
[2017-11-24] MEDS ORDERED: Morphine 4 MG/ML VIAL ONE (14:47)
[2017-11-24 14:50] LABS: URINE BACTERIA MOD (<OCC)
--- NOTE | 2017-11-24 14:50 | RAD ---
Date of service: 11/24/2017 PROCEDURE: CHEST RADIOGRAPH, 1 VIEW HISTORY: MED CLEAR COMPARISON: None available. FINDINGS: LUNGS: Poor inspiration with low lung volumes, crowded bronchovascular markings and mild bibasilar atelectasis. Mild curvilinear atelectasis and or scarring left CP angle region. PLEURA: No pneumothorax or pleural fluid seen. CARDIOVASCULAR: Study cardiomegaly in situ IVC filter within the SVC again noted unchanged from prior OSSEOUS STRUCTURES: No significant abnormalities. VISUALIZED UPPER ABDOMEN: Normal. OTHER FINDINGS: None. IMPRESSION: Poor inspiration with low lung volumes, crowded bronchovascular markings and mild bibasilar atelectasis. Mild curvilinear atelectasis and or scarring left CP angle region.
--- NOTE | 2017-11-24 16:03 | CP.PCM.HP ---
History of Present Illness - History of Present Illness History of Present Illness: Patient is a 42 year old male w/ PMHx of nephrolithiasis, Cherie's disease sent to the ED at the request of Dr. Rhett Sanchez for evaluation of left sided ureteral colic x7 days. Pt reports he was recently admitted and treated at [facility] for right sided nephrolithiasis, d/c 1 wk ago. Pt complains of left sided flank/back pain that radiates to his groin. Pt's hx is significant for stones and UTIs. Pt denies fever like symptoms, chest pain, SOB, nausea, hematuria, dysuria. PMD: Dr. Irwin PMHx: Nephrolithiasis, Cherie's Disease PSHx: ureteral,urethral sents Allergies: NKDA Meds: Pepcid 20mg po qd, Penacillamine 250mg po qd FamHx: Non-contributory SocHx: Social alcohol Present on Admission - Present on Admission Any Indicators Present on Admission: Yes Decubitus Ulcer Location: sacrum Review of Systems - Constitutional Constitutional: absent: Chills - Cardiovascular Cardiovascular: absent: Chest Pain - Respiratory Respiratory: absent: Dyspnea - Gastrointestinal Gastrointestinal: Abdominal Pain (left flank/back radiating to groin), Heartb urn. absent: Constipation, Diarrhea, Nausea - Genitourinary Genitourinary: Flank Pain, Freq UTI, Hx Renal/Bladder Calculi, Hx /Renal Surgery (stents). 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 PROCEDURE) Hx Vascular Surgery: Yes (IVC FILTER RT ARM) Other/Comment: back surgery 8 years ago. feeding tube - removed 4 years ago. right arm IVC filter placement CYSTO STENT - ANESTHESIA Hx Anesthesia: Yes Hx Anesthesia Reactions: No Hx Malignant Hyperthermia: No Meds Allergies/Adverse Reactions: Allergies Allergy/AdvReac Type Severity Reaction Status Date / Time No Known Allergies Allergy Verified 05/29/17 08:51 Physical Exam - Constitutional Appears: No Acute Distress - Head Exam Head Exam: ATRAUMATIC, NORMAL INSPECTION, NORMOCEPHALIC - Eye Exam Eye Exam: EOMI, Normal appearance - ENT Exam ENT Exam: Mucous Membranes Moist, Normal Exam - Neck Exam Neck exam: Positive for: Normal Inspection - Respiratory Exam Respiratory Exam: Clear to Auscultation Bilateral, NORMAL BREATHING PATTERN. absent: Rhonchi, Wheezes - Cardiovascular Exam Cardiovascular Exam: REGULAR RHYTHM, +S1, +S2. absent: Tachycardia - GI/Abdominal Exam GI & Abdominal Exam: Normal Bowel Sounds, Soft. absent: Distended, Tenderness - Exam Exam: absent: Bladder Distension - Extremities Exam Extremities exam: Positive for: normal inspection (atrophy). Negative for: calf tenderness, pedal edema - Back Exam Back exam: NORMAL INSPECTION - Neurological Exam Neurological exam: Alert, Oriented x3 - Psychiatric Exam Psychiatric exam: Normal Affect, Normal Mood - Skin Skin Exam: Dry, Intact, Normal Color, Warm Results - Vital Signs Recent Vital Signs: Last Vital Signs Temp 98.3 F 11/24/17 11:27 Pulse 86 11/24/17 11:27 Resp 18 11/24/17 11:27 BP 108/75 11/24/17 11:27 Pulse Ox 99 11/24/17 14:21 - Labs Result Diagrams: 11/24/17 13:56 11/24/17 13:56 Labs: Laboratory Results - last 24 hr 11/24/17 11/24/17 11/24/17 13:56 13:56 14:13 WBC 11.3 H RBC 4.81 Hgb 14.5 Hct 44.2 MCV 91.9 D MCH 30.2 MCHC 32.9 L RDW 14.4 Plt Count 326 MPV 8.3 Neut % (Auto) 72.6 Lymph % (Auto) 15.7 L [place] % (Auto) 7.5 Eos % (Auto) 2.9 Baso % (Auto) 1.3 Neut # (Auto) 8.2 H Lymph # (Auto) 1.8 [place] # (Auto) 0.8 Eos # (Auto) 0.3 Baso # (Auto) 0.1 Sodium 142 Potassium 3.8 Chloride 108 H Carbon Dioxide 20 L Anion Gap 18 BUN 12 Creatinine 0.8 Est GFR ( Amer) > 60 Est GFR (Non-Af Amer) > 60 Random Glucose 125 H Calcium 9.1 Urine Color Yellow Urine Clarity Hazy Urine pH 5.0 Ur Specific [place] 1.019 Urine Protein 1+ H Urine Glucose (UA) Normal Urine Ketones Negative Urine Blood 2+ H Urine Nitrate Positive H Urine Bilirubin Negative Urine Urobilinogen Normal Ur Leukocyte Esterase 3+ H Urine WBC (Auto) 416 H Urine RBC (Auto) 50 H Ur Squamous Epith Cells 3 Urine Bacteria Mod H Urine Yeast (Budding) Occ H Assessment & Plan - Assessment and Plan (Free Text) Assessment: 42 year old female admitted w/ left sided ureteral colic Ureteral Colic -f/u CT abd/pelvis -morphine 2mg q6 prn -Uro consult, Dr. Sanchez Per Dr. Sanchez, pt will go for cystoscopy most likely tmrw. UTI/Pyelo -f/u urine/blood cx -rocephin 1g qd -f/u CT to further eval Cherie's Dz -Penacillamine 250mg qd Sacral Wound -wound cx -wound care Ppx -Pepcid 20mg po -SCD -DVT ppx contraindicated 2/2 hematuria
[2017-11-24 16:17] LABS: INR 1.4; PROTHROMBIN TIME 15.8 SECONDS (9.7-12.2)
--- NOTE | 2017-11-24 16:17 | C.PDOC ---
Time Seen by Provider: 11/24/17 11:51 Chief Complaint (Nursing): Male Genitourinary Past Medical History Vital Signs: Last Vital Signs Temp 98.3 F 11/24/17 11:27 Pulse 86 11/24/17 11:27 Resp 18 11/24/17 11:27 BP 108/75 11/24/17 11:27 Pulse Ox 99 11/24/17 14:21 - Medical History PMH: Back Problems, Gastritis, Kidney Stones, Chronic Kidney Disease Surgical History: Back Surgery - [facility] Procedures DILATION OF RIGHT URETER WITH INTRALUMINAL DEVICE, ENDO (07/24/17) DILATION OF URETHRA WITH INTRALUMINAL DEVICE, ENDO (05/29/17) FLUOROSCOPY OF RIGHT KIDNEY, URETER AND BLADDER (07/24/17) INSERTION OF INFUSION DEV INTO SUP VENA CAVA, PERC APPROACH (07/24/17) INSPECTION OF BLADDER, ENDO (05/29/17) Family History: States: No Known Family Hx - Social History Hx Alcohol Use: No - Immunization History Hx Tetanus Toxoid Vaccination: No Hx Influenza Vaccination: No Hx Pneumococcal Vaccination: No ED Course And Treatment - Laboratory Results Result Diagrams: 11/24/17 13:56 11/24/17 13:56 O2 Sat by Pulse Oximetry: 99 (RA) Disposition - Disposition Forms: Glints (Arabic)
--- NOTE | 2017-11-24 17:37 | CT ---
Date of service: 11/24/2017 PROCEDURE: CT Abdomen and Pelvis with Oral contrast. HISTORY: stones COMPARISON: None. TECHNIQUE: Contiguous axial images of the abdomen and pelvis... Coronal and Sagittal reformats generated. Radiation dose: Total exam DLP = 1355.96 mGy-cm. This CT exam was performed using one or more of the following dose reduction techniques: Automated exposure control, adjustment of the mA and/or kV according to patient size, and/or use of iterative reconstruction technique. FINDINGS: LOWER THORAX: Bibasilar atelectasis left greater than right the the. There also appears to be trace minimal left posterior pleural thickening. Heart appears enlarged. No significant pericardial effusion. There is a small to medium size hiatal hernia with wall thickening of the distal esophagus likely due to protrusion of gastric mucosa. Esophagitis not excluded. Minimal LIVER: Liver is markedly enlarged measuring over nearly 29 cm in CC dimension. No definitive hepatic mass or collection. Mild to moderate fatty hepatic infiltration. GALLBLADDER AND BILE DUCTS: Cholelithiasis PANCREAS: Unremarkable. No mass. No ductal dilatation. SPLEEN: Unre spleen exhibits normal size and attenuation pattern without mass collection or calcification. ADRENALS: . No adrenal lesions. KIDNEYS AND URETERS: Multiple bilateral renal calculi are present within both renal collecting systems and both renal pelves with the several large calculi extending into the left renal pelvis. No evidence of tameka hydronephrosis. BLADDER: The urinary bladder is incompletely distended which in part accounts for thick-walled appearance. Muscular hypertrophy presumably contributes. Rule out cystitis REPRODUCTIVE: Unremarkable. APPENDIX: Normal appendix. BOWEL: evaluation of the bowel is somewhat limited due to the lack oral contrast material. The stomach is incompletely distended. Visualized loops of small bowel exhibit normal contour and caliber with no evidence of acute mechanical small bowel obstruction. Stool and air seen throughout the large bowel with no definitive mural wall thickening. PERITONEUM: Unremarkable. No fluid collection. No free air. LYMPH NODES: Unremarkable. No enlarged lymph nodes. VASCULATURE: Unremarkable. No aortic aneurysm. In situ IVC filter. BONES: Mild multilevel degenerative spondylosis of the thoracic spine. Note made of significant heterotopic bone changes surrounding the right hip joint with what may represent effective fusion of the acetabulum and greater trochanter. Questionable slight subluxation right femoral head. Clinical correlation recommended.. There may also be shallow left-sided acetabulum possibly representing a developmental anomaly. OTHER FINDINGS: None. IMPRESSION: Multiple bilateral renal calculi with a large collection of stones in the left renal collecting system/pelvis appeared no evidence of hydronephrosis. Urinary bladder is incompletely distended which in part accounts for thick-walled appearance. Muscular hypertrophy may contribute. Rule out cystitis. Cholelithiasis. Marked hepatomegaly with fatty hepatic infiltration. See above discussion for additional details and findings.
[2017-11-24] MEDS: Morphine 4 MG/ML VIAL IV PRN (19:50)
[2017-11-24 22:57] VITALS: BMI 41.6
[2017-11-25] MEDS: PENICILLAMINE 250 MG PO SCH ×4 (00:04→18:48)
[2017-11-25] MEDS: Morphine 4 MG/ML VIAL IV PRN ×3 (03:04→18:48)
--- NOTE | 2017-11-25 14:18 | CP.PCM.PN ---
Subjective - Date & Time of Evaluation Date of Evaluation: 11/25/17 Time of Evaluation: 09:20 - Subjective Subjective: PGY-[address] Cruz Patient is seen and examined at bedside. Patient continues to have pain in left side and back. Patient describes pain as 7/10 and is controlled with pain medications. Patient denies fevers, chills, nausea, vomiting, diarrhea or constipation. Patient denies dysuria or hematuria. Patient is planned to go for cystoscopy as per Dr Sanchez. Patient is currently NPO except meds. Objective - Vital Signs/Intake and Output Vital Signs (last 24 hours): Temp Pulse Resp BP Pulse Ox 98.0 F 80 20 119/77 97 11/25/17 07:59 11/25/17 07:59 11/25/17 07:59 11/25/17 07:59 11/25/17 12:25 - Medications Medications: Current Medications Home Med (Patient's Own Medication) 250 tab PO Q6 CAROL Last Admin: 11/25/17 14:02 Dose: 250 tab Ceftriaxone Sodium 1 gm/ (Sodium Chloride) 100 mls @ 100 mls/hr IVPB DAILY CAROL; Protocol Last Admin: 11/25/17 09:36 Dose: 100 mls/hr Morphine Sulfate (Morphine) 2 mg IV Q6 PRN PRN Reason: Pain, severe (8-10) Last Admin: 11/25/17 09:36 Dose: 2 mg Sennosides (Senokot Tab) 8.6 mg PO DAILY CAROL Last Admin: 11/25/17 09:40 Dose: Not Given - Labs Labs: 11/24/17 13:56 11/24/17 13:56 PT 15.8 SECONDS (9.7-12.2) H 11/24/17 16:03 INR 1.4 11/24/17 16:03 APTT 33 SECONDS (21-34) 11/24/17 16:03 - Constitutional Appears: Non-toxic, No Acute Distress - Head Exam Head Exam: ATRAUMATIC, NORMAL INSPECTION, NORMOCEPHALIC - Eye Exam Eye Exam: EOMI, Normal appearance - ENT Exam ENT Exam: Mucous Membranes Moist, Normal Exam - Neck Exam Neck Exam: Full ROM, Normal Inspection - Respiratory Exam Respiratory Exam: Clear to Ausculation Bilateral, NORMAL BREATHING PATTERN. absent: Rales, Rhonchi, Wheezes - Cardiovascular Exam Cardiovascular Exam: REGULAR RHYTHM, +S1, +S2 - GI/Abdominal Exam GI & Abdominal Exam: Distended, Soft, Normal Bowel Sounds Additional comments: Morbidly obese abdomen - Extremities Exam Extremities Exam: absent: Calf Tenderness, Tenderness Additional comments: bilateral yellowish desquamation on both right and left soles and heel of feet. - Back Exam Back Exam: CVA tenderness (L), CVA tenderness (R), Full ROM - Neurological Exam Neurological Exam: Alert, Awake, Oriented x3 - Psychiatric Exam Psychiatric exam: Normal Affect, Normal Mood - Skin Skin Exam: Dry, Warm Additional comments: left lateral buttock/skin fold wound, stage II, healing, non purulent, non bloody, slight surrounding erythema Assessment and Plan - Assessment and Plan (Free Text) Plan: Ureteral Colic -CT abd/pelvis - Multiple bilateral renal calculi with large collection of stones in left renal collecting system, no hyronephrosis. Thick wall bladder wall.. Cholelithiasis, hepatomegaly with fatty hepatic infiltration. -morphine 2mg q6 prn -Uro consult, Dr. Sanchez - f/u recs after cystoscopy UTI/Pyelo -f/u urine/blood cx - pending -rocephin 1g qd - U/A - Protein 1+, Blood 2+, nitrate Positivem Leukocyte esterase 3+, WBC: 416, RBC 50, Bacteria Mod , Urine yeast occ Jabier's Dz - continue Penacillamine 250mg qd Sacral Wound -wound cx - gram stain, many gram positive cocci - pending final results -wound care Ppx -Pepcid 20mg po -SCD -DVT ppx contraindicated 2/2 hematuria Plan discussed with Dr Cruz, management as per Dr Nancy Hampton
[2017-11-25 14:25] LABS: BASO # 0.2 K/uL (0.0-0.2); BASO % 1.5 % (0.0-2.0); EOS # 0.3 K/uL (0.0-0.7); HEMOGLOBIN 13.4 g/dL (12.0-18.0); LYMPH # 1.7 K/uL (1.0-4.3); LYMPH % 16.2 % (20.0-40.0); MEAN CELL VOLUME 91.4 fL (80.0-94.0); MEAN CORPUSCULAR HEMOGLOBIN 30.4 pg (27.0-31.0); MEAN CORPUSCULAR HGB CONC 33.2 g/dL (33.0-37.0); MEAN PLATELET VOLUME 8.8 fL (7.2-11.7); MONO # 0.7 K/uL (0.0-0.8); NEUT # 7.6 K/uL (1.8-7.0); NEUT % 72.3 % (50.0-75.0); RBC 4.42 Mil/uL (4.40-5.90); RED CELL DISTRIBUTION WIDTH 14.5 % (11.5-14.5); WHITE BLOOD COUNT 10.4 K/uL (4.8-10.8)
[2017-11-25 14:53] LABS: ALB/GLOB RATIO 0.8 (1.0-2.1); ALBUMIN 3.1 g/dL (3.5-5.0); ALT/SGPT 35 U/L (21-72); AST/SGOT 27 U/L (17-59); BLOOD UREA NITROGEN 13 mg/dL (9-20); CALCIUM 8.9 mg/dl (8.6-10.4); GFR NON-AFRICAN AMERICAN > 60
[2017-11-25] MEDS ORDERED: Iohexol 240 (50 ml) ONE (16:06)
[2017-11-25] MEDS ORDERED: Propofol 10 mg/ml Inj (20 ML) ONE (16:06)
[2017-11-25] MEDS ORDERED: Gentamicin 80 mg in 0.9% NS 80 MG/100 ML BAG IVPB ONE (16:38)
[2017-11-25] MEDS ORDERED: HYDROmorphone 0.5 mg/0.5 ml ISec IVP PRN (17:08)
--- NOTE | 2017-11-25 17:25 | RAD ---
Date of service: 11/25/2017 PROCEDURE: Intraoperative Fluoroscopy. HISTORY: LEFT KIDNEY STONE/RETENTION FINDINGS: Fluoroscopic assistance was provided for cystogram. Please refer to the operative report from FREDA Uribe DR, MD. Total fluoroscopic time (continuous mode) utilized during the procedure 6.2 (seconds). Dose report: DLP 1.76 (mGy/m2):
--- NOTE | 2017-11-25 17:34 | RAD ---
Date of service: 11/25/2017 HISTORY: LEFT KIDNEY STONE /RETENTION COMPARISON: 08/14/2017 FINDINGS: BOWEL: Normal. No obstruction. No free air. BONES: Normal. OTHER FINDINGS: Stable calculi as visualized left kidney. Stable position of IVC filter. Removal of support apparatus since the prior study: Right double-J stent catheter IMPRESSION: No acute findings related to/accounting for the clinical presentation.
[2017-11-26 00:13] VITALS: RESP 20
[2017-11-26] MEDS: Morphine 4 MG/ML VIAL IV PRN ×4 (00:53→21:32)
[2017-11-26] MEDS: Lactated Ringer's 1,000 ML IV SCH ×4 (00:54→23:40)
[2017-11-26] MEDS: PENICILLAMINE 250 MG PO SCH ×5 (00:54→23:54)
--- NOTE | 2017-11-26 08:10 | CARD ---
APPROVED REPORT Date of service: 11/24/2017 EKG Measurement Heart [id number] [id number] <Conclusion> Normal sinus rhythm Cannot rule out Anterior infarct, age undetermined Abnormal ECG
--- NOTE | 2017-11-26 09:27 | PCM.URO ---
Urology Progress Note - Objective Lab Studies: Reviewed (dx: massive stone burden, urethral stricture , retention , plans : s/p iou, maintain collins , will discuss treatment of stones. Given his overall medical condition , with such a large stone burden he should be treated in an academic center . There is no need for acute treatment of the stones. Most likely his retention secondary to his urethral stricture is more pressing and now that he is s/p IOU and has an indwelling collins in place , he is treated . Will discuss further plans) Lab Results Last 24 Hours: Laboratory Results - last 24 hr 11/25/17 11/25/17 14:14 14:14 WBC 10.4 RBC 4.42 Hgb 13.4 Hct 40.4 MCV 91.4 MCH 30.4 MCHC 33.2 RDW 14.5 Plt Count 286 MPV 8.8 Neut % (Auto) 72.3 Lymph % (Auto) 16.2 L [place] % (Auto) 7.0 Eos % (Auto) 3.0 Baso % (Auto) 1.5 Neut # (Auto) 7.6 H Lymph # (Auto) 1.7 [place] # (Auto) 0.7 Eos # (Auto) 0.3 Baso # (Auto) 0.2 Sodium 141 Potassium 3.6 Chloride 109 H Carbon Dioxide 19 L Anion Gap 16 BUN 13 Creatinine 0.8 Est GFR ( Amer) > 60 Est GFR (Non-Af Amer) > 60 Random Glucose 112 H Calcium 8.9 Phosphorus 3.1 Magnesium 1.4 L Total Bilirubin 0.9 AST 27 ALT 35 Alkaline Phosphatase 64 Total Protein 6.9 Albumin 3.1 L Globulin 3.8 Albumin/Globulin Ratio 0.8 L Intake & Output: Intake & Output 11/25/17 11/26/17 11/26/17 18:59 06:59 18:59 Intake Total 350 850 Output Total 50 500 700 Balance 300 -500 150 Intake: IV 350 Intake, IV Amount 800 Left Hand 800 Oral 50 Output: Urine 50 500 700 Urethral (Collins) 500 700 Other: # Voids Urethral (Collins) 1 # Bowel Movements 0 Vital Signs: Vital Signs - 24 hr 11/25/17 11/25/17 11/25/17 12:25 17:08 17:15 Temperature 97.8 F Pulse Rate 79 Respiratory 13 Rate Blood Pressure 127/67 O2 Sat by Pulse 97 97 99 Oximetry 11/25/17 11/25/17 11/25/17 17:25 17:40 17:55 Temperature Pulse Rate 71 70 73 Respiratory 16 16 11 L Rate Blood Pressure 122/68 119/68 119/66 O2 Sat by Pulse 98 98 98 Oximetry 11/25/17 11/25/17 11/26/17 18:10 18:23 00:00 Temperature 97.2 F L 97.7 F 97.8 F Pulse Rate 75 78 81 Respiratory 16 18 20 Rate Blood Pressure 121/72 118/79 134/81 O2 Sat by Pulse 98 98 97 Oximetry 11/26/17 11/26/17 04:00 07:46 Temperature 98.2 F Pulse Rate 76 Respiratory 20 Rate Blood Pressure 116/70 O2 Sat by Pulse 97 97 Oximetry
[2017-11-26 11:23] LABS: BASO # 0.1 K/uL (0.0-0.2); BASO % 0.8 % (0.0-2.0); EOS # 0.3 K/uL (0.0-0.7); HEMOGLOBIN 13.2 g/dL (12.0-18.0); LYMPH # 1.5 K/uL (1.0-4.3); LYMPH % 17.5 % (20.0-40.0); MEAN CELL VOLUME 91.2 fL (80.0-94.0); MEAN CORPUSCULAR HEMOGLOBIN 30.1 pg (27.0-31.0); MEAN PLATELET VOLUME 8.4 fL (7.2-11.7); MONO # 0.6 K/uL (0.0-0.8); MONO % 6.9 % (0.0-10.0); NEUT # 6.1 K/uL (1.8-7.0); NEUT % 71.8 % (50.0-75.0); RBC 4.38 Mil/uL (4.40-5.90); RED CELL DISTRIBUTION WIDTH 14.2 % (11.5-14.5); WHITE BLOOD COUNT 8.5 K/uL (4.8-10.8)
[2017-11-26 11:36] LABS: ALB/GLOB RATIO 0.9 (1.0-2.1); ALBUMIN 3.1 g/dL (3.5-5.0); ALT/SGPT 26 U/L (21-72); AST/SGOT 20 U/L (17-59); BLOOD UREA NITROGEN 13 mg/dL (9-20); CALCIUM 8.6 mg/dl (8.6-10.4); GFR NON-AFRICAN AMERICAN > 60
--- NOTE | 2017-11-26 17:17 | CP.PCM.PN ---
Subjective - Date & Time of Evaluation Date of Evaluation: 11/26/17 Time of Evaluation: 09:00 - Subjective Subjective: PGY-[address] Cruz service Patient is seen and examined at bedside. Patient states "feeling ok". Patient states he has heartburn. Patient denies pain or burning at urination. Patient admits to having bowel movements. Patient denies fever, chills, chest pain, shortness of breath, diarrhea or constipation. Objective - Vital Signs/Intake and Output Vital Signs (last 24 hours): Temp Pulse Resp BP Pulse Ox 98.1 F 83 20 120/73 96 11/26/17 15:50 11/26/17 15:50 11/26/17 15:50 11/26/17 15:50 11/26/17 15:50 Intake and Output: 11/26/17 11/26/17 06:59 18:59 Intake Total 2150 Output Total 500 1650 Balance -500 500 - Medications Medications: Current Medications Famotidine (Pepcid) 20 mg PO Q12H [facility] Last Admin: 11/26/17 11:51 Dose: 20 mg Home Med (Patient's Own Medication) 250 tab PO Q6 [facility] Last Admin: 11/26/17 12:30 Dose: 250 tab Ceftriaxone Sodium 1 gm/ (Sodium Chloride) 100 mls @ 100 mls/hr IVPB DAILY [facility]; Protocol Last Admin: 11/26/17 10:26 Dose: 100 mls/hr Lactated Ringer's (Lactated Ringer's) 1,000 mls @ 100 mls/hr IV .Q10H [facility] Last Admin: 11/26/17 10:29 Dose: 100 mls/hr Morphine Sulfate (Morphine) 2 mg IV Q6 PRN PRN Reason: Pain, severe (8-10) Last Admin: 11/26/17 14:03 Dose: 2 mg Nystatin (Nystop Topical Powder) 1 applic TOP BID [facility] Sennosides (Senokot Tab) 8.6 mg PO DAILY [facility] Last Admin: 11/26/17 10:27 Dose: Not Given - Labs Labs: 11/26/17 11:15 11/26/17 11:15 PT 15.8 SECONDS (9.7-12.2) H 11/24/17 16:03 INR 1.4 11/24/17 16:03 APTT 33 SECONDS (21-34) 11/24/17 16:03 - Constitutional Appears: Well, Non-toxic, No Acute Distress - Head Exam Head Exam: ATRAUMATIC, NORMAL INSPECTION, NORMOCEPHALIC - Eye Exam Eye Exam: EOMI, Normal appearance - ENT Exam ENT Exam: Mucous Membranes Moist, Normal Exam - Neck Exam Neck Exam: Full ROM, Normal Inspection - Respiratory Exam Respiratory Exam: Clear to Ausculation Bilateral, NORMAL BREATHING PATTERN. absent: Accessory Muscle Use, Rhonchi, Wheezes, Respiratory Distress - Cardiovascular Exam Cardiovascular Exam: REGULAR RHYTHM, +S1, +S2 - GI/Abdominal Exam GI & Abdominal Exam: Soft, Normal Bowel Sounds. absent: Distended, Guarding, Tenderness - Extremities Exam Extremities Exam: Full ROM, Normal Inspection Additional comments: bilateral yellowish desquamation on both right and left soles and heel of feet. - Back Exam Back Exam: Full ROM, NORMAL INSPECTION - Neurological Exam Neurological Exam: Alert, Awake, Oriented x3 - Psychiatric Exam Psychiatric exam: Flat Affect, Normal Mood - Skin Skin Exam: Dry, Intact, Normal Color, Warm Additional comments: left lateral buttock/skin fold wound, stage II, healing, non purulent, non bloody. no significant changes. Assessment and Plan - Assessment and Plan (Free Text) Plan: Ureteral Colic s/p cystoscopy with Internal Optical Urethrotomy -CT abd/pelvis - Multiple bilateral renal calculi with large collection of stones in left renal collecting system, no hyronephrosis. Thick wall bladder wall. Cholelithiasis, hepatomegaly with fatty hepatic infiltration. -morphine 2mg q6 prn -Uro consult, Dr. Sanchez - -dx: massive stone burden, urethral stricture , retention , plans : s/p iou, maintain collins , will discuss treatment of stones. Given his overall medical condition , with such a large stone burden he should be treated in an academic center . There is no need for acute treatment of the stones. Most likely his retention secondary to his urethral stricture is more pressing and now that he is s/p IOU and has an indwelling collins in place , he is treated . Will discuss further plans - Will follow up Dr Sanchez's recs UTI/Pyelo -f/u blood cx - no growth after 48 hours - Urine cx - multiple species, suggest repeat specimen -rocephin 1g qd - U/A - Protein 1+, Blood 2+, nitrate Positivem Leukocyte esterase 3+, WBC: 416, RBC 50, Bacteria Mod , Urine yeast occ Jabier's Dz - continue Penacillamine 250mg qd Sacral Wound -wound cx - gram stain, many gram positive cocci - pending final results -continue wound care Ppx -Pepcid 20mg po Q12 -SCD -DVT ppx contraindicated 2/2 hematuria Plan discussed with Dr Cruz, management as per Dr Nancy Hampton, PGY-1
[2017-11-27] MEDS: Morphine 4 MG/ML VIAL IV PRN ×3 (03:34→16:16)
[2017-11-27] MEDS: PENICILLAMINE 250 MG PO SCH ×3 (06:21→17:45)
[2017-11-27] MEDS: Lactated Ringer's 1,000 ML IV SCH ×2 (09:00→10:21)
[2017-11-27 16:17] VITALS: BP 147/76; PULSE 80; TEMP 97.7; O2SAT 96
--- NOTE | 2017-11-27 17:48 | CP.PCM.PN ---
Subjective - Date & Time of Evaluation Date of Evaluation: 11/27/17 Objective - Vital Signs/Intake and Output Vital Signs (last 24 hours): Temp Pulse Resp BP Pulse Ox 97.7 F 80 20 147/76 96 11/27/17 16:00 11/27/17 16:00 11/27/17 16:00 11/27/17 16:00 11/27/17 16:00 Intake and Output: 11/27/17 11/27/17 06:59 18:59 Intake Total 1600 1200 Output Total 1200 1700 Balance 400 -500 - Medications Medications: Current Medications Famotidine (Pepcid) 20 mg PO Q12H [facility] Last Admin: 11/27/17 10:30 Dose: 20 mg Home Med (Patient's Own Medication) 250 tab PO Q6 [facility] Last Admin: 11/27/17 17:45 Dose: 250 tab Ceftriaxone Sodium 1 gm/ (Sodium Chloride) 100 mls @ 100 mls/hr IVPB DAILY [facility]; Protocol Last Admin: 11/27/17 10:12 Dose: 100 mls/hr Lactated Ringer's (Lactated Ringer's) 1,000 mls @ 100 mls/hr IV .Q10H [facility] Last Admin: 11/27/17 10:21 Dose: 100 mls/hr Morphine Sulfate (Morphine) 2 mg IV Q6 PRN PRN Reason: Pain, severe (8-10) Last Admin: 11/27/17 16:16 Dose: 2 mg Nystatin (Nystop Topical Powder) 1 applic TOP BID [facility] Last Admin: 11/27/17 17:45 Dose: 1 applic Sennosides (Senokot Tab) 8.6 mg PO DAILY [facility] Last Admin: 11/27/17 10:17 Dose: Not Given - Labs Labs: 11/26/17 11:15 11/26/17 11:15 PT 15.8 SECONDS (9.7-12.2) H 11/24/17 16:03 INR 1.4 11/24/17 16:03 APTT 33 SECONDS (21-34) 11/24/17 16:03
--- NOTE | 2017-11-27 17:49 | CP.PCM.DIS ---
Provider - Provider Date of Admission: 11/24/17 13:32 Attending physician: Juan Cruz Jr, MD Hospital Course - Lab Results Lab Results: Micro Results 11/24/17 16:22 Blood Blood Culture - Preliminary NO GROWTH AFTER 3 DAYS 11/24/17 16:22 Blood Blood Culture - Preliminary NO GROWTH AFTER 3 DAYS 11/25/17 07:00 Sacral Gram Stain - Final 11/25/17 07:00 Sacral Wound Culture - Preliminary Proteus Mirabilis Gram Positive Cocci 11/24/17 15:03 Urine Urine Culture - Final 50-100,000 CFU/ML. MULTIPLE SPECIES. SUGGEST REPEAT SPECIMEN. Most Recent Lab Values WBC 8.5 K/uL (4.8-10.8) 11/26/17 11:15 RBC 4.38 Mil/uL (4.40-5.90) L 11/26/17 11:15 Hgb 13.2 g/dL (12.0-18.0) 11/26/17 11:15 Hct 39.9 % (35.0-51.0) 11/26/17 11:15 MCV 91.2 fL (80.0-94.0) 11/26/17 11:15 MCH 30.1 pg (27.0-31.0) 11/26/17 11:15 MCHC 33.0 g/dL (33.0-37.0) 11/26/17 11:15 RDW 14.2 % (11.5-14.5) 11/26/17 11:15 Plt Count 238 K/uL (130-400) 11/26/17 11:15 MPV 8.4 fL (7.2-11.7) 11/26/17 11:15 Neut % (Auto) 71.8 % (50.0-75.0) 11/26/17 11:15 Lymph % (Auto) 17.5 % (20.0-40.0) L 11/26/17 11:15 [place] % (Auto) 6.9 % (0.0-10.0) 11/26/17 11:15 Eos % (Auto) 3.0 % (0.0-4.0) 11/26/17 11:15 Baso % (Auto) 0.8 % (0.0-2.0) 11/26/17 11:15 Neut # (Auto) 6.1 K/uL (1.8-7.0) 11/26/17 11:15 Lymph # (Auto) 1.5 K/uL (1.0-4.3) 11/26/17 11:15 [place] # (Auto) 0.6 K/uL (0.0-0.8) 11/26/17 11:15 Eos # (Auto) 0.3 K/uL (0.0-0.7) 11/26/17 11:15 Baso # (Auto) 0.1 K/uL (0.0-0.2) 11/26/17 11:15 PT 15.8 SECONDS (9.7-12.2) H 11/24/17 16:03 INR 1.4 11/24/17 16:03 APTT 33 SECONDS (21-34) 11/24/17 16:03 Sodium 140 mmol/L (132-148) 11/26/17 11:15 Potassium 3.5 mmol/L (3.6-5.2) L 11/26/17 11:15 Chloride 107 mmol/L (98-107) 11/26/17 11:15 Carbon Dioxide 21 mmol/L (22-30) L 11/26/17 11:15 Anion Gap 16 (10-20) 11/26/17 11:15 BUN 13 mg/dL (9-20) 11/26/17 11:15 Creatinine 0.8 mg/dL (0.8-1.5) 11/26/17 11:15 Est GFR ( Amer) > 60 11/26/17 11:15 Est GFR (Non-Af Amer) > 60 11/26/17 11:15 Random Glucose 199 mg/dL (75-110) H 11/26/17 11:15 Calcium 8.6 mg/dl (8.6-10.4) 11/26/17 11:15 Phosphorus 2.7 mg/dL (2.5-4.5) 11/26/17 11:15 Magnesium 1.3 mg/dL (1.6-2.3) L 11/26/17 11:15 Total Bilirubin 0.5 mg/dL (0.2-1.3) 11/26/17 11:15 AST 20 U/L (17-59) 11/26/17 11:15 ALT 26 U/L (21-72) 11/26/17 11:15 Alkaline Phosphatase 66 U/L (38-126) 11/26/17 11:15 Total Protein 6.6 g/dL (6.3-8.3) 11/26/17 11:15 Albumin 3.1 g/dL (3.5-5.0) L 11/26/17 11:15 Globulin 3.5 gm/dL (2.2-3.9) 11/26/17 11:15 Albumin/Globulin Ratio 0.9 (1.0-2.1) L 11/26/17 11:15 Urine Color Yellow (YELLOW) 11/24/17 14:13 Urine Clarity Hazy (Clear) 11/24/17 14:13 Urine pH 5.0 (5.0-8.0) 11/24/17 14:13 Ur Specific [place] 1.019 (1.003-1.030) 11/24/17 14:13 Urine Protein 1+ mg/dL (NEGATIVE) H 11/24/17 14:13 Urine Glucose (UA) Normal mg/dL (Normal) 11/24/17 14:13 Urine Ketones Negative mg/dL (NEGATIVE) 11/24/17 14:13 Urine Blood 2+ (NEGATIVE) H 11/24/17 14:13 Urine Nitrate Positive (NEGATIVE) H 11/24/17 14:13 Urine Bilirubin Negative (NEGATIVE) 11/24/17 14:13 Urine Urobilinogen Normal mg/dL (0.2-1.0) 11/24/17 14:13 Ur Leukocyte Esterase 3+ [place]/uL (Negative) H 11/24/17 14:13 Urine WBC (Auto) 416 /hpf (0-5) H 11/24/17 14:13 Urine RBC (Auto) 50 /hpf (0-3) H 11/24/17 14:13 Ur Squamous Epith Cells 3 /hpf (0-5) 11/24/17 14:13 Urine Bacteria Mod (<OCC) H 11/24/17 14:13 Urine Yeast (Budding) Occ /hpf (NEGATIVE) H 11/24/17 14:13 Discharge Exam - Head Exam Head Exam: ATRAUMATIC, NORMAL INSPECTION, NORMOCEPHALIC Discharge Plan - Discharge Medications Prescriptions: Ciprofloxacin [Cipro] 500 mg PO BID #20 tab - Follow Up Plan Condition: STABLE Disposition: HOME/ ROUTINE Instructions: How to Care for Your Sanchez Catheter, Male, Urinary Obstruction (DC), Sanchez Catheter, Male Additional Instructions: Patient has been cleared from urology standpoint for discharge. Per Dr. Sanchez, patient should be treated in a large academic center with such a large stone burden. There is no need for acute treatment of the stones at this point. The patient's retention is likely secondary to his urethral stricture, which has been treated with IOU. Indwelling catheter is now in place. Patient is instructed to go home with the catheter in place, has been provided a script for visiting nursing services to assist with catheter care and maintenance. Please follow up with Dr. Sanchez as outpatient upon discharge and schedule an appointment. Contact information has been provided below: Dr. Tristen Sanchez [facility] [place] [address] Patient has also been given scripts for a bariatric hospital bed at home, given his sacral ulcer, nutritional consultation at home, and continued social work services. Patient is instructed to continue all home medications as currently prescribed. Patient states that he does not require refills for any of his home meds. Patient is also instructed to take the following antibiotic, as prescribed: Ciprofloxacin 500 mg PO twice daily for a total of 10 days Patient is medically clear for discharge, per Dr. Cruz. Please return to the ED for worsening or persistent symptoms. Thank you and be well. Referrals: Juan Cruz Jr., MD [Medical Doctor] - Bassem Sanchez MD [Staff Provider] -
--- NOTE | 2017-12-08 11:27 | PN ---
DATE: 11/26/2017 See the history and physical. See the consultation. See the progress note. See the operative note. This is a postop note. The patient has the Sanchez catheter draining well. I discussed further plans with the patient, se below. Past medical and surgical, no other changes. REVIEW OF SYSTEMS: No other changes. PHYSICAL EXAMINATION: No other changes. DIAGNOSES: 1. Urethral stricture. 2. Urinary retention. 3. Urolithiasis with tremendously having stone burden, mostly on the left at this point. 4. Obesity. 5. Jabier's disease. 6. Nonambulation. ASSESSMENT AND PLAN: In summary, we discussed . I have discussed with Dr. Cruz's resident our recommendations for seeking out care at a more academic institute where there is some better backup. I discussed this at length with the patient and his mother. With his permission, I have discussed this with his mother. This is our best recommendation at this point, I would leave the Sanchez catheter in. I appreciate the assistance from the medical team from Dr. Cruz. We will continue to follow along. I encouraged the patient. Mohamud Sanchez MD
--- NOTE | 2017-12-08 11:56 | OP ---
PROCEDURE DATE: 11/25/2017 PREOPERATIVE DIAGNOSES: Urolithiasis with a tremendously heavy stone burden, possible recurrent infections, urethral stricture disease, urinary retention. POSTOPERATIVE DIAGNOSES: Urolithiasis with a tremendously heavy stone burden, possible recurrent infections, urethral stricture disease, urinary retention with recurrent stricture disease. PROCEDURES: Cystoscopy, internal optical urethrotomy, and cystogram. SURGEON: Mohamud Sanchez MD ESTIMATED BLOOD LOSS: Less than 10 mL. COMPLICATIONS: There were no complications. At the termination of the procedure, has an indwelling Sanchez catheter. We have not touched his stones. INDICATIONS: See history and physical and consultation. A very pleasant gentleman who has severe urolithiasis, heavy stone burden, we completely treated his right side. Regarding his left side, I have really recommended that he be treated at another institution with percutaneous nephrostolithotomy but specifically we have been asked to do consult, treating him here, but we are willing to put a stent in and see if this is really some of his burden. He has a generalized body pain, abdominal pain, also does occasionally have flank pain. He has recurrent positive urinary tract infections. This could be secondary to both his urethral stricture which we found today. It also could be secondary to the stones. We definitely would encourage treatment. The issue is where. It took tremendous effort, but we were able eventually to clear most of the right side, but regarding the left side, we are encouraging treatment elsewhere. Either way today, we brought him here for a cysto with a possible IOU, with a possible insertion of stent. After working on the stricture, I have decided for safety reasons to not place the stent. In addition, the patient has underlying medical issues, he also has apparently Jabier's disease. He is unable currently to walk, and I believe this contributes to some of his difficulties. After discussing various options, he is agreeable to the above procedure. DESCRIPTION OF PROCEDURE: After obtaining informed consent, the patient was placed on table. Routine monitors were placed. Timeout was called to confirm the correct patient and positioning. The cystoscope was introduced via urethra. We were not able to introduce the cystoscope secondary to stricture. See the picture. It is not absolutely pinpoint, but it is very narrow. I could not negotiate the scope pass there. At this point, I passed an olive tip catheter and then we used a cold knife and we incised anteriorly. Once we did this, we were able to put the scope in. The stricture was about 1 cm at most in length and it was in the pendulous urethra. The remainder of the bladder was otherwise unremarkable. There was some debris within the bladder but nothing outstanding. At this point, we had a catheter in place, and we did a cystogram. We confirmed our positioning. The patient tolerated the procedure without complication. Mohamud Sanchez MD
== END 2017-11-27 20:40 | disposition home or self-care (01) ==
LOC: C.ER 11:23 → C.9E 13:32 → C.5S 22:08
PROVIDERS: ADMIT Internal Medicine; ATTEND Internal Medicine
DX: N20.2 Calculus of kidney with calculus of ureter (principal); N35.919 Unspecified urethral stricture, male, unspecified site; N39.0 Urinary tract infection, site not specified; Z87.442 Personal history of urinary calculi; E83.01 Wilson's disease; K29.70 Gastritis, unspecified, without bleeding; N18.9 Chronic kidney disease, unspecified
CPT/HCPCS: 36415; 51600; 52276; 71045; 74018; 74176; 76000; 80048; 80053; 81001; 83735; 84100; 85025; 85610; 85730; 87040; 87070; 87086; 87181; 93005; 96361; 96365; 96366; 96375; 96376; 99285; C1758; G0378; J0696; J1170; J1580; J2001; J2270; J2704; J3010; J7120; Q9966